=== PATIENT | female | born 1945 | race Caucasian/White ===

== ENCOUNTER → 2017-07-19 15:17 | Outpatient (CLI) | payer MEDICARE, SELFPAY ==
--- NOTE | 2017-07-19 | DI.RAD.S_ITS ---
PROCEDURE: XR HIP W PEL IF DONE RT 2V INDICATIONS: right hip pain TECHNIQUE: AP pelvis with lateral view(s) of the right hip. COMPARISON: None. FINDINGS: Bones: No fractures or dislocations. Pelvic ring appears intact. No suspicious bony lesions. There is asymmetric hip joint osteoarthritis, mild on the left and moderately severe on the right Soft tissues: The visualized bowel gas pattern is normal. No suspicious soft tissue calcifications. IMPRESSION: Asymmetric hip joint osteoarthritis, mild on the left and moderately severe on the right. Dictated by: Toan Quinones M.D. on 07/19/2017 at 15:45 Approved by: Toan Quinones M.D. on 07/19/2017 at 15:45
== END ==
PROVIDERS: Family Provider Family Medicine; PCP Family Medicine; Visit Provider Family Medicine
DX: M16.0 Bilateral primary osteoarthritis of hip (principal); M25.551 Pain in right hip
CPT/HCPCS: 73502

== ENCOUNTER → 2017-09-20 08:10 | Outpatient (CLI) | payer MEDICARE, SELFPAY ==
[2017-09-20 09:26] LABS: Add Manual Diff / Slide Review NO; Basophils Percent Auto 0.6 % (0-2); Hemoglobin 13.3 g/dL (12.0-16.0); Lymphocytes Percent Auto 25.8 % (25-40); Mean Corpuscular HGB Conc 34.1 % (30-36); Monocytes Percent Auto 8.8 % (3-14); Neutrophils Absolute Auto 3900 /uL (3000-5900); Neutrophils Percent Auto 62.8 % (50-75); Platelet Count 327 X10^3/uL (150-400); Red Blood Cell Count 4.43 X10^6/uL (4.0-5.2); Red Cell Distribution Width 14.1 % (11.6-14.8); White Blood Cell Count 6.2 X10^3/uL (4.5-11.0)
[2017-09-20 09:42] LABS: Carbon Dioxide 25 mmol/L (22-32); Chloride 104 mmol/L (98-107); HEMOLYSIS < 15 (0-50); Potassium 3.8 mmol/L (3.4-5.1); Sodium 141 mmol/L (137-145)
== END ==
PROVIDERS: Family Provider Family Medicine; PCP Family Medicine; Visit Provider Orthopaedic Surgery
DX: M16.11 Unilateral primary osteoarthritis, right hip (principal); Z01.818 Encounter for other preprocedural examination; Z01.812 Encounter for preprocedural laboratory examination
CPT/HCPCS: 36415; 80051; 85025; 93005

== ENCOUNTER 2017-10-02 11:17 | Inpatient (IN) | payer MEDICARE, SELFPAY ==
[2017-09-27 08:43] VITALS: BMI 24.6
[2017-10-02] VITALS (14 sets, daily range): BP systolic 123–176; BP diastolic 61–82; PULSE 62–87; RESP 14–20; TEMP 35.9–37.1; O2SAT 94–100; BMI 24.1
--- NOTE | 2017-10-02 11:38 | DI.RAD.S_ITS ---
PROCEDURE: XR PELVIS 1-2V INDICATIONS: prosthesis placement TECHNIQUE: 1 view of the lower pelvis acquired. COMPARISON: [facility] [place], [place], XR PELVIS WITH LATERAL HIP RIGHT, 09/20/2017, 14:58. FINDINGS: Bones: Patient is status post right hip arthroplasty, with hardware components in expected positions. The hip joint appears congruent. The visualized bony structures appear intact. Soft tissues: Overlying postoperative changes are noted. No suspicious soft tissue densities. IMPRESSION: Acute postoperative changes of total right hip arthroplasty. Dictated by: Mukesh Sosa M.D. on 10/02/2017 at 16:11 Approved by: Mukesh Sosa M.D. on 10/02/2017 at 16:12
--- NOTE | 2017-10-02 11:39 | SUR.OPER ---
Lateral on padded OR bed. Gel axillary roll. Arms secured on padded armboard with pillow supporting top arm. Padded hip positioner braces x4 - anterior and posterior chest and pelvis. Additional gel pad used anterior pelvis. Gel pad under bottom leg from knee to foot and secured with tape over sheet.
[2017-10-02] MEDS: ACETAMINOPHEN 325 MG TABLET 975 MG PO (11:55)
[2017-10-02] MEDS: PREGABALIN 75 MG CAPSULE PO (11:55)
[2017-10-02] MEDS: CELECOXIB 200 MG CAPSULE PO (11:55)
[2017-10-02] MEDS: LACTATED RINGERS 1,000 ML 42 ML IV ×2 (12:19→14:58)
--- NOTE | 2017-10-02 13:27 | PM.PREOP ---
Pre-operative Note Interval Note Pre-op Check: Yes History & Physical Reviewed by Physician Changes: No
[2017-10-02] MEDS: CEFAZOLIN 2 GM/100 ML FROZ.PIGGY IV ×2 (14:00→21:54)
[2017-10-02] MEDS: BUPIVACAINE 0.25% W/ EPI VIAL 50 ML INJ (14:42)
--- NOTE | 2017-10-02 15:49 | PM.OP.1 ---
Operative Date/Time/Diagnoses Date of procedure: 10/02/17 Time of procedure: 15:49 Pre-op diagnosis: Right hip degenerative joint disease Post-op diagnosis: same Procedure & Clinicians Procedure: Right total hip arthroplasty (CPT code 02459 with wardrobe assistant) Same procedure as scheduled: Yes Indications: Patient is an 71-year-old female with severe right hip DJD. The patient has pain with activities and at rest, limited ambulation and activity tolerance, difficulties with ADLs, and failure of conservative treatment. We have discussed the nature of condition, treatment options, risks and benefits, and patient elects to proceed with total hip arthroplasty and gives informed consent. Surgeon: Lalo Mccray Financial Aid Officer: Argenis Bro Anesthesia Type: General and Spinal Operative Notes Closure Type: primary Specimen(s): none sent Implants & Drains: Acetabulum: Koehler and Nephew R3 acetabular component size 48 mm Femoral component: Koehler and Nephew Synergy stem size 13 with high offset Femoral head: 32 mm + 0 cobalt chrome Estimated Blood Loss (mL): 100 Blood products transfused: none Procedure in detail: After satisfaction induction of anesthetic, and administration of IV antibiotics, the patient was positioned in the lateral decubitus position with all bony prominences well padded and pelvic position secured using a hip spanish professor positioning device. Right hip and lower extremity prepped and draped in the usual sterile fashion, 1st dose of intravenous tranexamic acid was administered, then a longitudinal incision was created centered over the greater trochanter and carried sharply through the skin and subcutaneous tissues down to the fascia desiree which was divided longitudinally and retracted with a Charnley retractor. External rotators visualize, cut, tagged, and retracted posteriorly, then the capsule was cut in a T-type fashion with the corners tagged and retracted. Hip was dislocated and femoral neck cut made according to preoperative templating. Acetabular retractors then placed, and the acetabular labrum and osteophytes were excised. The acetabulum was then sequentially reamed to 47 mm with an excellent circumferential ream and fit with the trial. The trial component was removed and a permanent size 48 mm Koehler and Nephew R3 acetabular component was selected, positioned, and impacted with satisfactory position and fixation achieved. Permanent liner was then inserted with the elevated lip directed posteriorly. Soft tissue then removed off the lateral femoral neck in the lateral neck was entered using a box osteotome. T-handled reamers placed down the canal followed by sequential broaching to 13 with the final broach left in place for trial reduction which demonstrated good leg length, range of motion, and stability characteristics with a 32 mm +0 trial ball, however stability was markedly improved with a high offset trial neck and 32 mm +0 ball combination. The trial and broach were removed, and a permanent size 13 high offset Koehler and Nephew Synergy stem was selected and inserted with excellent position and fixation achieved. Another trial reduction yielded the above characteristics so the trial ball was exchanged for a permanent 32 mm +0 cobalt chrome ball. The hip was irrigated and reduced and excellent leg length range of motion and stability characteristics were achieved and maintained. The hip was copiously irrigated, and the capsule repaired with #2 Ethibond, and the piriformis was repaired back to the greater trochanter with the same. Fascia desiree closed with interrupted #1 Ethibond sutures, and the subcutaneous tissues were closed in 2 layers of 0 Vicryl and 2 0 Vicryl. Skin was closed with nathaniel and sterile dressings applied. Second dose of tranexamic acid was administered intravenously, and the anesthetic was terminated. Complications: none Condition: stable Disposition: PACU Plan for aftercare: Patient will be admitted to the acute care [facility], and anticipate discharge on postop day 1-2 with follow-up in office in 10-14 days. Outpatient physical therapy will be arranged and patient will continue to observe posterior hip precautions. Patient will continue use of postoperative Lovenox for 10 days postop.
--- NOTE | 2017-10-02 15:53 | P.OP_ITS ---
Operative Date/Time/Diagnoses Date of procedure: 10/02/17 Time of procedure: 15:49 Pre-op diagnosis: Right hip degenerative joint disease Post-op diagnosis: same Procedure & Clinicians Procedure: Right total hip arthroplasty (CPT code 74297 with emergency medicine physician assistant) Same procedure as scheduled: Yes Indications: Patient is an 71-year-old female with severe right hip DJD. The patient has pain with activities and at rest, limited ambulation and activity tolerance, difficulties with ADLs, and failure of conservative treatment. We have discussed the nature of condition, treatment options, risks and benefits, and patient elects to proceed with total hip arthroplasty and gives informed consent. Surgeon: Lalo Mccray Prepress Specialist: Argenis Bro Anesthesia Type: General and Spinal Operative Notes Closure Type: primary Specimen(s): none sent Implants & Drains: Acetabulum: Koehler and Nephew R3 acetabular component size 48 mm Femoral component: Koehler and Nephew Synergy stem size 13 with high offset Femoral head: 32 mm + 0 cobalt chrome Estimated Blood Loss (mL): 100 Blood products transfused: none Procedure in detail: After satisfaction induction of anesthetic, and administration of IV antibiotics, the patient was positioned in the lateral decubitus position with all bony prominences well padded and pelvic position secured using a hip security system technician positioning device. Right hip and lower extremity prepped and draped in the usual sterile fashion, 1st dose of intravenous tranexamic acid was administered, then a longitudinal incision was created centered over the greater trochanter and carried sharply through the skin and subcutaneous tissues down to the fascia desiree which was divided longitudinally and retracted with a Charnley retractor. External rotators visualize, cut, tagged, and retracted posteriorly, then the capsule was cut in a T-type fashion with the corners tagged and retracted. Hip was dislocated and femoral neck cut made according to preoperative templating. Acetabular retractors then placed, and the acetabular labrum and osteophytes were excised. The acetabulum was then sequentially reamed to 47 mm with an excellent circumferential ream and fit with the trial. The trial component was removed and a permanent size 48 mm Koehler and Nephew R3 acetabular component was selected, positioned, and impacted with satisfactory position and fixation achieved. Permanent liner was then inserted with the elevated lip directed posteriorly. Soft tissue then removed off the lateral femoral neck in the lateral neck was entered using a box osteotome. T-handled reamers placed down the canal followed by sequential broaching to 13 with the final broach left in place for trial reduction which demonstrated good leg length, range of motion, and stability characteristics with a 32 mm +0 trial ball, however stability was markedly improved with a high offset trial neck and 32 mm +0 ball combination. The trial and broach were removed, and a permanent size 13 high offset Koehler and Nephew Synergy stem was selected and inserted with excellent position and fixation achieved. Another trial reduction yielded the above characteristics so the trial ball was exchanged for a permanent 32 mm +0 cobalt chrome ball. The hip was irrigated and reduced and excellent leg length range of motion and stability characteristics were achieved and maintained. The hip was copiously irrigated , and the capsule repaired with #2 Ethibond, and the piriformis was repaired back to the greater trochanter with the same. Fascia desiree closed with interrupted #1 Ethibond sutures, and the subcutaneous tissues were closed in 2 layers of 0 Vicryl and 2 0 Vicryl. Skin was closed with nathaniel and sterile dressings applied. Second dose of tranexamic acid was administered intravenously , and the anesthetic was terminated. Complications: none Condition: stable Disposition: PACU Plan for aftercare: Patient will be admitted to the acute care vera, and anticipate discharge on postop day 1-2 with follow-up in office in 10-14 days. Outpatient physical therapy will be arranged and patient will continue to observe posterior hip precautions. Patient will continue use of postoperative Lovenox for 10 days postop.
--- NOTE | 2017-10-02 16:51 | PC.NURSE ---
Addendum entered by Jessica Small R.N. 10/02/17 19:34: RA oxygen 88% while sleeping, pulse ox alarming. 2L O2 NC applied, saturation now 95-98% Emi reports residual numbness to RLE, unable to feel cold or warm sensation to leg, does feel pressure of nurse hand. R hip drsg is CDI. Able to void via bedpan, although missed and soaked towel and inc pad. Linens changed. After laying patient flat for repositioning, she sat back up and immediately had 100 ml emesis in blue bag. Denies feeling nauseated, saying I didn't expect that. Zofran SL administered. Pt instructed to call if she has more emesis or nausea, or any pain. Spouse visiting at bedside. Original Note: Post-op note: Emi brought up from PACU via hospital bed. She is awake & Ox3. Denies any pain or nausea, states hungry. Ice water, juice & jello given, post-op teaching given. Post-op VS stable. RA oxygen 96% Right hip drsg is CDI, ice pack in place. Reports numbness to legs, wiggling toes and can move both feet. SCD's placed bilaterally. Call button in reach, pt oriented to hospital room & call button, instructed her to call nurse for any questions or concerns. Visiting with family in room.
[2017-10-02] MEDS: LACTATED RINGERS 1,000 ML 125 ML IV (17:28)
[2017-10-02] MEDS: ONDANSETRON 4 MG ODT PO ×2 (18:54→22:13)
[2017-10-02] MEDS: METOCLOPRAMIDE 10 MG/2 ML INJ IV (20:30)
[2017-10-03] MEDS: LACTATED RINGERS 1,000 ML 125 ML IV (01:34)
[2017-10-03 04:57] VITALS: BP 116/71; PULSE 87; RESP 16; TEMP 36.4; O2SAT 98
[2017-10-03 05:41] LABS: Hematocrit 33.3 % (36-46); Hemoglobin 11.3 g/dL (12.0-16.0)
[2017-10-03 05:43] VITALS: BP 116/71; PULSE 87; RESP 17; TEMP 36.4; O2SAT 98
[2017-10-03] MEDS: CEFAZOLIN 2 GM/100 ML FROZ.PIGGY IV (06:01)
[2017-10-03] MEDS: PANTOPRAZOLE 40 MG TABLET PO (06:05)
[2017-10-03] MEDS: LEVOTHYROXINE 50 MCG TABLET PO (06:05)
--- NOTE | 2017-10-03 08:11 | PM.DS.1 ---
History of Present Illness Date Patient Seen: 10/03/17 Time Patient Seen: 08:23 Chief complaint: total hip arthroplasty [id number] Narrative: Patient seen bedside status post right PAKO postop day 1. Patient is doing well, her pain is well controlled and the nausea that she experienced overnight has resolved. She has not yet worked with physical therapy but would like to go home once cleared by them. She denies any chest pain shortness of breath nausea vomiting Discharge Providers Date of admission: 10/02/17 11:17 Primary care physician: Ford Bello MD Consults: 10/02/17 16:47 Consult to Discharge Planning Routine Comment: Consult to Physical Therapy Evaluate & Treat Comment: Physician Instructions: post op PAKO protocol Consult to Respiratory Therapy Evaluate & Treat Comment: Physician Instructions: Evaluate and treat 10/02/17 17:26 Consult to Dietitian, Adult Routine Comment: Reason For Exam: recent weight loss, Discharge provider: Nubia Diaz PA-C Summary Discharge Diagnosis: Right hip osteoarthritis Hospital Course: Patient is admitted status post right PAKO by Dr. Mccray on 10/02/2017. She has transitioned to the acute Care for after tolerating the procedure well no major complications. She had a bout of nausea overnight a bit difficult for her to work with physical therapy but that has since resolved. She is ready to be discharged home with outpatient PT once cleared by Physical therapy. She will have Lovenox for DVT prophylaxis and hydrocodone for pain. Status at Discharge Cognitive/behavioral status at discharge: Alert and oriented x4 Functional status at discharge: uses cane/walker Overall status at discharge: patient is progressing back to baseline Time Spent with Patient Less than 30 minutes Exam Vital Signs (past 8 hours): - 10/03/17 04:57 10/03/17 05:43 Temperature 97.5 F L 97.5 F L Pulse Rate 87 87 Respiratory Rate 16 17 Blood Pressure 116/71 116/71 Pulse Oximetry 98 98 Oxygen Delivery Method Nasal Cannula Narrative Exam Narrative: The patient is well-developed well-nourished in no acute distress. Patient alert and oriented x3. Exam with dressing that is clean dry and intact on the right hip. She has full range of motion at the knee and ankle in her calves are soft and compressible. She is neurovascularly intact in the right lower extremity. Objective Labs Result Diagrams: 10/03/17 05:10 Labs: Laboratory Results - last 24 hr 10/03/17 05:10 Hgb 11.3 L Hct 33.3 L Discharge Plan Discharge Plan Patient Disposition: Home, Self-Care Discharge Med Rec/Prescriptions Prescriptions: New enoxaparin [Lovenox] 40 mg/0.4 mL Syringe 40 mg Sub-Q DAILY Qty: 4 RF: 0 hydrocodone-acetaminophen 5-325 mg Tablet 1 tab PO Q4HR PRN (Reason: pain) Qty: 60 RF: 0 hydroxyzine pamoate 25 mg Capsule 25 mg PO Q6HR PRN (Reason: Spasms) Qty: 0 RF: 0 Continue omeprazole 40 mg Capsule,Delayed Release(Dr/Ec) 40 mg PO QAM RF: 0 trazodone 100 mg Tablet 100 - 150 mg PO BEDTIME PRN (Reason: Sleep) RF: 0 levothyroxine [Synthroid] 50 mcg Tablet 50 mcg PO DAILY RF: 0 albuterol sulfate [ProAir HFA] 90 mcg/actuation Hfa Aerosol Inhaler 2 puff INHALATION Q4-6H PRN (Reason: asthma) RF: 0 Follow up/Referrals: [facility] [Provider Group] - 10/13/17 4:00 pm (f/u with Argenis Bro PA-C at the [facility] office) Provider Discharge Instructions Diet: Diet as Tolerated Activity: WBAT, use walker to ambulate until cleared by PT. Follow posterior hip precautions Cold/Heat Therapy: Ice for 20 minutes at a time at least hourly Wound Care Report to your healthcare provider any signs of infection, such as:: chills, fever, night sweats, increased pain and unusual drainage Dressing: Keep dressing clean, dry, and intact until follow up visit. Visit Report/Discharge Packet Instructions: DI for Hip Replacement Visit Report Forms: Stroke Signs & Symptoms Discharge Data Primary Care Provider: Ford Bello Attending Provider: Lalo Mccray Admit Date/Time: 10/02/17 11:17 Quality VTE Deep Vein Thrombosis/Pulmonary Embolism Present on Admission: No
[2017-10-03 09:00] VITALS: BP 144/76; PULSE 85; RESP 18; TEMP 36.6; O2SAT 98
[2017-10-03] MEDS: ENOXAPARIN 40 MG/0.4 ML SYRINGE SUBCUT (09:45)
[2017-10-03 10:06] VITALS: O2SAT 98
--- NOTE | 2017-10-03 10:16 | CM.DANOTE ---
Discharge Planning/Care Management DCP: assessment: case received, EMR reviewed and met with pt and her at 0800. Introduced self and role. Pt is a 71 year old female who admitted yesterday for a planned PAKO. Surgeon: Dr. Mccray Payer: Medicare and [facility]. PCP: Dr. Bello PT is ordered. OT order is obtained. Pt is clear that her plan is for home when stable for same and her expectation was that she would probably be here for a couple days. She said Dr. Mccray had discussed snf rehab option with her but noted I told him I had no intention of going anywhere other than home. Her confirms she is able to give supportive care. P: check in again prn and follow for d/c needs that may arise. Pt and spouse are aware that Medicare will cover an array rehab options at d/c. CM Discharge Assessment Start: 10/03/17 09:59 Freq: Status: Active Protocol: Document 10/03/17 09:59 ITV (Rec: 10/03/17 10:16 ITV [id number]) Discharge Planning Assessment History Provided By Patient Family Member Medical Record Is this patient on Medicare? Yes Prior Living Arrangements House Household Members spouse Independent with ADL's Yes Is patient alert and oriented? Yes Comment pt with planned PAKO, OT and PT will see her today. She plans home with spouse supportive assist (he is at bedside and will be part of therapy training.) Discharge Plan Home Transportation Arrangement spouse will drive her Additional Comment ortho has put a d/c order in but is reportedly pending how pt does today medically and with therapy Review Status In Process Next Review Type Continued Stay Review
--- NOTE | 2017-10-03 11:55 | OT.IP.EVAL ---
Current Diagnoses Unilateral primary osteoarthritis, right hip (10/02/17) Surgery Performed Operation Date: 10/02/17 14:30 Actual Procedures p Total Hip Arthroplasty(Right) - Lalo Mccray MD Past Medical History (Last Reviewed 10/03/17 @ 08:22 by Isis Woods, PT) Asthma (Acute) Elevated cholesterol (Acute) GERD (gastroesophageal reflux disease) (Acute) Hearing loss (Acute) Hypothyroidism (Acute) Melanoma (Acute) Surgical History (Last Reviewed 10/03/17 @ 08:22 by Isis Woods, PT) Hx of Achilles tendon repair (Acute) Hx of tonsillectomy (Acute) Status post cataract extraction of both eyes with insertion of intraocular lens (Acute) Occupational Therapy Inpatient Evaluation/Re-Eval M1 PT/OT-IP Prior Functional Status Start: 10/03/17 11:48 Freq: NEEDED Status: Active Protocol: Document 10/03/17 11:55 PJOmid (Rec: 10/03/17 17:06 DNANIELLE [id number]) Medical Review Prior Functional Status Medical History Reviewed Yes Diet/Fluid Consistency Regular Communication WNL Mobility and Gait Independent without device, community distances Activities of Daily Living and IADL's Independent Social History Household Members spouse Living Arrangements House Number of Floors (Floors) One Floor Number of Stairs To Enter/Railing? 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 Pt declines sock aid as she prefers to assist PRN. M2 OT-IP Current Condition Start: 10/03/17 16:54 Freq: Status: Active Protocol: Document 10/03/17 11:55 PJM (Rec: 10/03/17 17:06 PJM [id number]) Occupational Therapy Current Condition Current Condition Evaluation Date 10/03/17 Treatment Diagnosis decreased self care, functional mobility after R PAKO Diagnosis Onset Date 10/02/17 Post Operative Precautions Posterior Hip Precautions No Hip Flexion > 90 degrees No Hip Internal Rotation No Hip Adduction Weight Bearing Status Weight Bearing Status Weight Bear as Tolerated M3 OT- IP Subjective and Pain Start: 10/03/17 16:54 Freq: Status: Active Protocol: Document 10/03/17 11:55 DANNIELLEOmid (Rec: 10/03/17 17:06 [facility] [id number]) OT- Subjective Occupational Therapy Visit Type Type Initial Evaluation Visit Start Time 11:20 Visit Stop Time 11:55 Total Visit Minutes 35 Notes Pt's here for education. Occupational Therapy Visit Comments Patient Comments I need you to remind me to do everything right. I don't want to break the rules. Patient/Caregiver Goals to go home OT Pain Assessment Pain When Pain Assessed After Treatment Pain Present Pain Present Denied Pain M4 OT- IP ADL's Start: 10/03/17 16:54 Freq: Status: Active Protocol: Document 10/03/17 11:55 CHARLEEN (Rec: 10/03/17 17:06 [facility] [id number]) OT [id number] General Evaluation Diet Level for Self-Feeding regular Self-Feeding Ability Independent OT ADL-Grooming General Evaluation Grooming Ability Standby Assistance Areas Needing Assistance Face Washing Comments OT Grooming Comments standing at sink OT ADL-Oral Care General Eval Oral Care Ability Standby Assistance Comments Oral Care Comments standing at sink OT ADL-Dressing Comments OT Dressing Comments Began education re: equipment options OT ADL-Toileting General Evaluation Toileting Ability Standby Assistance Areas Needing Assistance Manage Clothing Perform Perineal Hygiene Devices Toileting Assistive Devices Raised Toilet Seat OT ADL-Bathing Comments OT Bathing Comments to be assessed M5 OT- IP IADL's Start: 10/03/17 16:54 Freq: Status: Active Protocol: Document 10/03/17 11:55 CHARLEEN (Rec: 10/03/17 17:06 [facility] [id number]) OT-Instrumental Activities of Daily Living Deficits IADL Deficits Identified Deficits Home Safety Awareness Awareness of Need for Assistance at Home Good Awareness Ability to Problem Solve Emergency Able to Problem Solve Situations Medication Management Medication Management No Deficits Identified Money Management Money Management No Deficits Identified Meal Preparation Meal Preparation Caregiver Provides Assist Meal Preparation Comments to assist until pt able Financial Systems Director Financial Systems Director Caregiver Provides Assist Financial Systems Director Comments to assist until pt able Driving Driving Caregiver Provides Assist Driving Comments to assist until pt able M6 OT- IP Functional Cognition Start: 10/03/17 16:54 Freq: Status: Active Protocol: Document 10/03/17 11:55 CHARLEEN (Rec: 10/03/17 17:06 [facility] [id number]) Cognitive Factors Limiting Selfcare Function Cognitive Ability Level of Alertness Alert Patient Orientation Name Age Birthday Month Date Year Day of Week Place Situation Attention Span Ability Capable of Focused Attention Ability to Follow Commands Able to Follow One Step Commands Memory Description Short Term Impaired Safety Awareness Decreased Ability to Apply Precautions Problem Solving Ability Needs Assist to Identify Solutions Cognitive Comments Cognitive Assessment Comments Pt needs mod verbal cues to avoid forward bending and twisting on turns. able to cue pt appropriately. OT- Vision and Hearing OT- Hearing Assessment OT- Hearing Assessment WFL OT- Vision Assessment Visual Acuity WFL Glasses All The Time Vision Assessment Comments Pt denies any recent changes. M7 OT- IP Mobility and Balance Start: 10/03/17 16:54 Freq: Status: Active Protocol: Document 10/03/17 11:55 PJM (Rec: 10/03/17 17:06 [facility] [id number]) OT- Bed Mobility Assessment Scooting Scooting Up and Down in Bed Minimal Assistance OT-Transfer Assessment Sit to and From Stand Sit to and from Stand Contact Guard Assistance Transfers Transfer Ability Contact Guard Assistance Technique Transfer Destination Chair Toilet Transfer Technique Stand Step Pivot Devices Transfer Assistive Devices Gait Belt Front Wheeled Walker Comments Mobility Comments Mod cues for hand placement and R foot placement OT- Gait Assessment Gait Gait Assistance Required: Contact Guard Assist Assistive Devices Assistive Device Gait Belt Front Wheeled Walker OT- Balance Assessment Sitting Balance and Reactions Static Sitting Balance Ability Normal Dynamic Sitting Balance Ability Good Standing Balance and Reactions Static Standing Balance Ability Good Dynamic Standing Balance Ability Good M8 OT- IP Objective Assessments Start: 10/03/17 16:54 Freq: Status: Active Protocol: Document 10/03/17 11:55 PJM (Rec: 10/03/17 17:06 [facility] [id number]) OT Gross Range of Motion Upper Extremity Range of Motion Assessment Within Functional Limits OT Strength Upper Extremity Strength Assessment Within Functional Limits OT- Coordination Assessment Upper Extremity Finger to Nose Test Within Functional Limits Finger Tapping Test Within Functional Limits OT Sensation Assessment Comments Summary Comments BUE WNL M9 OT- IP Assessment and Plan Start: 10/03/17 16:54 Freq: Status: Active Protocol: Document 10/03/17 11:55 PJM (Rec: 10/03/17 17:06 [facility] [id number]) OT Summary Assessment and Plan Potential Rehabilitation Potential Excellent Analytic Complexity at Evaluation Low Summary OT Impairments Functional Cognition Functional Mobility Dressing Bathing Shower Transfers Assessment Summary Low complexity OT assessment completed with emphasis on adapted self care skills within posterior hip precautions. Pt has mild deficits in functional mobility and lower body dressing, bathing, toileting and need mod cues to follow hip precautions during functional tasks. Supportive can cue pt appropriately and will provide 24 hr assist at d/c. Plan 1 additional OT visit after lunch for shower and dressing training prior to d/c later today. Goals Dressing Goal Standby Assistance Bathing Goal Minimal Assistance Shower Transfer Goal Contact Guard Assistance Patient/Caregiver Education Goal Demonstrate Post-Op Precautions Caregiver Independent Assisting Patient Frequency of Treatment Frequency Of Treatment Twice a Day Treatment Plan OT Treatment Plan ADL Training Patient/Family Education Discharge Planning Discharge Recommendations OT Discharge Recommendations Home with 19/09 Assist
--- NOTE | 2017-10-03 11:58 | PT.IIE ---
Current Diagnoses Unilateral primary osteoarthritis, right hip (10/02/17) Surgery Performed Operation Date: 10/02/17 14:30 Actual Procedures p Total Hip Arthroplasty(Right) - Lalo Mccray MD Surgical History (Last Reviewed 10/03/17 @ 08:22 by Isis Woods, PT) Hx of Achilles tendon repair (Acute) Hx of tonsillectomy (Acute) Status post cataract extraction of both eyes with insertion of intraocular lens (Acute) Medical History (Last Reviewed 10/03/17 @ 08:22 by Isis Woods, PT) Asthma (Acute) Elevated cholesterol (Acute) GERD (gastroesophageal reflux disease) (Acute) Hearing loss (Acute) Hypothyroidism (Acute) Melanoma (Acute) Physical Therapy Inpatient Evaluation/Re-Eval M1 PT/OT-IP Prior Functional Status Start: 10/03/17 11:48 Freq: NEEDED Status: Active Protocol: Document 10/03/17 11:48 DLM (Rec: 10/03/17 11:58 DLM [id number]) Medical Review Prior Functional Status Medical History Reviewed Yes Diet/Fluid Consistency Regular Communication WNL Mobility and Gait Independent without device, community distances Activities of Daily Living and IADL's Independent Social History Household Members spouse Living Arrangements House Number of Floors (Floors) One Floor Number of Stairs To Enter/Railing? 0 Home Environment Standard Height Toilet Home Equipment Front Wheel Walker Raised Toilet Seat w/Armrests Employment Status Retired M2 PT-IP Current Condition Start: 10/03/17 11:48 Freq: NEEDED Status: Active Protocol: Document 10/03/17 11:48 DLM (Rec: 10/03/17 11:58 DLM [id number]) Physical Therapy Current Condition Current Condition Evaluation Date 10/03/17 Treatment Diagnosis right PAKO, posterior, impaired gait Precautions Posterior Hip Precautions No Hip Flexion > 90 degrees No Hip Internal Rotation No Hip Adduction Weight Bearing Status Weight Bearing Status Weight Bear as Tolerated M3 PT-IP Subjective Start: 10/03/17 11:48 Freq: NEEDED Status: Active Protocol: Document 10/03/17 11:48 DLM (Rec: 10/03/17 11:58 DLM [id number]) Subjective Physical Therapy Visit Type Type Initial Evaluation Visit Start Time 09:40 Visit Stop Time 10:26 Total Visit Minutes 46 Physical Therapy Visit Comments Patient Comments She hopes to go home today, soreness is starting in her hip Therapy Pain Assessment Pain When Pain Assessed During Mobility Pain Present Pain Present Pain Reported Location Right Hip Intensity 3 Scale Used Numeric (1 - 10) Description Aching Pain Management Techniques Apply Cold Re-positioning M4 PT-IP Mobility and Gait Start: 10/03/17 11:48 Freq: NEEDED Status: Active Protocol: Document 10/03/17 11:48 DL (Rec: 10/03/17 11:58 DL [id number]) PT-Bed Mobility Assessment Supine to Sit Supine to Sit Minimal Assistance Scooting Scooting to Edge of Bed Standby Assistance PT-Transfer Assessment Sit to and From Stand Sit to and from Stand Contact Guard Assistance Use of Upper Extremities Equipment Transfer Assistive Device Gait Belt Front Wheeled Walker Transfers Transfer Destination Chair Transfer Technique Stand Step Pivot Transfer Ability Level of Assist Contact Guard Assistance Gait Assessment Gait Gait Assistance Required: Contact Guard Assist Distance (Feet) (feet) 20 Able to Maintain Weight Bearing Status Yes During Gait Assistive Devices Assistive Device Gait Belt Front Wheeled Walker Orthotic/Prosthetic Devices or Brace: No Gait Deviations General Gait Pattern Antalgic Step-to Gait Factors Limiting Gait Function Factors Limiting Gait Function Decreased Activity Tolerance Decreased Strength Pain Comments Gait Comments pt left up in recliner with Spouse visiting and call light close, ice on right thigh area PT-Balance Assessment Sitting Balance and Reactions Static Sitting Balance Ability Normal Dynamic Sitting Balance Ability Normal Standing Balance and Reactions Static Standing Balance Ability Good Dynamic Standing Balance Ability Good Device Used FWW M5 PT-IP Objective Assessments Start: 10/03/17 11:48 Freq: NEEDED Status: Active Protocol: Document 10/03/17 11:48 DL (Rec: 10/03/17 11:58 [facility] [id number]) Orientation Orientation/Cognition Level of Alertness Alert Orientation Name Age Birthday Month Date Year Day of Week Place Situation Language Function Ability No Deficits Noted Safety Awareness Understands Safety Issues Memory Description No Deficits Noted Comments she needs repetition of hip precaution information and verbal cuing during mobility Gross Range of Motion Upper Extremity ROM Assessment Within Functional Limits Lower Extremity ROM Assessment Right Impaired Impairments post-op restrictions right hip with pain Strength Upper Extremity Strength Assessment Within Functional Limits Lower Extremity Strength Assessment Right Impaired Hip flexion 2+/5, needs assist to move Left LE in bed Knee 4/5 Ankle DF 5/5 Coordination Assessment Gross Coordination Gross Coordination WNL Sensation Assessment Sensation Gross Sensation WNL Muscle Tone Muscle Tone WNL Yes M6 PT-IP Treatment Start: 10/03/17 11:48 Freq: NEEDED Status: Active Protocol: Document 10/03/17 11:48 DLM (Rec: 10/03/17 11:58 DLM [id number]) Physical Therapy Treatment Exercises Exercises Ankle Pumps Gluteal Sets Quad Sets Education Education Provided Precautions Weight Bearing Status Post-Op Packet Safety Equipment Issued Equipment Type and Company pt has her FWW from home in her room M7 PT-IP Assessment and Plan Start: 10/03/17 11:48 Freq: NEEDED Status: Active Protocol: Document 10/03/17 11:48 DLM (Rec: 10/03/17 11:58 DLM [id number]) PT Summary Assessment and Plan Potential Rehabilitation Potential Excellent Status of Condition at Evaluation Evolving Summary Impairments Pain ROM Strength Balance Bed Mobility Transfers Gait Activity Tolerance Assessment Summary She tolerated activity well this visit with mild increase in hip pain with activity. She has a supportive Spouse to help at discharge who is present this visit and participated in training. She needs reminders for her hip precautions. Pt has a tall bed at home and has to be able to get up on a step before getting into bed. Will plan to do one more treatment session with plan for possible discharge home this afternoon. Goals Bed Mobility Goal Independent Transfer Goal Independent Front Wheeled Walker Gait Goal Independent Front Wheel Walker Gait Distance 100 Other Goals up and down from a step with fWW to get onto tall bed, SBA Days to Meet Goals 2 Frequency of Treatment Frequency Of Treatment Twice a Day Treatment Plan Physical Therapy Treatment Plan Bed Mobility Training Transfer Training Gait Training Therapeutic Exercise Balance Retraining Post Op Education Discharge Planning Hot or Cold Pack Other Recommendations and Next Treatment up and down step for getting Focus into bed at home, HEP, hip precaution education Recommendations To Nursing Amount of Assist Needed 1 Person Assist Discharge Recommendations PT Discharge Recommendations Home with Assistance Outpatient PT
--- NOTE | 2017-10-03 14:20 | OT.IP.TRT ---
Current Diagnoses Unilateral primary osteoarthritis, right hip (10/02/17) Surgery Performed Operation Date: 10/02/17 14:30 Actual Procedures p Total Hip Arthroplasty(Right) - Lalo Mccray MD Occupational Therapy Treatment Note M2 OT-IP Current Condition Start: 10/03/17 16:54 Freq: Status: Active Protocol: Document 10/03/17 11:55 PJM (Rec: 10/03/17 17:06 PJM [id number]) Occupational Therapy Current Condition Current Condition Evaluation Date 10/03/17 Treatment Diagnosis decreased self care, functional mobility after R PAKO Diagnosis Onset Date 10/02/17 Post Operative Precautions Posterior Hip Precautions No Hip Flexion > 90 degrees No Hip Internal Rotation No Hip Adduction Weight Bearing Status Weight Bearing Status Weight Bear as Tolerated M3 OT- IP Subjective and Pain Start: 10/03/17 16:54 Freq: Status: Active Protocol: Document 10/03/17 14:20 PJM (Rec: 10/03/17 17:15 PJM [id number]) OT- Subjective Occupational Therapy Visit Type Type Treatment Note Visit Start Time 13:40 Visit Stop Time 14:20 Total Visit Minutes 40 Notes here for education. Occupational Therapy Visit Comments Patient Comments I want to take a shower before I go home. OT Pain Assessment Pain When Pain Assessed After Treatment Pain Present Pain Present Pain Reported Location Right Hip Intensity 6 Scale Used Numeric (1 - 10) Description Aching M4 OT- IP ADL's Start: 10/03/17 16:54 Freq: Status: Active Protocol: Document 10/03/17 14:20 PJM (Rec: 10/03/17 17:15 PJM [id number]) OT ADL-Dressing General Eval Upper Body Dressing Ability Independent Lower Body Dressing Ability Moderate Assistance Areas Needing Assistance Pants/Shorts Socks Shoes Assistive Devices Dressing Assistive Devices Long Handled Shoe Horn Housecleaner Floor Comments OT Dressing Comments Pt educated re: use of medical staffing coordinator and long shoe horn, but she prefers to assist today due to fatigue. Housecleaner Floor and longshoe horn provided. Pt declines sock aid, to assist PRN. Pt indep doffing B socks with medical staffing coordinator. OT ADL-Toileting General Evaluation Toileting Ability Independent OT ADL-Bathing Bathing Type Bathing Type Shower General Evaluation Bathing Ability Minimal Assistance Areas Needing Assistance Wash/Dry Lower Extremities Devices Bathing Equipment Long Handled Sponge or Stock Feeder Held Shower Sprayer Shower Chair with Arms Grab Bars Comments OT Bathing Comments Pt plans to stand at home in shower stall with SBA from . Provided education/ demo re: shower stall transfer technique for crossing threshold and pt/hsuabnd verbalize understanding. can assist PRN with shower. Pt needs min verbal cues to avoid forward bending. M6 OT- IP Functional Cognition Start: 10/03/17 16:54 Freq: Status: Active Protocol: Document 10/03/17 14:20 PJM (Rec: 10/03/17 17:15 PJ [id number]) Cognitive Factors Limiting Selfcare Function Cognitive Ability Level of Alertness Alert Cognitive Comments Cognitive Assessment Comments Pt needed min cues this session to follow hip precautions. cueing her appropriately. M7 OT- IP Mobility and Balance Start: 10/03/17 16:54 Freq: Status: Active Protocol: Document 10/03/17 14:20 PJM (Rec: 10/03/17 17:15 PJ [id number]) OT-Transfer Assessment Sit to and From Stand Sit to and from Stand Standby Assistance Transfers Transfer Ability Contact Guard Assistance Technique Transfer Destination Car Shower Stall Comments Mobility Comments Provided education re: shower stall and car transfers and pt / verbalize understanding. OT- Gait Assessment Gait Gait Assistance Required: Standby Assistance Assistive Devices Assistive Device Gait Belt Front Wheeled Walker OT- Balance Assessment Sitting Balance and Reactions Static Sitting Balance Ability Good Dynamic Sitting Balance Ability Good Standing Balance and Reactions Static Standing Balance Ability Good Dynamic Standing Balance Ability Good M9 OT- IP Assessment and Plan Start: 10/03/17 16:54 Freq: Status: Active Protocol: Document 10/03/17 14:20 PJM (Rec: 10/03/17 17:15 [facility] [id number]) OT Summary Assessment and Plan Potential Rehabilitation Potential Good Summary Assessment Summary All OT education completed with pt and and all OT goals achieved for this admission. Pt plans to return home today with 24 hr assist from supportive . No further OT services needed. Frequency of Treatment Frequency Of Treatment Discharge Discharge Recommendations OT Discharge Recommendations Home with / Assist
[2017-10-03] MEDS: HYDROCODONE/ACET 5/325 TABLET 1 TAB PO (14:25)
--- NOTE | 2017-10-03 14:55 | PT.IPTN ---
Current Diagnoses Unilateral primary osteoarthritis, right hip (10/02/17) Surgery Performed Operation Date: 10/02/17 14:30 Actual Procedures p Total Hip Arthroplasty(Right) - Lalo Mccray MD Physical Therapy Treatment Note M2 PT-IP Current Condition Start: 10/03/17 11:48 Freq: NEEDED Status: Active Protocol: Document 10/03/17 11:48 DLM (Rec: 10/03/17 11:58 DLM [id number]) Physical Therapy Current Condition Current Condition Evaluation Date 10/03/17 Treatment Diagnosis right PAKO, posterior, impaired gait Precautions Posterior Hip Precautions No Hip Flexion > 90 degrees No Hip Internal Rotation No Hip Adduction Weight Bearing Status Weight Bearing Status Weight Bear as Tolerated M3 PT-IP Subjective Start: 10/03/17 11:48 Freq: NEEDED Status: Active Protocol: Document 10/03/17 14:55 DLM (Rec: 10/03/17 16:09 DLM [id number]) Subjective Physical Therapy Visit Type Type Treatment Note Visit Start Time 14:12 Visit Stop Time 14:55 Total Visit Minutes 43 Physical Therapy Visit Comments Patient Comments She is tired but still wants to go home today, she is confident her can help her. Therapy Pain Assessment Pain When Pain Assessed During Mobility Pain Present Pain Present Pain Reported Location Right Hip Intensity 4 Scale Used Numeric (1 - 10) Description Aching Pain Management Techniques Apply Cold M4 PT-IP Mobility and Gait Start: 10/03/17 11:48 Freq: NEEDED Status: Active Protocol: Document 10/03/17 14:55 DLM (Rec: 10/03/17 16:09 DLM [id number]) PT-Bed Mobility Assessment Supine to Sit Supine to Sit Minimal Assistance Sit to Supine Sit to Supine Minimal Assistance Scooting Scooting to Edge of Bed Standby Assistance PT-Transfer Assessment Sit to and From Stand Sit to and from Stand Standby Assistance Use of Upper Extremities Equipment Transfer Assistive Device Gait Belt Front Wheeled Walker Transfers Transfer Destination Chair Transfer Technique Stand Step Pivot Transfer Ability Level of Assist Standby Assistance Gait Assessment Gait Gait Assistance Required: Standby Assistance Distance (Feet) (feet) 10 Able to Maintain Weight Bearing Status Yes During Gait Assistive Devices Assistive Device Gait Belt Front Wheeled Walker Gait Deviations General Gait Pattern Antalgic Step-to Gait Factors Limiting Gait Function Factors Limiting Gait Function Decreased Strength Pain Comments Gait Comments her distance was limited by fatigue this visit and focus on the step Stair Climbing Assessment Evaluation Level of Assist On Stairs Standby Assistance Devices Stair Climbing Assistive Devices Front Wheel Walker Technique/Endurance Stair Climbing Direction Ascend Stair Climbing Technique Step to Step Number of Steps Climbed 1 Query Text: Comments Stair Climbing Comments stepping backwards up on platform step before getting up onto tall bed, simulated home set-up as possible PT-Balance Assessment Sitting Balance and Reactions Static Sitting Balance Ability Normal Dynamic Sitting Balance Ability Normal Standing Balance and Reactions Static Standing Balance Ability Good Dynamic Standing Balance Ability Good Device Used FWW M5 PT-IP Objective Assessments Start: 10/03/17 11:48 Freq: NEEDED Status: Active Protocol: Document 10/03/17 11:48 DLM (Rec: 10/03/17 11:58 DLM [id number]) Orientation Orientation/Cognition Level of Alertness Alert Orientation Name Age Birthday Month Date Year Day of Week Place Situation Language Function Ability No Deficits Noted Safety Awareness Understands Safety Issues Memory Description No Deficits Noted Comments she needs repetition of hip precaution information and verbal cuing during mobility Gross Range of Motion Upper Extremity ROM Assessment Within Functional Limits Lower Extremity ROM Assessment Right Impaired Impairments post-op restrictions right hip with pain Strength Upper Extremity Strength Assessment Within Functional Limits Lower Extremity Strength Assessment Right Impaired Hip flexion 2+/5, needs assist to move Left LE in bed Knee 4/5 Ankle DF 5/5 Coordination Assessment Gross Coordination Gross Coordination WNL Sensation Assessment Sensation Gross Sensation WNL Muscle Tone Muscle Tone WNL Yes M6 PT-IP Treatment Start: 10/03/17 11:48 Freq: NEEDED Status: Active Protocol: Document 10/03/17 14:55 DLM (Rec: 10/03/17 16:09 DL [id number]) Physical Therapy Treatment Exercises Exercises Ankle Pumps Gluteal Sets Quad Sets Heel Slides Supine Hip Abduction Education Education Provided Precautions Weight Bearing Status Post-Op Packet Safety Other Treatments Other Treatment Performed she need intermittent reminders for hip precautions during mobility, Her Spouse verbalizes a good understanding of her precautions M7 PT-IP Assessment and Plan Start: 10/03/17 11:48 Freq: NEEDED Status: Active Protocol: Document 10/03/17 14:55 DLM (Rec: 10/03/17 16:09 DL [id number]) PT Summary Assessment and Plan Summary Progress Towards Goals Safe For Discharge Assessment Summary She tolerated treatment well. She is fatigued from activities today but feels she can go home after a short rest break. She was able to get up a step which she uses to get up into her tall bed at home. Her Spouse is able to assist her as needed at home. She appears safe to discharge home with her Spouse to assist . Frequency of Treatment Frequency Of Treatment Discharge Recommendations To Nursing Amount of Assist Needed 1 Person Assist Discharge Recommendations PT Discharge Recommendations Home with Assistance Outpatient PT
--- NOTE | 2017-10-03 15:09 | PC.NURSE ---
Pt has worked with PT and OT and has been cleared for discharge home with Spouse. Pt received 1 Vicodin at 1430 for 6/10 pain to her right hip after working with P.T. and now is resting prior to leaving. Pt states her pain has decreased and is getting better by the moment. Reviewed d/c info with Pt and Spouse-discussed d/c meds, time of last dose, follow up, wound care, showering and following hip precautions. Both deny further questions and state that after resting for 20 minutes will be ready to be taken out via w/c to pov.
[2017-10-03 15:57] VITALS: BMI 24.0
== END 2017-10-03 16:20 | disposition home or self-care (01) | DRG 470 ==
PROVIDERS: Admitting Provider Orthopaedic Surgery; Family Provider Family Medicine; PCP Family Medicine; Visit Provider Orthopaedic Surgery
PROC: 0SR90JZ Replacement of Right Hip Joint with Synthetic Substitute, Open Approach (ICD-10-PCS; CPT 27130; principal; 2017-10-02 14:30)
DX: M16.11 Unilateral primary osteoarthritis, right hip (principal); J45.909 Unspecified asthma, uncomplicated; M70.61 Trochanteric bursitis, right hip; K21.9 Gastro-esophageal reflux disease without esophagitis; E03.9 Hypothyroidism, unspecified; R11.0 Nausea
CPT/HCPCS: 36415; 72170; 85014; 85018; 94760; 94762; 97110; 97116; 97162; 97165; 97530; 97535; C1776; J0690; J1100; J1650; J2250; J2274; J2405; J2704; J2765; J3010

== ENCOUNTER → 2018-03-12 09:41 | Outpatient (CLI) | payer MEDICARE, SELFPAY ==
[2017-10-02 17:19] VITALS: BMI 24.1
== END ==
PROVIDERS: PCP Family Medicine; Visit Provider Family Medicine
DX: M81.0 Age-related osteoporosis without current pathological fracture (principal); Z78.0 Asymptomatic menopausal state; E07.9 Disorder of thyroid, unspecified
CPT/HCPCS: 77080

== ENCOUNTER → 2018-04-25 08:55 | Outpatient (CLI) | payer MEDICARE, SELFPAY ==
[2017-10-02 17:19] VITALS: BMI 24.1
--- NOTE | 2018-04-25 | DI.RAD.S_ITS ---
PROCEDURE: XR SACROILIAC JOINT MIN 3V INDICATIONS: SI JOINT PAIN TECHNIQUE: 3 views of the sacroiliac joints were acquired. COMPARISON: None. FINDINGS: Bones: No bony erosions or ankylosis. No suspicious bony lesions. No fractures. Right hip arthroplasty. Lower lumbar spondylosis. Mild left hip joint degeneration. Soft tissues: Overlying bowel gas pattern is normal. No suspicious soft tissue densities. IMPRESSION: No radiographic evidence for ankylosis or erosions. Cross-sectional imaging evaluation with MRI could be performed as clinically warranted. Dictated by: Jv Merida M.D. on 04/25/2018 at 11:15 Approved by: Jv Merida M.D. on 04/25/2018 at 11:16
== END ==
PROVIDERS: PCP Family Medicine; Visit Provider Family Medicine
DX: M53.3 Sacrococcygeal disorders, not elsewhere classified (principal); M16.12 Unilateral primary osteoarthritis, left hip; Z96.641 Presence of right artificial hip joint
CPT/HCPCS: 72202

== ENCOUNTER → 2018-06-02 09:51 | Outpatient (CLI) | payer MEDICARE, SELFPAY ==
[2017-10-02 17:19] VITALS: BMI 24.1
--- NOTE | 2018-06-02 | DI.MG.S_ITS ---
BILATERAL DIGITAL SCREENING MAMMOGRAM 3D/2D WITH CAD: 06/02/2018 CLINICAL: Routine screening. Family history of breast cancer. Comparison is made to exams dated: 05/25/2016 mammogram, 03/09/2015 mammogram, and 02/17/2014 mammogram - [facility]. There are scattered fibroglandular elements in both breasts. Current study was also evaluated with a Computer Aided Detection (CAD) system. There are benign calcifications in both breasts. No significant masses, calcifications, or other findings are seen in either breast. There has been no significant interval change. IMPRESSION: There is no mammographic evidence of malignancy. A 1 year screening mammogram is recommended. This exam was interpreted at Station ID: [id number]. NOTE: For mammograms, a report in lay terms will be sent to the patient. Approximately 15% of breast malignancies will not be visualized mammographically. In the management of a palpable breast mass, a negative mammogram must not discourage biopsy of a clinically suspicious lesion. Electronically Signed By: Dandre cloud/rommel:06/04/2018 07:15:45 letter sent: Normal Exam ACR BI-RADS Category 2: Benign Finding(s) [id number]
== END ==
PROVIDERS: PCP Family Medicine; Visit Provider Family Medicine
DX: Z12.31 Encounter for screening mammogram for malignant neoplasm of breast (principal); Z80.3 Family history of malignant neoplasm of breast
CPT/HCPCS: 77063; 77067

== ENCOUNTER → 2018-08-29 13:55 | Outpatient (CLI) | payer MEDICARE, SELFPAY ==
[2017-10-02 17:19] VITALS: BMI 24.1
--- NOTE | 2018-08-29 | DI.MRI.S_ITS ---
PROCEDURE: MR HIP LT WO CON INDICATIONS: Unilateral primary osteoarthritis, left hip TECHNIQUE: Noncontrast coronal T1 spin echo and STIR through the bony pelvis. Coronal and axial T2 fast spin echo with fat saturation, sagittal T1 spin echo, and oblique axial T2 fast spin echo with fat saturation through the hip. COMPARISON: [facility] [place], CR, XR PELVIS WITH BILATERAL HIPS 5 VIEWS, 06/12/2018, 13:48. FINDINGS: Image quality: Diagnostic. Bones and joints: No acute fracture, dislocation, or suspicious osseous lesion is evident involving the left hip. No evidence of avascular necrosis is identified. There are moderate to severe degenerative changes of the left hip with prominent joint space narrowing, developing marginal osteophytes, and extensive irregularity of the hyaline articular cartilage. There is a moderate-sized hip effusion. Areas of reactive marrow change are noted along the anterior margin of the acetabulum. The alpha angle of the right femoral head measures approximately 60?. The remainder of the image osseous structures of the pelvis demonstrate no acute fractures or suspicious osseous lesions. However, the right hip and right aspect of the pelvis are not well evaluated related to previous right hip arthroplasty. There are degenerative changes of the lower lumbar spine and pubis symphysis and sacroiliac joints, which are not well characterized. Labrum: Evaluation of the acetabular labrum is difficult without intra-articular contrast. However, there is extensive irregularity and increased signal identified throughout the entire superior margin of the labrum extending from at least the 10 o'clock position to the 2 o'clock position. Additional posterior labral tearing is likely present. There are small to moderate sized posterosuperior para labral cysts. Tendons and ligaments: The distal left gluteus medius and gluteus minimus tendons are within normal limits. The proximal hamstrings tendons are also within normal limits. The distal iliopsoas tendons are intact and unremarkable. The ligamentum teres appears intact where visualized. Soft tissues: Visualized muscles demonstrate normal bulk and internal signal. Quadratus femoris muscle demonstrates no internal edema to suggest ischiofemoral impingement. The proximal sciatic neurovascular bundle appears normal adjacent to the hamstring tendons. No free pelvic fluid. Bladder wall thickness is normal. Genitourinary structures and bowel loops appear normal where visualized. IMPRESSION: 1. Moderate to severe degenerative changes of the left hip. No fractures. 2. Moderate-sized left hip effusion. 3. Irregular tearing of the superior left acetabular labrum is likely degenerative or chronic. 4. At least moderate degenerative changes of the lumbosacral spine and pubis symphysis. Dictated by: Niko Woo M.D. on 08/29/2018 at 16:29 Approved by: Niko Woo M.D. on 08/29/2018 at 16:34
== END ==
PROVIDERS: PCP Family Medicine; Visit Provider Orthopaedic Surgery
DX: M16.12 Unilateral primary osteoarthritis, left hip (principal); M25.452 Effusion, left hip; S73.192A Other sprain of left hip, initial encounter; M47.817 Spondylosis without myelopathy or radiculopathy, lumbosacral region
CPT/HCPCS: 73721

== ENCOUNTER → 2018-11-21 11:17 | Outpatient (CLI) | payer MEDICARE, SELFPAY ==
[2017-10-02 17:19] VITALS: BMI 24.1
--- NOTE | 2018-11-21 | DI.RAD.S_ITS ---
PROCEDURE: XR CHEST 2V INDICATIONS: COUGH TECHNIQUE: 2 views of the chest were acquired. COMPARISON: [facility], CHEST 2 VIEW, 06/30/2006, 14:50. [facility], CHEST 2 VIEW, 06/06/2016, 11:49. FINDINGS: Surgical changes and devices: None. Lungs and pleura: Faint opacity along the lower left lung zone remains unchanged since 06/30/2006 study. Lungs are otherwise clear without focal consolidation. No pleural effusions or pneumothorax. Mediastinum: Mediastinal contours are normal. Heart size is normal. Bones and chest wall: No suspicious bony abnormalities. Soft tissues appear unremarkable. IMPRESSION: Stable examination of the chest without acute cardiopulmonary abnormalities. Dictated by: Dandre Ledezma M.D. on 11/21/2018 at 13:23 Approved by: Dandre Ledezma M.D. on 11/21/2018 at 13:25
== END ==
PROVIDERS: PCP Family Medicine; Visit Provider Family Medicine
DX: R05 Cough (principal)
CPT/HCPCS: 71046

== ENCOUNTER → 2019-02-05 11:04 | Outpatient (CLI) | payer MEDICARE, SELFPAY ==
[2017-10-02 17:19] VITALS: BMI 24.1
[2019-02-05 12:09] LABS: Add Manual Diff / Slide Review NO; Basophils Absolute Auto 0 /uL (0-100); Basophils Percent Auto 0.7 % (0-2); Eosinophils Absolute Auto 100 /uL (0-450); Eosinophils Percent Auto 1.7 % (2-4); Hematocrit 41.6 % (36-46); Hemoglobin 14.1 g/dL (12.0-16.0); Lymphocytes Absolute Auto 1700 /uL (1100-4500); Lymphocytes Percent Auto 28.1 % (25-40); Mean Corpuscular Hemoglobin 30.1 PG (26-34); Mean Corpuscular Volume 88.6 fL (80-100); Monocytes Absolute Auto 600 /uL (0-900); Monocytes Percent Auto 10.2 % (3-14); Neutrophils Absolute Auto 3600 /uL (1500-7000); Neutrophils Percent Auto 59.3 % (50-75); Platelet Count 381 X10^3/uL (150-400); Red Cell Distribution Width 13.7 % (11.6-14.8)
[2019-02-05 12:32] LABS: Carbon Dioxide 27 mmol/L (22-32); Chloride 104 mmol/L (98-107); HEMOLYSIS < 15 (0-50); Sodium 142 mmol/L (137-145)
[2019-02-05 12:33] LABS: Potassium 5.5 mmol/L (3.4-5.1)
== END ==
PROVIDERS: PCP Family Medicine; Visit Provider Orthopaedic Surgery
DX: Z01.818 Encounter for other preprocedural examination (principal); Z01.812 Encounter for preprocedural laboratory examination
CPT/HCPCS: 36415; 80051; 85025; 93005; 93010

== ENCOUNTER 2019-02-11 06:00 | Inpatient (IN) | payer MEDICARE, SELFPAY ==
[2017-10-02 17:19] VITALS: BMI 24.1
[2019-02-05 09:45] VITALS: BMI 24.1
[2019-02-11] VITALS (14 sets, daily range): BP systolic 111–156; BP diastolic 57–94; PULSE 67–112; RESP 12–28; TEMP 36.3–37.2; O2SAT 93–100; BMI 23.5
--- NOTE | 2019-02-11 06:00 | DI.RAD.S_ITS ---
PROCEDURE: XR PELVIS 1-2V INDICATIONS: post op TECHNIQUE: Intra-operative view of the pelvis and hip acquired. COMPARISON: [facility] [place], CR, XR PELVIS WITH LATERAL HIP LEFT, 02/07/2019, 16:10. [facility] [place], CR, XR PELVIS WITH BILATERAL HIPS 5 VIEWS, 06/12/2018, 13:48. [facility], CR, XR PELVIS 1-2V, 10/02/2017, 15:45. FINDINGS: Bones: Intraoperative devices prior to placement of left arthroplasty prostheses are in expected positions. No fractures or suspicious bony lesions. Prior right hip arthroplasty. Soft tissues: Overlying surgical retractors are present, along with other intraoperative changes. IMPRESSION: Left hip prosthesis in anatomic alignment. Dictated by: Joseluis Carlson M.D. on 02/11/2019 at 9:57 Approved by: Joseluis Carlson M.D. on 02/11/2019 at 9:58
[2019-02-11] MEDS: ACETAMINOPHEN 325 MG TABLET 975 MG PO (07:04)
[2019-02-11] MEDS: PREGABALIN 75 MG CAPSULE PO (07:05)
[2019-02-11] MEDS: LACTATED RINGERS 1,000 ML 42 ML IV (07:18)
--- NOTE | 2019-02-11 07:46 | PM.PREOP ---
Pre-operative Note Interval Note History & Physical reviewed/Exam performed by Physician: Yes Changes to H&P: No
[2019-02-11] MEDS: CEFAZOLIN 2 GM/100 ML FROZ.PIGGY IV ×2 (07:50→16:56)
[2019-02-11] MEDS: TRANEXAMIC ACID 1,000 MG VIAL 1000 MG INJ ×2 (08:22→09:05)
--- NOTE | 2019-02-11 08:29 | SUR.OPER ---
Lateral on padded OR bed. Pillow to head. Gel axillary roll. Arms secured on padded armboard with pillow supporting top arm. Padded hip positioner braces x4 - anterior and posterior chest and pelvis. Additional gel pad used anterior pelvis. Gel pad under bottom leg from knee to foot and secured with tape over sheet.
[2019-02-11] MEDS: ROPIVACAINE 0.5% PF 5 MG/ML 20ML VIAL 60 ML INJ (08:42)
[2019-02-11] MEDS: MORPHINE 4 MG/ML INJ INJ (08:44)
[2019-02-11] MEDS: KETOROLAC 30 MG/ML VIAL IV (08:45)
--- NOTE | 2019-02-11 09:45 | P.OP_ITS ---
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 The patient has pain with activities and at rest, limited ambulation and activity tolerance, difficulties with ADLs, and failure of conservative treatment. We have discussed the nature of condition, treatment options, risks and benefits, and patient elects to proceed with total hip arthroplasty and gives informed consent. Surgeon: Lalo Mccray Crm Coordinator: José Miguel Fernandez Anesthesia Type: General and Spinal Operative Notes Closure Type: primary Specimen(s): none sent Prosthetic devices, grafts, tissues, transplants, or devices: Acetabulum: Koehler [employer] Nephew R3 acetabular component size 48 mm Femoral component: Koehler [employer] Nephew Anthology stem size 6 with high offset Femoral head: 32 mm + 4 cobalt chrome Estimated Blood Loss (mL): 150 Procedure in detail: After satisfactory induction of anesthetic, and administration of IV antibiotics, the patient was positioned in the lateral decubitus position with all bony prominences well padded and pelvic position secured using a hip advertising internship positioning device. Left hip and lower extremity prepped and draped in the usual sterile fashion, 1st dose of intravenous tr anexamic acid was administered, then a longitudinal incision was created centered over the greater trochanter and carried sharply through the skin and subcutaneous tissues down to the fascia desiree which was divided longitudinally and retracted with a Charnley retractor. External rotators visualize, cut, tagged, and retracted posteriorly, then the capsule was cut in a T-type fashion with the corners tagged and retracted. Hip was dislocated and femoral neck cut made according to preoperative templating. Acetabular retractors then placed, and the acetabular labrum and osteophytes were excised. The acetabulum was then sequentially reamed to 47 mm with an excellent circumferential ream and fit with the trial. The trial component was removed and a permanent size 48 mm Koehler and Nephew R3 acetabular component was selected, positioned, and impacted with satisfactory position and fixation achieved. Permanent liner was then inserted with the elevated lip directed posteriorly. Soft tissue then removed off the lateral femoral neck in the lateral neck was entered using a box osteotome. T- handled reamers placed down the canal followed by sequential broaching to 6 with the final broach left in place for trial reduction which demonstrated excellent leg length, range of motion, and stability characteristics with a 32 mm +4 trial ball, but another trial reduction with a high offset neck yielded marked improved stability in flexion and internal rotation. The trial and broach were removed, and a permanent size 6 high offset Koehler [employer] Nephew Anthology stem was selected and inserted with excellent position and fixation achieved. Another trial reduction yielded the above characteristics so the trial ball was exchanged for a permanent 32 mm +4 cobalt chrome ball. The hip was irrigated and reduced and excellent leg length range of motion and stability characteristics were achieved and maintained. Periarticular tissues were infiltrated with ropivacaine, morphine, and Toradol. The hip was copiously irrigated, and the capsule repaired with #2 Ethibond, and the piriformis was repaired back to the greater trochanter with the same. Fascia desiree closed with interrupted #1 Ethibond sutures, and the subcutaneous tissues were closed in 2 layers of 0 Vicryl and 2 0 Vicryl. Skin was closed with nathaniel and sterile dressings applied. Second dose of tranexamic acid was administered intravenously, and the anesthetic was terminated. Complications: none Post-operative Condition: stable Disposition: PACU Plan for aftercare: Patient will be admitted to the acute care [facility], and anticipate discharge on postop day 1 with follow-up in office in 10-14 days. Outpatient physical therapy will be arranged and patient will continue to observe posterior hip precautions. Patient will continue use of postoperative Lovenox for 10 days postop.
--- NOTE | 2019-02-11 09:55 | SUR.PHASEI ---
HAND OFF OF CARE TO LEATHA FLANNERY,
[2019-02-11] MEDS: LACTATED RINGERS 1,000 ML 125 ML IV (12:19)
--- NOTE | 2019-02-11 13:06 | PC.NURSE ---
Addendum entered by Marta Thompson R.N. 02/11/19 14:32: PAIN - visiting w/friends and family at bedside, denies discomfort at this time I'm still numb. Original Note: POST OP ARRIVAL 955 - pt is awake, able answer questions, barrier dsg l hip cdi, denies discomfort now, can move her r leg on command, unable to move lle or wiggle toes, no sensation l foot, alicia scd on, pillow between thighs, ra 98%.
[2019-02-11] MEDS: HYDROCODONE/ACET 5/325 TABLET 1 TAB PO (15:05)
[2019-02-11] MEDS: hydrOXYzine pamoate 25 MG CAPSULE PO (16:56)
[2019-02-11] MEDS: ACETAMINOPHEN 325 MG TABLET 650 MG PO (16:56)
--- NOTE | 2019-02-11 17:50 | PT.IIE ---
Current Diagnoses Unilateral primary osteoarthritis, left hip (02/11/19) Surgery Performed Operation Date: 02/11/19 07:45 Actual Procedures p Total Hip Arthroplasty(Left) - Lalo Mccray MD Surgical History (Last Updated 02/05/19 @ 09:46 by Coco Norris RN) History of total right hip arthroplasty (Acute 10/02/17) Hx of Achilles tendon repair (Acute) Hx of tonsillectomy (Acute) Status post cataract extraction of both eyes with insertion of intraocular lens (Acute) Medical History (Last Updated 02/05/19 @ 10:01 by Coco Norris RN) Asthma (Acute) Elevated cholesterol (Acute) GERD (gastroesophageal reflux disease) (Acute) Glaucoma (Acute) Hearing loss (Acute) Hypothyroidism (Acute) Melanoma (Acute) Physical Therapy Inpatient Evaluation/Re-Eval M1 PT/OT-IP Prior Functional Status Start: 02/11/19 13:18 Freq: NEEDED Status: Active Protocol: Document 02/11/19 17:31 AW (Rec: 02/11/19 17:50 AW [id number]) Medical Review Prior Functional Status Medical History Reviewed Yes Diet/Fluid Consistency Regular Communication WNL Mobility and Gait Pt was independent for all functional mobility, no need for assistive device, but with a limit of about 1/2 block due to pain Activities of Daily Living and IADL's Pt required assist with lower body dressing and showering. Her spouse helped her. She was independent with toileting Social History Household Members spouse Living Arrangements House Number of Floors (Floors) One Floor Number of Stairs To Enter/Railing? Level entry through garage. Home Environment Standard Height Toilet,Walk in Shower Home Equipment Front Wheel Walker,Straight Cane,Raised Toilet Seat w/ Armrests,Shower Seat without Backrest,Hand Held Shower Additional Social History Comment Pt lives with her spouse who is able and available to assist 19/09. Their bed is tall with a platform step. M2 PT-IP Current Condition Start: 02/11/19 13:18 Freq: NEEDED Status: Active Protocol: Document 02/11/19 17:31 AW (Rec: 02/11/19 17:50 AW [id number]) Physical Therapy Current Condition Current Condition Evaluation Date 02/11/19 Treatment Diagnosis s/p L PAKO, difficulty in walking Onset Date 02/11/19 Precautions Posterior Hip Precautions No Hip Flexion > 90 degrees,No Hip Internal Rotation,No Hip Adduction Weight Bearing Status Weight Bearing Status Weight Bear as Tolerated M3 PT-IP Subjective Start: 02/11/19 13:18 Freq: NEEDED Status: Active Protocol: Document 02/11/19 17:31 AW (Rec: 02/11/19 17:50 AW [id number]) Subjective Physical Therapy Visit Type Type Initial Evaluation Visit Start Time 16:49 Visit Stop Time 17:30 Total Visit Minutes 41 Notes Pt's spouse, Osmin, and granddaughter, Cammy, present during evaluation. Number of MAGNETIZER Visits 0 Physical Therapy Visit Comments Patient Comments Pt is willing to work with PT Patient Goals To go home with spouse assist Therapy Pain Assessment Pain When Pain Assessed During Mobility Pain Present Pain Present Pain Reported Location Left Hip Intensity 4 Scale Used 3/10 at rest; 4/10 with mobility Pain Behaviors Facial Grimacing,Moaning, Wincing Pain Management Techniques Apply Cold,Re-positioning, Timing of Activity with Medications M4 PT-IP Mobility and Gait Start: 02/11/19 13:18 Freq: NEEDED Status: Active Protocol: Document 02/11/19 17:31 AW (Rec: 02/11/19 17:50 AW [id number]) PT-Bed Mobility Assessment Supine to Sit Supine to Sit Minimal Assistance,2 Person Assistance,Bedrails Sit to Supine Sit to Supine Minimal Assistance,1 Person Assistance Scooting Scooting to Edge of Bed Standby Assistance Scooting Up and Down in Bed Standby Assistance PT-Transfer Assessment Sit to and From Stand Sit to and from Stand Minimal Assistance,1 Person Assistance,Use of Upper Extremities Equipment Transfer Assistive Device Gait Belt,Front Wheeled Walker Orthotic/Prosthetic Devices or Brace: No Transfers Transfer Destination Bed Transfer Technique pt ambulated with FWW Transfer Ability Level of Assist Minimal Assistance,1 Person Assistance,Use of Upper Extremities Comments Mobility Comments Pt was able to actively abduct the left leg to exit the bed to the left. On first attempt to sit upright, pt experienced sharp pain in her left hip and needed a minute to recover . PT called nursing and CANE PUSHER assisted from behind as PT offered min assist via hand hold for pt to right herself. Once seated, pt was able to support herself with UE's and scoot toward EOB SBA. She stood with FWW min A x 1, denying nausea or lightheadedness. Pt ambulated ~15 feet in room FWW CGA to the other side of the bed where she required only minimal verbal cues for sequencing to sit EOB while maintaining posterior hip precautions. She transferred sit to supine with min assist to support her operative leg. Once in bed, she was able to bridge her hips and reposition herself in the center of the bed as well as to scoot herself higher in the bed SBA. Gait Assessment Gait Gait Assistance Required: Contact Guard Assist Distance (Feet) 15 Able to Maintain Weight Bearing Status Yes During Gait Assistive Devices Assistive Device Gait Belt,Front Wheeled Walker Orthotic/Prosthetic Devices or Brace: No Gait Deviations General Gait Pattern Antalgic,Decreased Stride Length,Decreased Feet Clearance,Flexed Trunk Factors Limiting Gait Function Factors Limiting Gait Function Decreased Activity Tolerance, Decreased Strength,Pain Comments Gait Comments Pt ambulated from one side of the bed to the other with FWW CGA. Her step lengths were only mildly asymmeytrical but foot clearance was definitely decreased. Stair Climbing Assessment Comments Stair Climbing Comments Not assessed. PT-Balance Assessment Sitting Balance and Reactions Static Sitting Balance Ability Good Dynamic Sitting Balance Ability Good Standing Balance and Reactions Static Standing Balance Ability Good Dynamic Standing Balance Ability Fair Device Used FWW M5 PT-IP Objective Assessments Start: 02/11/19 13:18 Freq: NEEDED Status: Active Protocol: Document 02/11/19 17:31 AW (Rec: 02/11/19 17:50 AW [id number]) Orientation Orientation/Cognition Level of Alertness Alert Orientation Name,Month,Place,Situation Language Function Ability No Deficits Noted Safety Awareness Understands Safety Issues Memory Description No Deficits Noted Comments Pt conversed easily. She expressed concern that she wasn't doing enough and noted she has a tendency to push past her limits. Pt was repositioned in the bed, SCD's on, call light and table within reach, bed alarm on for safety, and spouse, granddaughter in room visiting . Gross Range of Motion Upper Extremity ROM Assessment Within Functional Limits Lower Extremity ROM Assessment Left Impaired Strength Upper Extremity Strength Assessment Within Functional Limits Lower Extremity Strength Assessment Left Impaired Comments Strength Comments BUE grossly 5/5, RLE grossly 4 +/5 Sensation Assessment Sensation Gross Sensation WNL Comments Sensation Comments Pt reports good feeling throughout both LE's M6 PT-IP Treatment Start: 02/11/19 13:18 Freq: NEEDED Status: Active Protocol: Document 02/11/19 17:31 AW (Rec: 02/11/19 17:50 AW [id number]) Physical Therapy Treatment Exercises Exercises Ankle Pumps,Gluteal Sets,Quad Sets,Heel Slides Education Education Provided Precautions,Weight Bearing Status,Post-Op Packet,Safety Other Treatments Other Treatment Performed Reviewed PT plan of care, posterior hip precautions, weightbearing status, and safe use of FWW. Spouse was present and attentive to all education. M7 PT-IP Assessment and Plan Start: 02/11/19 13:18 Freq: NEEDED Status: Active Protocol: Document 02/11/19 17:31 AW (Rec: 02/11/19 17:50 AW [id number]) PT Summary Assessment and Plan Potential Rehabilitation Potential Excellent Status of Condition at Evaluation Evolving Summary Impairments Pain,ROM,Strength,Balance,Bed Mobility,Transfers,Gait, Activity Tolerance Assessment Summary Emi is a 73 yo woman with history of R PAKO last year. Prior to admission, pt was independent in all regards, though does admit ambulation limitation of about 1/2 block due to pain. She required assist with lower body dressing and showering which her provided. On evaluation, pt required mod A x 2 for supine to sit due to sharp left hip pain when attempting to sit unassisted. For all other mobilities, she required no more than min assist x 2. PT anticipates she will meet the functional goals of this plan of care and be safe to discharge home with spouse support and outpatient PT when medically cleared. Goals Bed Mobility Goal Standby Assistance Transfer Goal Standby Assistance,Front Wheeled Walker Gait Goal Standby Assistance,Front Wheel Walker Gait Distance 150 Other Goals up/down platform step using TOOL LIAISON for entry to tall bed at home Days to Meet Goals 2 Frequency of Treatment Frequency Of Treatment Twice a Day Treatment Plan Physical Therapy Treatment Plan Bed Mobility Training,Transfer Training,Gait Training, Therapeutic Exercise,Balance Retraining,Post Op Education, Discharge Planning,Hot or Cold Pack,Neuromuscular Re-ed, Coordination Retraining,Manual Therapy Other Recommendations and Next Treatment review ther ex and precautions Focus , gait training, trial platform step if able Recommendations To Nursing Amount of Assist Needed 1 Person Assist Discharge Recommendations PT Discharge Recommendations Home with Assistance, Outpatient PT
[2019-02-11] MEDS: HYDROCODONE/ACET 10/325 TABLET 1 TAB PO (21:05)
[2019-02-12] MEDS: CEFAZOLIN 2 GM/100 ML FROZ.PIGGY IV (00:55)
[2019-02-12] MEDS: LATANOPROST 0.005% OPHTH 2.5 ML 1 DROPS EYE-BOTH (00:56)
[2019-02-12] MEDS: LEVOTHYROXINE 50 MCG TABLET PO (05:33)
[2019-02-12] MEDS: PANTOPRAZOLE 40 MG TABLET PO (05:33)
[2019-02-12 06:07] VITALS: BP 141/77; PULSE 82; RESP 16; TEMP 36.7; O2SAT 98
[2019-02-12] MEDS: HYDROCODONE/ACET 10/325 TABLET 1 TAB PO ×2 (06:22→11:47)
[2019-02-12 06:47] LABS: Hematocrit 28.4 % (36-46); Hemoglobin 9.7 g/dL (12.0-16.0)
[2019-02-12 07:20] VITALS: BP 137/84; PULSE 83; RESP 16; TEMP 37.1; O2SAT 98
--- NOTE | 2019-02-12 08:39 | PT.IPTN ---
Current Diagnoses Unilateral primary osteoarthritis, left hip (02/11/19) Surgery Performed Operation Date: 02/11/19 07:45 Actual Procedures p Total Hip Arthroplasty(Left) - Lalo Mccray MD Physical Therapy Treatment Note M2 PT-IP Current Condition Start: 02/11/19 13:18 Freq: NEEDED Status: Active Protocol: Document 02/11/19 17:31 AW (Rec: 02/11/19 17:50 AW [id number]) Physical Therapy Current Condition Current Condition Evaluation Date 02/11/19 Treatment Diagnosis s/p L PAKO, difficulty in walking Onset Date 02/11/19 Precautions Posterior Hip Precautions No Hip Flexion > 90 degrees,No Hip Internal Rotation,No Hip Adduction Weight Bearing Status Weight Bearing Status Weight Bear as Tolerated M3 PT-IP Subjective Start: 02/11/19 13:18 Freq: NEEDED Status: Active Protocol: Document 02/12/19 08:39 CLB (Rec: 02/12/19 13:12 CLB [id number]) Subjective Physical Therapy Visit Type Type Treatment Note Visit Start Time 08:39 Visit Stop Time 09:29 Total Visit Minutes 50 Number of BUILDING MECHANIC Visits 1 Physical Therapy Visit Comments Patient Comments Pt is willing to work with PT Patient Goals To go home with spouse assist Therapy Pain Assessment Pain When Pain Assessed During Mobility Pain Present Pain Present Pain Reported Location Left Hip Intensity 4 Scale Used Numeric (1 - 10) Pain Behaviors Facial Grimacing,Moaning, Wincing Pain Management Techniques Apply Cold,Re-positioning, Timing of Activity with Medications M4 PT-IP Mobility and Gait Start: 02/11/19 13:18 Freq: NEEDED Status: Active Protocol: Document 02/12/19 08:39 CLB (Rec: 02/12/19 13:12 CLB [id number]) PT-Bed Mobility Assessment Supine to Sit Supine to Sit Standby Assistance Sit to Supine Sit to Supine Contact Guard Assistance Scooting Scooting to Edge of Bed Standby Assistance Scooting Up and Down in Bed Standby Assistance PT-Transfer Assessment Sit to and From Stand Sit to and from Stand Standby Assistance,Use of Upper Extremities Equipment Transfer Assistive Device Gait Belt,Front Wheeled Walker Orthotic/Prosthetic Devices or Brace: No Transfers Transfer Destination Bed,Chair,Toilet Transfer Ability Level of Assist Contact Guard Assistance,Use of Upper Extremities Comments Mobility Comments Pt required CGA of LLE while getting into bed and is able to abduct LLE OOB. Pt used stool with raised bed to get up onto bed due to pts bed at home is tall and she uses stool to get in to bed. Pt is SBA for sit-stand with cues for putting leg out in front before standing and sitting. Pt's is able to properly cue pt to follow posterior hip precautions. Pt able to stand at sink to wash hands SBA. Gait Assessment Gait Gait Assistance Required: Contact Guard Assist Distance (Feet) 800 Able to Maintain Weight Bearing Status Yes During Gait Assistive Devices Assistive Device Gait Belt,Front Wheeled Walker Gait Deviations General Gait Pattern Antalgic Factors Limiting Gait Function Factors Limiting Gait Function Decreased Strength,Pain Comments Gait Comments Pt able to walk ~400ft x2 in raygo[place]. Pt with good step length and foot clearance is SBA for gait with FWW. Pt has good safety awareness but did need cues to prevent hip IR during turns. M5 PT-IP Objective Assessments Start: 02/11/19 13:18 Freq: NEEDED Status: Active Protocol: Document 02/11/19 17:31 AW (Rec: 02/11/19 17:50 AW [id number]) Orientation Orientation/Cognition Level of Alertness Alert Orientation Name,Month,Place,Situation Language Function Ability No Deficits Noted Safety Awareness Understands Safety Issues Memory Description No Deficits Noted Comments Pt conversed easily. She expressed concern that she wasn't doing enough and noted she has a tendency to push past her limits. Pt was repositioned in the bed, SCD's on, call light and table within reach, bed alarm on for safety, and spouse, granddaughter in room visiting . Gross Range of Motion Upper Extremity ROM Assessment Within Functional Limits Lower Extremity ROM Assessment Left Impaired Strength Upper Extremity Strength Assessment Within Functional Limits Lower Extremity Strength Assessment Left Impaired Comments Strength Comments BUE grossly 5/5, RLE grossly 4 +/5 Sensation Assessment Sensation Gross Sensation WNL Comments Sensation Comments Pt reports good feeling throughout both LE's M6 PT-IP Treatment Start: 02/11/19 13:18 Freq: NEEDED Status: Active Protocol: Document 02/12/19 08:39 CLB (Rec: 02/12/19 13:12 CLB [id number]) Physical Therapy Treatment Exercises Exercises Gluteal Sets,Quad Sets,Heel Slides,Supine Hip Abduction Education Education Provided Precautions,Weight Bearing Status,Post-Op Packet,Safety Other Treatments Other Treatment Performed pt recalled 3/3 posterior hip precautions M7 PT-IP Assessment and Plan Start: 02/11/19 13:18 Freq: NEEDED Status: Active Protocol: Document 02/12/19 08:39 CLB (Rec: 02/12/19 13:12 CLB [id number]) PT Summary Assessment and Plan Summary Impairments Pain,ROM,Strength,Balance,Bed Mobility,Transfers,Gait, Activity Tolerance Progress Towards Goals Progressing Toward Goals Assessment Summary Pt is doing well with all mobility and is able to ambulate in ray[place]za ~400ft x2 SBA . Pt recalls 3/3 hip precautions and is able to cue pt during transfers for safety. Pt's is able to assist pt with CGA of LLE into bed and provide SBA for all mobility. Goals Bed Mobility Goal Standby Assistance Transfer Goal Standby Assistance,Front Wheeled Walker Gait Goal Standby Assistance,Front Wheel Walker Gait Distance 150 Other Goals up/down platform step using POSITION CLASSIFICATION SPECIALIST for entry to tall bed at home Days to Meet Goals 2 Frequency of Treatment Frequency Of Treatment Twice a Day Treatment Plan Physical Therapy Treatment Plan Bed Mobility Training,Transfer Training,Gait Training, Therapeutic Exercise,Balance Retraining,Post Op Education, Discharge Planning,Hot or Cold Pack,Neuromuscular Re-ed, Coordination Retraining,Manual Therapy Recommendations To Nursing Amount of Assist Needed 1 Person Assist Discharge Recommendations PT Discharge Recommendations Home with Assistance, Outpatient PT
[2019-02-12] MEDS: ENOXAPARIN 40 MG/0.4 ML SYRINGE SUBCUT (09:38)
--- NOTE | 2019-02-12 11:56 | CM.DANOTE ---
DCP/Assessment: Reviewed chart. Patient is a 73yr female admitted to [facility] with left PAKO performed on 02-11-19. PCP is Dr. Bello. Primary payor is 1)Medicare 2)[facility]. Met with patient and spouse at bedside explained CM/SW role. Patient up in recliner at time of visit. Patient plans to d/c home today. Patient has been seen by therpy and cleared to d/c home. Patient has all needed DME and supportive spouse. Patient has outpatient appointment with Orthopedics for outpatient therapy on 02-19-19. P: Home today. NANDO Wallace Discharge Planning/Care Management CM Discharge Assessment Start: 02/12/19 11:54 Freq: Status: Active Protocol: Document 02/12/19 11:54 KJS (Rec: 02/12/19 11:56 KJS [id number]) Discharge Planning Assessment Assigned Courtroom Deputy NANDO Wallace Contact Information Osmin Kennedy (spouse) [phone] Advance Directives? Yes: Dpoa for Health Care Advance Directives on File Yes History Provided By Patient,Family Member,Medical Record Prior Living Arrangements House Household Members spouse Type of transporation used prior to Drives own vehicle admit Independent with ADL's Yes Is patient alert and oriented? Yes Caregiver for Another No DME Already Rented / Owned FWW / Walker Comment pt with planned PAKO, OT and PT will see her today. She plans home with spouse supportive assist (he is at bedside and will be part of therapy training.) Patient/Family Preference OP PT Therapy Barriers to Discharge No Discharge Plan Home Transportation Arrangement spouse will drive her Additional Comment ortho has put a d/c order in but is reportedly pending how pt does today medically and with therapy Whiteboard Updated in Patient Room with Yes name and ext. # of Courtroom Deputy Review Status In Process Next Review Type Continued Stay Review Pre-Anesthesia Assessment Start: 02/05/19 09:44 Freq: Status: Complete Protocol: Document 02/05/19 09:45 CAB (Rec: 02/05/19 10:30 CAB [id number]) Pre-Anesthesia Assessment Patient Information Reviewed Via Phone Assessment Assessment Completed With Patient Comment Pt states she has not been given any pre-op orders Primary Care Provider Ford Bello Seen Specialist in Last 12 Months Yes Specialist Seen Orthopedist Primary Language Croatian Preferred Language Croatian Analytics Manager Required No Height 158.75 cm Weight 60.781 kg Body Mass Index (BMI) 24.1 Hearing Ability Hard of Hearing Visual Assist Magnifying Glass Dentition Type Teeth, Natural Present Barriers to Learning None Other Aids No Comment Right ear hearing loss Hx Anesthesia Reactions Yes: PONV Hx Family Anesthesia Reaction Yes: Sister has extreme PONV Hx Malignant Hyperthermia No Hx Blood Transfusions No Hx Blood Transfusion Reaction No Anesthesia Review Requested No Glass Calibrator No alcohol intake current alcohol intake frequency a few times a week Smoking Status Former smoker Tobacco type cigarettes how long ago did patient quit smoking Quit 1973 Substance Use Type does not use Pain Present Pain Reported Musculoskeletal Symptoms Abnormal Gait,Difficulty Walking,Joint Pain,Muscle Weakness History of Falling (Recent or History of No ) Patient is completely paralyzed or No completely immobile Mental Status Oriented to own ability Is patient on oxygen? No Does patient have MARTELL/SOB Yes: I'd get a little short of breath r/t Asthma Hx Sleep Apnea No CPAP/BIPAP use not prescribed Currently Taking a Beta Rogelio No Can You Climb a Flight of Stairs Without No: I'd get a little short of SOB breath r/t Asthma Hx Chest Pain No Hx SOB Yes: I'd get a little short of breath r/t Asthma Hx Syncope or Dizziness No Anti-Coagulant Therapy No Has a Field Crop Harvest Worker No Cardiac Testing No Hx Pacemaker/ICD No Pacemaker Rep Required? No Cardiac Clearance Received Not Applicable Diet Type At Home Regular dysphagia No Urinary Catheter Present No Hx Urinary Self Catheterization No Diabetes No Patient No Lactating No Hx Drug Resistant Organism No Presence of External or Internal Medical Yes: Right hip prosthesis Devices Have you traveled outside the [facility] in the last 30 days? Marital Status Lives With spouse Prior Living Arrangements House Number of Floors (Floors) One Floor Number of Stairs To Enter/Railing? No stairs Support System Caty/God,Friend(s),Sibling(s) ,Spouse Patient Discharge Plan Description Return Home Comment Pt not advised on length of stay surgeon Feels Safe in Current Environment Yes Been Physically Hurt or Threatened By a No Person in Current Environment Do you have thoughts of harming yourself None or others? Are you currently considering suicide? No Do you have a plan to hurt yourself or No Plan others? Do You Have Any Spiritual Beliefs That No May Affect Your HC Choices? Do You Have Any Cultural Practices That No May Affect Your HC Choices? Spiritual Referral None Comment Mormon Who Can We Speak to About Patient's Care Family, friends Identifying Code for Release of Patient Declines to issue Information Health Care Proxy/Next of Kin Osmin () Health Care Proxy Phone Number Home: cell: Emergency Contact Name Osmin () Hannah ( sister) Emergency Contact Phone Number Osmin: Home: cell: [phone] Hannah: Advance Directives? Yes: Dpoa for Health Care Advance Directives on File Yes Power of Property Utilization Officer Yes Power of Property Utilization Officer Name Osmin () Power of Property Utilization Officer Phone Number Home: cell: PAC Instructions Do not shave/clip surgical site,Durable medical equipment ,Medications to take/avoid, Nasal antibiotic,No ETOH/ petroleum product on skin DOS, NPO,Pre-surgical wash,Sturdy shoes/comfortable clothes,Do not bring valuables and remove jewelry
--- NOTE | 2019-02-12 11:57 | PC.NURSE ---
Addendum entered by Marta Thompson R.N. 02/12/19 14:54: MS/INTEG/DC - at lunch, given norco 10/325mg tab for l hip discomfort 7 on scale 0/10, after meal, pt assisted into shower by detector car operator, removed bulky barrier dsg, nathaniel intact w/o redness or drainage, replaced with coversite dsgs, discussed care w/spouse, pt, assisted with clothing, reviewed the dc instructions w/pt, spouse, belongings gathered, including own fww, martin, clothing, shoes, no cell phone here, tsf to and escorted to spouse's car by detector car operator. Original Note: AM NOTE - pt is alert, states no longer has any numbness l foot, wiggles toes on command, wearing scd, barrier dsg cdi, pain 4 on scale 0/10 after earlier norco 10mg tab, denies nausea and myles gen diet, later am phys therapy and ambul w/fww in hallway, pain managed, states feels better after she was up and mobilizing, ret to chair, spouse at bedside and demonstrated correct admin lovenox injection, given scripts to take to [facility] to fill. Plan to shower after lunch and then dc home.
--- NOTE | 2019-02-12 12:42 | P.PN_ITS ---
Subjective Subjective Date Patient Seen: 02/12/19 Time Patient Seen: 07:19 Interval history: Postop day 1 status post total hip arthroplasty with Dr. Mccray. Her pain was well-controlled last night with [place]. She has had a total hip arthroplasty previously and is aware of her precautions, and Lovenox for VTE prophylaxis. She has not been up with physical therapy at this morning. Exam Vital Signs (past 8 hours): - 02/12/19 06:07 02/12/19 07:20 Temperature 98.0 F 98.7 F Pulse Rate 82 83 Respiratory Rate 16 16 Blood Pressure 141/77 H 137/84 Pulse Oximetry 98 98 Oxygen Delivery Method Room Air Oxygen Flow Rate 0 Narrative Exam Narrative: Patient lying in bed in no acute distress. She is alert orient x3. Calves are soft, compressible, nontender bilaterally. SCDs on and functioning. Lovenox this morning for VTE prophylaxis. She is able to actively dorsiflex and plantar flex. Pulses are symmetrical. Objective Labs Result Diagrams: 02/12/19 06:18 Labs: Laboratory Results - last 24 hr 02/12/19 06:18 Hgb 9.7 L Hct 28.4 L Assessment & Plan Post-op Postoperative Procedures: Procedures Operation Date: 02/11/19 07:45 Actual Procedures Side Surgeon p Total Hip Arthroplasty Left Lalo Mccray MD Patient progressing well. They will mobilize with physical therapy today. Patient aware of hip precautions. Patient will have Lovenox for VTE prophylaxis for 10 days. Continue current pain control. If patient mobilizing safely, and pain adequately controlled they can go home today.
[2019-02-12 13:00] VITALS: BP 143/86; PULSE 82; RESP 17; TEMP 36.5; O2SAT 98
== END 2019-02-12 14:20 | disposition home or self-care (01) | DRG 470 ==
PROVIDERS: Admitting Provider Orthopaedic Surgery; PCP Family Medicine; Visit Provider Orthopaedic Surgery
PROC: 0SRB0JZ Replacement of Left Hip Joint with Synthetic Substitute, Open Approach (ICD-10-PCS; CPT 27130; principal; 2019-02-11 07:45)
DX: M16.12 Unilateral primary osteoarthritis, left hip (principal); Z96.641 Presence of right artificial hip joint; J45.909 Unspecified asthma, uncomplicated; E03.9 Hypothyroidism, unspecified; Z87.891 Personal history of nicotine dependence
CPT/HCPCS: 36415; 72170; 85014; 85018; 97110; 97116; 97161; 97530; C1776; J0690; J1100; J1650; J1885; J2250; J2270; J2405; J2704; J3010

== ENCOUNTER → 2019-11-21 12:23 | Outpatient (CLI) | payer MEDICARE, SELFPAY ==
[2019-02-11 10:03] VITALS: BMI 23.5
--- NOTE | 2019-11-21 | DI.MG.S_ITS ---
BILATERAL DIGITAL SCREENING MAMMOGRAM 3D/2D WITH CAD: 11/21/2019 CLINICAL: Routine screening. Family history of breast cancer. Comparison is made to exams dated: 06/02/2018 mammogram, 05/25/2016 mammogram, and 03/09/2015 mammogram - [facility]. There are scattered fibroglandular elements in both breasts. Current study was also evaluated with a Computer Aided Detection (CAD) system. There are benign calcifications in both breasts. No significant masses, calcifications, or other findings are seen in either breast. There has been no significant interval change. IMPRESSION: BENIGN There is no mammographic evidence of malignancy. A 1 year screening mammogram is recommended. This exam was interpreted at Station ID: [id number]. NOTE: For mammograms, a report in lay terms will be sent to the patient. Approximately 15% of breast malignancies will not be visualized mammographically. In the management of a palpable breast mass, a negative mammogram must not discourage biopsy of a clinically suspicious lesion. Electronically Signed By: Sreekanth dobbs/rommel:11/21/2019 13:50:07 letter sent: Normal Exam ACR BI-RADS Category 2: Benign Finding(s) 3342F
== END ==
PROVIDERS: PCP Family Medicine; Referring Provider Family Medicine; Visit Provider Family Medicine
DX: Z12.31 Encounter for screening mammogram for malignant neoplasm of breast (principal); Z80.3 Family history of malignant neoplasm of breast
CPT/HCPCS: 77063; 77067

== ENCOUNTER → 2020-04-16 10:07 | Outpatient (CLI) | payer MEDICARE, SELFPAY ==
[2019-02-11 10:03] VITALS: BMI 23.5
== END ==
PROVIDERS: PCP Family Medicine; Referring Provider Family Medicine; Visit Provider Family Medicine
DX: M85.832 Other specified disorders of bone density and structure, left forearm (principal); Z78.0 Asymptomatic menopausal state; E07.9 Disorder of thyroid, unspecified; Z82.62 Family history of osteoporosis
CPT/HCPCS: 77081

== ENCOUNTER → 2020-06-16 10:16 | Outpatient (CLI) | payer MEDICARE, SELFPAY ==
[2019-02-11 10:03] VITALS: BMI 23.5
--- NOTE | 2020-06-16 | DI.RAD.S_ITS ---
PROCEDURE: XR CHEST 2V INDICATIONS: COUGH TECHNIQUE: 2 views of the chest were acquired. COMPARISON: [facility], , XR CHEST 2V, 11/21/2018, 11:31. [facility], , CHEST 2 VIEW, 06/06/2016, 11:49. FINDINGS: Surgical changes and devices: None. Lungs and pleura: Lungs are clear. No pleural effusions or pneumothorax. Mediastinum: Mediastinal contours are normal. Heart size is normal. Bones and chest wall: No suspicious bony abnormalities. Soft tissues appear unremarkable. IMPRESSION: Normal for age, source of current cough symptoms is not seen. Dictated by: Toan Quinones M.D. on 06/16/2020 at 10:45 Approved by: Toan Quinones M.D. on 06/16/2020 at 10:45
== END ==
PROVIDERS: PCP Family Medicine; Referring Provider Family Medicine; Visit Provider Family Medicine
DX: R05 Cough (principal)
CPT/HCPCS: 71046

== ENCOUNTER → 2020-09-17 08:45 | Outpatient (CLI) | payer MEDICARE, SELFPAY ==
[2019-02-11 10:03] VITALS: BMI 23.5
[2020-09-17 10:32] LABS: COVID19 -Nasal RAPID Negative (Negative)
== END ==
PROVIDERS: PCP Family Medicine; Referring Provider Specialist; Visit Provider Specialist
DX: Z20.822 Contact with and (suspected) exposure to COVID-19 (principal)
CPT/HCPCS: 87635; C9803

== ENCOUNTER 2020-09-18 08:59 | Day surgery (SDC) | payer MEDICARE, SELFPAY ==
[2019-02-11 10:03] VITALS: BMI 23.5
--- NOTE | 2020-09-18 | PATH_ITS ---
[facility] Accession Number: [id number] . 01 Material submitted: . gastrointestinal site - GASTRIC POLYPS . 02 Diagnosis: Gastric Polyps, Biopsies: Fundic gland polyps. No evidence of Helicobacter organisms on H/E stain. Negative for intestinal metaplasia. Negative for dysplasia and malignancy. [facility] 09/23/2020 1520 Local . 02 Electronically signed: . Freddie Ornelas MD, PhD, Pathologist NPI- [id number] . 01 Gross description: . GASTRIC POLYPS: Received in formalin are multiple fragment(s) of schmitt, soft tissue measuring 1.8 x 0.3 x 0.2 cm in aggregate submitted entirely in 1 cassette(s) /RADHA 09/19/2020 0452 Local . 02 Pathologist provided ICD-10: K31.7 . 02 CPT . 451667 Performed at: 01 [facility] [address], [place], [place] [id number] MD Sreekanth Man MD Phone: [phone] Performed at: [address] [facility] [address] [place], [place] [id number] MD Lulu Stewart MD Phone: [phone]
[2020-09-18] MEDS: LACTATED RINGERS 1,000 ML 100 ML IV (10:04)
[2020-09-18 10:05] VITALS: BP 156/76; PULSE 72; RESP 16; TEMP 36.6; O2SAT 98; BMI 25.3
--- NOTE | 2020-09-18 11:06 | PM.PREOP ---
Pre-operative Note COVID-19 COVID-19 status: Negative Result date/Date tested (Pos, Neg/Pending): 09/18/20 Interval Note History & Physical reviewed/Exam performed by Physician: Yes Changes to H&P: No ASA Class (for procedural sedation): II
[2020-09-18] MEDS: LIDOCAINE 4% SOLN 50 ML 20 ML TOP (11:12)
[2020-09-18] MEDS: MIDAZOLAM 5 MG/5 ML VIAL IV (11:16)
[2020-09-18] MEDS: fentaNYL 250 MCG/5 ML INJ IV (11:16)
[2020-09-18 11:33] VITALS: BP 153/75; PULSE 79; RESP 20; TEMP 37.3; O2SAT 95
--- NOTE | 2020-09-18 11:33 | PM.OP.ENDO ---
Operative Date/Time/Diagnoses Date of procedure: 09/18/20 Time of procedure: 11:33 Pre-op diagnosis: Chronic cough Post-op diagnosis: same (Gastric polyps) Procedure & Clinicians Study performed: EGD with cold biopsy Same procedure as scheduled: Yes Indications: Evaluate for upper GI causes of chronic cough Surgeon: Zack Montemayor Procedure Notes SCOAP/Timeout: Performed Procedure in detail: The patient had topical anesthetic applied to oropharynx. She was placed in the left lateral decubitus position and underwent IV sedation directed by the surgeon consisting of fentanyl and Versed. A bite block was inserted and the scope was advanced through it into the esophagus. I had great difficulty seeing any of the structures around the larynx on the way in. The esophagus was unremarkable. GE junction was noted at 39 cm from the incisors.. The stomach insufflated well. There were no lesions seen in the body, antrum or at the incisura. The pyloric channel was narrowed but patent. The duodenum was unremarkable to the 4th part. Scope was brought back into the stomach and retroflexed. The proximal stomach was normal except for a few polyps. There was no evidence of a hiatal hernia. Biopsy was were taken of random polyps in the fundus and cardia. These all looked like gastric fundic polyps.. The scope was straightened and brought out through the esophagus again. No lesions were seen. I was able to carefully examine around the epiglottis and vocal cord region. Patient had some mild irritation just above the entrance into the esophagus. Otherwise the structures looked normal. The scope was removed and the patient tolerated the procedure well. Scope withdrawal time: Not applicable Sedation minutes: 13 Findings: polyp Specimen(s): other (Gastric polyp biopsies) Complications: none Post-procedure Recommendations: Other recommendation (Consider using a topical or oral steroid to treat the mildly inflamed area just above the entrance into the esophagus. A pulmonary steroid sprayed into the mouth and swallowed rather than a old could be tried.) Follow up: as needed Disposition: PACU
[2020-09-18 11:39] VITALS: BP 134/77; PULSE 66; RESP 14; TEMP 37.2; O2SAT 95
[2020-09-18 11:43] VITALS: BP 136/69; PULSE 64; RESP 14; O2SAT 95
[2020-09-18 12:10] VITALS: BP 127/76; PULSE 70; RESP 14; TEMP 36.4; O2SAT 97
== END 2020-09-18 12:15 | disposition home or self-care (01) ==
PROVIDERS: PCP Family Medicine; Referring Provider Specialist; Visit Provider Specialist
PROC: 0DJ08ZZ Inspection of Upper Intestinal Tract, Via Natural or Artificial Opening Endoscopic (ICD-10-PCS; CPT 43235; principal; 2020-09-18 10:15)
DX: R05 Cough (principal); K21.9 Gastro-esophageal reflux disease without esophagitis; J45.909 Unspecified asthma, uncomplicated; E78.00 Pure hypercholesterolemia, unspecified; E03.9 Hypothyroidism, unspecified; K31.7 Polyp of stomach and duodenum
CPT/HCPCS: 43239; 99152; J2250; J3010

== ENCOUNTER → 2020-11-28 09:35 | Outpatient (CLI) | payer MEDICARE, SELFPAY ==
[2019-02-11 10:03] VITALS: BMI 23.5
--- NOTE | 2020-11-28 | DI.MG.S_ITS ---
BILATERAL DIGITAL SCREENING MAMMOGRAM 3D/2D WITH CAD: 11/28/2020 CLINICAL: Routine screening. Family history of breast cancer. Comparison is made to exams dated: 11/21/2019 mammogram, 06/02/2018 mammogram, and 05/25/2016 mammogram - [facility]. There are scattered fibroglandular elements in both breasts. Current study was also evaluated with a Computer Aided Detection (CAD) system. There are benign calcifications in both breasts. No significant masses, calcifications, or other findings are seen in either breast. There has been no significant interval change. IMPRESSION: BENIGN There is no mammographic evidence of malignancy. A 1 year screening mammogram is recommended. This exam was interpreted at Station ID: [id number]. NOTE: For mammograms, a report in lay terms will be sent to the patient. Approximately 15% of breast malignancies will not be visualized mammographically. In the management of a palpable breast mass, a negative mammogram must not discourage biopsy of a clinically suspicious lesion. Electronically Signed By: Dandre cloud/rommel:11/30/2020 07:42:49 letter sent: Normal Exam ACR BI-RADS Category 2: Benign Finding(s) 3342F
== END ==
PROVIDERS: PCP Family Medicine; Referring Provider Family Medicine; Visit Provider Family Medicine
DX: Z12.31 Encounter for screening mammogram for malignant neoplasm of breast (principal)
CPT/HCPCS: 77063; 77067

== ENCOUNTER 2021-09-29 18:32 | Observation (INO) | payer MEDICARE, SELFPAY ==
[2019-02-11 10:03] VITALS: BMI 23.5
[2021-09-29 18:41] VITALS: BP 127/91; PULSE 91; RESP 24; TEMP 38.1; O2SAT 98; BMI 24.7
--- NOTE | 2021-09-29 19:41 | ED.SEPSIS ---
HPI - Sepsis General Chief Complaint: Abdominal Pain Mode of arrival: Ambulatory Source: patient Limitations: no limitations Evaluation Sepsis Screen: No Definite Risk Sepsis Infection Criteria Present: None Narrative: 75-year-old female former smoker with a history of eosinophilic esophagitis presents with her in the chief complaint of gradually worsening generalized abdominal pain over the course of the day. She states that she felt fine and well when she went to sleep last night and upon waking today noticed that she felt a bit off but did not develop specific pain until a bit later. She denies any obvious provocation, palliation or radiation. She is nauseated but denies any vomiting. She has a strong appetite. She denies any urinary complaints such as dysuria, frequency or urgency. She denies any diarrhea and in fact states she is had a slight decrease in output. She denies runny nose, sore throat or cough. She is had no chest pain or shortness of breath. Review of Systems Review of Systems Narrative: GENERAL: See HPI HEENT: Denies sinus pain, ear pain, sore throat, difficulty swallowing, dizziness. RESPIRATORY: Denies dyspnea, cough, wheezing, hemoptysis, sputum. CARDIOVASCULAR: Denies chest pain, palpitations, orthopnea, edema, GASTROINTESTINAL: See HPI : Denies dysuria, frequency, incontinence, hematuria, urinary retention. MUSCULOSKELETAL: denies weakness, joint pain, or bony pain SKIN: Denies rash, skin lesions, or other NEUROLOGIC: Denies weakness, headache, numbness, change in speech, confusion, seizures, incoordination. PSYCHIATRIC: No concerning psychosocial issues. 12 point review of systems is negative except for those stated above Patient History Medical History Asthma Elevated cholesterol GERD (gastroesophageal reflux disease) Glaucoma Hearing loss Hypothyroidism Melanoma Surgical History History of total right hip arthroplasty (10/02/17) Hx of Achilles tendon repair Hx of tonsillectomy Status post cataract extraction of both eyes with insertion of intraocular lens Social History household members: spouse Smoking Status: Former smoker alcohol intake: current Smoking Status: Former smoker alcohol intake frequency: a few times a week Substance Use Type: does not use Exam Narrative Exam Narrative: GENERAL: [75] year old patient appears stated age. Well-developed patient, in mild distress. Holding an emesis bag, which is empty HEAD: Atraumatic. Normocephalic. EYES: Pupils equal round and reactive. Extraocular motions intact. No scleral icterus. No injection or drainage. ENT: Nose without bleeding, purulent drainage. Throat without erythema, tonsillar hypertrophy or exudate. Airway patent. NECK: Trachea midline. Non tender CARDIOVASCULAR: Regular rate and rhythm without murmurs, gallops, or rubs. RESPIRATORY: Clear to auscultation. Breath sounds equal bilaterally. No wheezes, rales, or rhonchi. GASTROINTESTINAL: Abdomen soft, mild ?bloating?, bowel sounds present but decreased throughout. No significant pain on palpation EXTREMITIES: No edema or joint tenderness. BACK: Nontender without deformity or crepitance. No flank tenderness. NEURO: AOx3. SKIN: No rash or erythema of visible areas Initial Vital Signs Initial Vital Signs: Vital Signs Temperature 100.6 F H 09/29/21 18:41 Pulse Rate 91 H 09/29/21 18:41 Respiratory Rate 24 09/29/21 18:41 Blood Pressure 127/91 H 09/29/21 18:41 Pulse Oximetry 98 09/29/21 18:41 Oxygen Delivery Method 09/29/21 18:41 Course Orders Ordered: ED Orders 09/29/21 19:40 Complete Blood Count AUTO DIFF Stat Comprehensive Metabolic Panel Stat Lactate (Lactic Acid) Stat Lipase Stat 09/29/21 19:41 EKG-12 Lead Stat 09/29/21 20:18 Urine Microscopic Stat 09/29/21 20:40 CT abdomen pelvis w con Stat 09/29/21 20:45 Blood Culture Stat 09/29/21 22:04 COVID19 -Nasal RAPID/Pre-Proc Stat Hydromorphone HCl (Hydromorphone 0.5 Mg Inj) 0.5 mg IV Q2H PRN PRN Reason: Pain, Severe (7-10) Sodium Chloride (Normal Saline 0.9%) 1,000 mls @ 125 mls/hr IV CONT MEI Piperacillin Sod/Tazobactam (Sod 3.375 gm/ Sodium Chloride) 100 mls @ 25 mls/hr IV Q8H MEI Ondansetron HCl (Ondansetron 4 Mg/2 Ml Inj) 4 mg IV Q4HR PRN PRN Reason: Nausea And Vomiting Discontinued Medications Hydromorphone HCl (Hydromorphone 0.5 Mg Inj) 0.5 mg IV NOW ONE Stop: 09/29/21 18:54 Last Admin: 09/29/21 20:05 Dose: 0.5 mg Documented By: DEMETRIA Sodium Chloride (Normal Saline 0.9%) 1,000 mls @ 1,000 mls/hr IV BOLUS ONE Stop: 09/29/21 19:52 Last Infusion: 09/29/21 22:56 Dose: 0 mls/hr Documented By: Admin: 09/29/21 20:05 Dose: 1,000 mls/hr Documented By: DEMETRIA Piperacillin Sod/Tazobactam (Sod 4.5 gm/ Sodium Chloride) 100 mls @ 200 mls/hr IV NOW ONE Stop: 09/29/21 22:03 Last Admin: 09/29/21 22:49 Dose: 200 mls/hr Documented By: URIAH Ondansetron HCl (Ondansetron 4 Mg/2 Ml Inj) 4 mg IV NOW ONE Stop: 09/29/21 18:54 Last Admin: 09/29/21 20:05 Dose: 4 mg Documented By: DEMETRIA Consultations Consultation #1: Dr. Birch contacted, we have discussed the case and he is happy to accept the patient on his service. Vital Signs Vital signs: Vital Signs - 8 hr 09/29/21 18:41 09/29/21 22:02 09/29/21 22:02 Temperature 100.6 F H Pulse Rate 91 H 96 H Respiratory Rate 24 Blood Pressure 127/91 H 163/82 H Pulse Oximetry 98 97 Oxygen Delivery Method Room Air 09/29/21 22:14 09/29/21 22:14 Temperature 98.9 F Pulse Rate 97 H Respiratory Rate Blood Pressure 164/76 H Pulse Oximetry Oxygen Delivery Method Sepsis Guideline Criteria Level 1 - Infection Sepsis Infection Criteria Present: None Treatment Initiated Antibiotics:: IV antimicrobials will be initiated as soon as possible after recognition of sepsis state and within one hour for both sepsis and septic shock. MDM - Sepsis Lab Data Result diagrams: 09/29/21 19:40 09/29/21 19:40 Labs: Lab Results 09/29/21 09/29/21 09/29/21 Range/Units 19:40 19:40 19:40 WBC 16.0 H (4.5-11.0) X10^3/uL RBC 4.27 (4.0-5.2) X10^6/uL Hgb 12.8 (12.0-16.0) g/dL Hct 37.8 (36-46) % MCV 88.6 (80-100) fL MCH 30.0 (26-34) PG MCHC 33.9 (30-36) % RDW 13.6 (11.6-14.8) % Plt Count 298 (150-400) X10^3/uL Neut % (Auto) 89.5 H (50-75) % Lymph % (Auto) 3.9 L (25-40) % [place] % (Auto) 6.4 (3-14) % Eos % (Auto) 0.0 L (2-4) % Baso % (Auto) 0.2 (0-2) % Neut # (Auto) 78128 H (6293-2280) /uL Lymph # (Auto) 600 L (8947-0246) /uL [place] # (Auto) 1000 H (0-900) /uL Eos # (Auto) 0 (0-450) /uL Baso # (Auto) 0 (0-100) /uL Sodium 136 L (137-145) mmol/L Potassium 3.5 (3.4-5.1) mmol/L Chloride 104 (98-107) mmol/L Carbon Dioxide 23 (22-32) mmol/L BUN 14 (7-17) mg/dL Creatinine 0.72 (0.52-1.04) mg/dL Estimated GFR > 60 (>60) mL/min BUN/Creatinine Ratio 19.4 (6-22) Glucose 127 H (80-110) mg/dL Lactate 1.2 (0.7-2.1) mmol/L Calcium 8.5 (8.4-10.2) mg/dL Total Bilirubin 0.5 (0.2-1.3) mg/dL AST 21 (14-36) IU/L ALT 14 (<35) IU/L Alkaline Phosphatase 46 (38-126) U/L Total Protein 6.8 (6.3-8.2) g/dL Albumin 4.2 (3.5-5.0) g/dL Globulin 2.6 (1.7-4.1) g/dL Albumin/Globulin Ratio 1.6 (1.0-2.8) Lipase 28 (23-300) U/L Urine RBC (0-5/HPF) Urine WBC (0-5/HPF) Ur Squamous Epith Cells (0-5/HPF) Ur Transition Epith Cell (0-5/HPF) Urine Bacteria (None) Ur Culture Indicated? 09/29/21 Range/Units 20:18 WBC (4.5-11.0) X10^3/uL RBC (4.0-5.2) X10^6/uL Hgb (12.0-16.0) g/dL Hct (36-46) % MCV (80-100) fL MCH (26-34) PG MCHC (30-36) % RDW (11.6-14.8) % Plt Count (150-400) X10^3/uL Neut % (Auto) (50-75) % Lymph % (Auto) (25-40) % [place] % (Auto) (3-14) % Eos % (Auto) (2-4) % Baso % (Auto) (0-2) % Neut # (Auto) (6188-3416) /uL Lymph # (Auto) (2234-5242) /uL [place] # (Auto) (0-900) /uL Eos # (Auto) (0-450) /uL Baso # (Auto) (0-100) /uL Sodium (137-145) mmol/L Potassium (3.4-5.1) mmol/L Chloride (98-107) mmol/L Carbon Dioxide (22-32) mmol/L BUN (7-17) mg/dL Creatinine (0.52-1.04) mg/dL Estimated GFR (>60) mL/min BUN/Creatinine Ratio (6-22) Glucose (80-110) mg/dL Lactate (0.7-2.1) mmol/L Calcium (8.4-10.2) mg/dL Total Bilirubin (0.2-1.3) mg/dL AST (14-36) IU/L ALT (<35) IU/L Alkaline Phosphatase (38-126) U/L Total Protein (6.3-8.2) g/dL Albumin (3.5-5.0) g/dL Globulin (1.7-4.1) g/dL Albumin/Globulin Ratio (1.0-2.8) Lipase (23-300) U/L Urine RBC 10-30/hpf H (0-5/HPF) Urine WBC 1-5/hpf (0-5/HPF) Ur Squamous Epith Cells 1-5 /hpf (0-5/HPF) Ur Transition Epith Cell 1-5/hpf (0-5/HPF) Urine Bacteria Occasional (0-1) (None) Ur Culture Indicated? Cult not indicated Urine Dip Bedside Urine Glucose Negative Bedside Urine Bilirubin - Negative Bedside Urine Ketone - Negative Urine Specific [place] 1.015 Bedside Urine Occult Blood +++ Bedside Urine Protein - Negative Bedside Urine Urobilinogen - Negative Bedside Urine Nitrite - Negative Bedside Urine Leukocytes - Negative Esterase Imaging Data CT scan - abdomen/pelvis: Radiologist's Impression: [address] [address] [address] Scan Report Signed Patient: Emi Kennedy MR#: [id number] : 1945 Acct:[id number] Age/Sex: 75 / F Date of Service: 09/29/21 Loc: ED Accession Number: [id number] ?? Procedure: CT abdomen pelvis w con Ordering Provider: Bryan Cullen D.O. PROCEDURE:? CT ABDOMEN PELVIS W CON ? INDICATIONS:? abdominal pain, fever, nausea ? TECHNIQUE:? After the administration of IV contrast, axial sections were acquired from the lung bases to the pubic symphysis.? Coronal and sagittal reformats were performed.? For radiation dose reduction, the following was used:? automated exposure control, adjustment of mA and/or kV according to patient size. ? COMPARISON:? None. ? FINDINGS:? Image quality:? There is metallic streak artifact from patient's bilateral hip prostheses.? ? Lung bases:? Unremarkable.? ? Heart:? Heart is normal in size. ? ? ABDOMEN: Liver:? No mass lesion. Gallbladder:? Within normal limits without calcified gallstones.? ? Biliary ducts:? No biliary ductal dilatation.? ? Pancreas:? Unremarkable.? ? Spleen:? Normal in size.? There is a small cystic focus anteriorly within the spleen measuring up to 0.5 cm which is too small to characterize.? Adrenal Glands:? No adrenal nodules.? ? Kidneys and Ureters:? No hydronephrosis.? There is a small hypodensity in the right kidney which is too small to characterize but likely represents a cyst. ? ? Stomach and Bowel:? Stomach, small bowel loops, and colon are normal in caliber and wall thickness.? The appendix is distended and thick-walled, measuring up to 1.1 cm in diameter with associated periappendiceal fat stranding.? Multiple calcified appendicoliths are present within the appendix.? No adjacent free fluid or fluid collections to suggest an abscess or perforation.? Peritoneum:? No abnormal intraperitoneal fluid.? No free air.? ? Ventral Wall: ? No hernia.? Abdominal Nodes:? No retroperitoneal or mesenteric adenopathy by size criteria.? Vessels:? Aorta and inferior vena cava are normal in size.? ? PELVIS: Pelvic Organs:? Unremarkable.? ? Bladder:? Unremarkable.? ? Pelvic Nodes: No enlarged lymph nodes.? Miscellaneous: No inguinal hernias are seen. ? ? ? Bones:? Visualized osseous structures demonstrate no suspicious focal lesions.? ? IMPRESSION:? ? 1. Acute appendicitis with multiple appendicoliths demonstrated.? No definite evidence of perforation.? ? Findings discussed with Dr. Cullen on 09/29/2021 at 9:55 p.m..? ? Dictated by: Sreekanth Casanova M.D. on 09/29/2021 at 21:53 ? ? Approved by: Sreekanth Casanova M.D. on 09/29/2021 at 21:58 ? Discharge Plan Departure Patient Disposition: Admitted As Inpatient Clinical Impression: Acute appendicitis
[2021-09-29] MEDS: ONDANSETRON 4 MG/2 ML INJ IV (20:05)
[2021-09-29] MEDS: HYDROMORPHONE 0.5 MG INJ IV ×2 (20:05→23:20)
[2021-09-29] MEDS: SODIUM CHLORIDE 0.9% 1,000 ML 1000 ML IV (20:05)
[2021-09-29 20:15] LABS: Add Manual Diff / Slide Review NO; Basophils Absolute Auto 0 /uL (0-100); Basophils Percent Auto 0.2 % (0-2); Eosinophils Absolute Auto 0 /uL (0-450); Hematocrit 37.8 % (36-46); Hemoglobin 12.8 g/dL (12.0-16.0); Lymphocytes Absolute Auto 600 /uL (1100-4500); Lymphocytes Percent Auto 3.9 % (25-40); Mean Corpuscular HGB Conc 33.9 % (30-36); Mean Corpuscular Volume 88.6 fL (80-100); Monocytes Absolute Auto 1000 /uL (0-900); Monocytes Percent Auto 6.4 % (3-14); Neutrophils Absolute Auto 14300 /uL (1500-7000); Neutrophils Percent Auto 89.5 % (50-75); Platelet Count 298 X10^3/uL (150-400); Red Blood Cell Count 4.27 X10^6/uL (4.0-5.2); Red Cell Distribution Width 13.6 % (11.6-14.8)
[2021-09-29 20:34] LABS: Lactate (Lactic Acid) 1.2 mmol/L (0.7-2.1)
[2021-09-29 20:36] LABS: Alanine Aminotransferase 14 IU/L (<35); Albumin 4.2 g/dL (3.5-5.0); Albumin Globulin Ratio 1.6 (1.0-2.8); Alkaline Phosphatase 46 U/L (38-126); Aspartate Aminotransferase 21 IU/L (14-36); BUN Creatinine Ratio 19.4 (6-22); Bilirubin Total 0.5 mg/dL (0.2-1.3); Blood Urea Nitrogen 14 mg/dL (7-17); Calcium 8.5 mg/dL (8.4-10.2); Carbon Dioxide 23 mmol/L (22-32); Chloride 104 mmol/L (98-107); Estimated Glomerular Filt Rate > 60 mL/min (>60); Globulin 2.6 g/dL (1.7-4.1); Glucose 127 mg/dL (80-110); HEMOLYSIS < 15 (0-50); Lipase 28 U/L (23-300); Potassium 3.5 mmol/L (3.4-5.1); Sodium 136 mmol/L (137-145); Total Protein 6.8 g/dL (6.3-8.2)
--- NOTE | 2021-09-29 20:40 | DI.CT.S_ITS ---
PROCEDURE: CT ABDOMEN PELVIS W CON INDICATIONS: abdominal pain, fever, nausea TECHNIQUE: After the administration of IV contrast, axial sections were acquired from the lung bases to the pubic symphysis. Coronal and sagittal reformats were performed. For radiation dose reduction, the following was used: automated exposure control, adjustment of mA and/or kV according to patient size. COMPARISON: None. FINDINGS: Image quality: There is metallic streak artifact from patient's bilateral hip prostheses. Lung bases: Unremarkable. Heart: Heart is normal in size. ABDOMEN: Liver: No mass lesion. Gallbladder: Within normal limits without calcified gallstones. Biliary ducts: No biliary ductal dilatation. Pancreas: Unremarkable. Spleen: Normal in size. There is a small cystic focus anteriorly within the spleen measuring up to 0.5 cm which is too small to characterize. Adrenal Glands: No adrenal nodules. Kidneys and Ureters: No hydronephrosis. There is a small hypodensity in the right kidney which is too small to characterize but likely represents a cyst. Stomach and Bowel: Stomach, small bowel loops, and colon are normal in caliber and wall thickness. The appendix is distended and thick-walled, measuring up to 1.1 cm in diameter with associated periappendiceal fat stranding. Multiple calcified appendicoliths are present within the appendix. No adjacent free fluid or fluid collections to suggest an abscess or perforation. Peritoneum: No abnormal intraperitoneal fluid. No free air. Ventral Wall: No hernia. Abdominal Nodes: No retroperitoneal or mesenteric adenopathy by size criteria. Vessels: Aorta and inferior vena cava are normal in size. PELVIS: Pelvic Organs: Unremarkable. Bladder: Unremarkable. Pelvic Nodes: No enlarged lymph nodes. Miscellaneous: No inguinal hernias are seen. Bones: Visualized osseous structures demonstrate no suspicious focal lesions. IMPRESSION: 1. Acute appendicitis with multiple appendicoliths demonstrated. No definite evidence of perforation. Findings discussed with Dr. Cullen on 09/29/2021 at 9:55 p.m.. Dictated by: Sreekanth Casanova M.D. on 09/29/2021 at 21:53 Approved by: Sreekanth Casanova M.D. on 09/29/2021 at 21:58
[2021-09-29 20:50] LABS: Bacteria Urine Occasional (0-1); Culture Indicated Urine Cult Not Indicated; RBC Urine 10-30/HPF (0-5/HPF); Squamous Epithelial Cell Urine 1-5 /HPF (0-5/HPF); Transitional Epi Cells Urine 1-5/HPF (0-5/HPF); WBC Urine 1-5/HPF (0-5/HPF)
[2021-09-29 22:02] VITALS: BP 163/82; PULSE 96; O2SAT 97
[2021-09-29 22:14] VITALS: BP 164/76; PULSE 97; TEMP 37.2
[2021-09-29 22:30] VITALS: BP 161/77; PULSE 94; O2SAT 98
[2021-09-29] MEDS: PIPERACILLIN/TAZO 4.5 GM in SODIUM CHLORIDE 0.9% 100 ML IV (22:49)
[2021-09-29 23:00] VITALS: BP 162/74; PULSE 99; O2SAT 97
[2021-09-29 23:30] VITALS: BP 145/70; PULSE 96; RESP 14; O2SAT 97
[2021-09-29 23:45] LABS: COVID19 -Nasal RAPID Negative (Negative)
[2021-09-30] VITALS (30 sets, daily range): BP systolic 119–171; BP diastolic 60–89; PULSE 74–104; RESP 13–23; TEMP 36.6–37.6; O2SAT 90–98; BMI 24.7
--- NOTE | 2021-09-30 | PATH_ITS ---
[facility] Accession Number: [id number] . 01 Material submitted: . appendix - APPENDIX . 01 Diagnosis: Appendix, Appendectomy: Appendicitis with perforation and serositis. MRV 10/04/2021 1542 Local . 01 Electronically signed: . Kendal Gates MD, Pathologist NPI- [id number] . 01 Gross description: . Received in formalin, labeled with the patient's name and appendix, and consists of a distorted appendix measuring 6.1 x 1.1 cm with a small amount of detached mesoappendix measuring 4.2 cm in length. The serosa is powell and roughened with hemorrhagic and possible suppurative exudates. A full-thickness defect is identified measuring 0.5 cm in greatest dimension. The margin is possibly received patent, however, it is distorted and is inked blue. The lumen is filled with brown, semisolid material and average 0.5 cm in diameter. The ling are dusky powell and average 0.2 cm thick. No lesions or fecaliths are identified. Electronic Induction Hardener sections to include the possible surgical margin, area of perforation, one-half of the distal tip, and community service representative cross-sections are submitted in cassette A1. ([id number]) /FRR 10/02/2021 0941 Local . 01 Pathologist provided ICD-10: K35.80 . 01 CPT . 225047 Specimen Comment: A courtesy copy of this report has been sent to [phone] Performed at: 01 [facility] [address] [place] [address] [address] [facility], [place], [place] [id number] MD Sreekanth Man MD Phone: [phone]
[2021-09-30] MEDS: SODIUM CHLORIDE 0.9% 1,000 ML 125 ML IV (00:15)
[2021-09-30] MEDS: HYDROMORPHONE 0.5 MG INJ IV (03:21)
[2021-09-30] MEDS: PIPERACILLIN/TAZO 3.375 GM in SODIUM CHLORIDE 0.9% 100 ML IV ×2 (05:33→19:46)
[2021-09-30] MEDS: LACTATED RINGERS 1,000 ML 84 ML IV (11:26)
--- NOTE | 2021-09-30 11:36 | SUR.OPER ---
Supine on padded OR bed, head on pillow, right arm padded on armboard, left arm tucked at side, legs uncrossed, safety belt at thigh, tape over blanket over lower legs .
--- NOTE | 2021-09-30 12:08 | P.HP_ITS ---
History of Present Illness History of Present Illness Date Patient Seen: 09/30/21 Time Patient Seen: 12:08 Chief complaint: Nausea, ABD pain, Sent from [facility] Narrative: 75-year-old woman with several days of abdominal pain now in the right lower quadrant. She presented to the emergency room last night and its underwent workup including laboratory studies imaging. Labs significant for white blood cell count [address] abdomen pelvis demonstrates acute appendicitis with multiple fecaliths stranding, no abscess or free air. She received Zosyn feels better than yesterday. Patient History Medical History Asthma Elevated cholesterol GERD (gastroesophageal reflux disease) Glaucoma Hearing loss Hypothyroidism Melanoma Surgical History History of total right hip arthroplasty (10/02/17) Hx of Achilles tendon repair Hx of tonsillectomy Status post cataract extraction of both eyes with insertion of intraocular lens Family & Social History Social History: household members spouse Prior Living Arrangements House Safety & Behavioral: Feels Safe in Current Yes Environment Been Physically Hurt or No Threatened By a Person Tobacco & Substance use: Tobacco type cigarettes Smoking Status Former smoker alcohol intake current alcohol intake frequency a few times a week Substance Use Type does not use Meds Home Medications and Allergies Home Medications Medication Instructions Recorded Confirmed Type levothyroxine 50 mcg tablet 50 mcg PO DAILY 09/27/17 09/30/21 History (Synthroid) omeprazole 40 mg capsule,delayed 40 mg PO QAM 09/27/17 09/30/21 History release trazodone 100 mg tablet 100 - 150 mg PO BEDTIME PRN Sleep 09/27/17 09/30/21 History latanoprost 0.005 % eye drops 1 drp EYE-BOTH BEDTIME 02/05/19 09/30/21 History aspirin 81 mg tablet,delayed 81 mg PO DAILY 09/10/20 09/30/21 History release (Adult Low Dose Aspirin) calcium carbonate 600 mg-vitamin 1 tab PO BID 09/10/20 09/30/21 History D3 20 mcg (800 unit) chewable tablet (Caltrate 600 plus D) cholecalciferol (vitamin D3) 50 50 mcg PO DAILY 09/10/20 09/30/21 History mcg (2,000 unit) capsule (Vitamin D3) cyanocobalamin (vitamin B-12) 2,500 mcg PO DAILY 09/10/20 09/30/21 History 2,500 mcg tablet lisinopril 40 mg tablet 40 mg PO DAILY 09/10/20 09/30/21 History fluticasone propionate 50 See Rx Instructions intranasal 11/12/20 09/30/21 Rx mcg/actuation nasal DAILY eosiniphilic esophagitis #16 spray,suspension grams Allergies Allergy/AdvReac Type Severity Reaction Status Date / Time adhesive tape Allergy Mild Redness, Verified 09/30/21 11:26 itching w/some tapes Sulfa (Sulfonamide Allergy Mild Over 50 Verified 09/30/21 11:26 Antibiotics) years ago, unknown reaction per pt meloxicam AdvReac Mild Nausea Verified 09/30/21 11:26 Exam Vital Signs (past 8 hours): - 09/30/21 07:22 09/30/21 07:22 09/30/21 07:30 Temperature Pulse Rate 99 H Respiratory Rate Blood Pressure 143/65 H 142/65 H Pulse Oximetry 97 Oxygen Delivery Method 09/30/21 07:30 09/30/21 08:00 09/30/21 08:00 Temperature Pulse Rate 95 H 104 H Respiratory Rate Blood Pressure 128/70 Pulse Oximetry 91 96 Oxygen Delivery Method 09/30/21 08:30 09/30/21 08:30 09/30/21 09:00 Temperature Pulse Rate 91 H Respiratory Rate Blood Pressure 147/65 H 153/70 H Pulse Oximetry 92 Oxygen Delivery Method 09/30/21 09:00 09/30/21 09:30 09/30/21 09:30 Temperature Pulse Rate 94 H 94 H Respiratory Rate Blood Pressure 161/74 H Pulse Oximetry 92 94 Oxygen Delivery Method 09/30/21 10:00 09/30/21 10:00 09/30/21 10:37 Temperature Pulse Rate 94 H 90 Respiratory Rate Blood Pressure 149/68 H Pulse Oximetry 93 96 Oxygen Delivery Method 09/30/21 11:17 Temperature 99.7 F H Pulse Rate 94 H Respiratory Rate 18 Blood Pressure 125/75 Pulse Oximetry 98 Oxygen Delivery Method Room Air Oxygen Delivery Method Room Air Narrative Exam Narrative: General elderly woman alert oriented no acute distress Chest nonlabored respiration Abdomen tender right lower quadrant. No peritonitis. Objective Labs Result Diagrams: 09/29/21 19:40 08/03/22 19:40 Labs: Laboratory Results - last 24 hr 09/29/21 09/29/21 09/29/21 19:40 19:40 19:40 WBC 16.0 H RBC 4.27 Hgb 12.8 Hct 37.8 MCV 88.6 MCH 30.0 MCHC 33.9 RDW 13.6 Plt Count 298 Neut % (Auto) 89.5 H Lymph % (Auto) 3.9 L [place] % (Auto) 6.4 Eos % (Auto) 0.0 L Baso % (Auto) 0.2 Neut # (Auto) 39605 H Lymph # (Auto) 600 L [place] # (Auto) 1000 H Eos # (Auto) 0 Baso # (Auto) 0 Sodium 136 L Potassium 3.5 Chloride 104 Carbon Dioxide 23 BUN 14 Creatinine 0.72 Estimated GFR > 60 BUN/Creatinine Ratio 19.4 Glucose 127 H Lactate 1.2 Calcium 8.5 Total Bilirubin 0.5 AST 21 ALT 14 Alkaline Phosphatase 46 Total Protein 6.8 Albumin 4.2 Globulin 2.6 Albumin/Globulin Ratio 1.6 Lipase 28 Urine RBC Urine WBC Ur Squamous Epith Cells Ur Transition Epith Cell Urine Bacteria Ur Culture Indicated? SARS-CoV-2 (PCR) 09/29/21 09/29/21 20:18 23:06 WBC RBC Hgb Hct MCV MCH MCHC RDW Plt Count Neut % (Auto) Lymph % (Auto) [place] % (Auto) Eos % (Auto) Baso % (Auto) Neut # (Auto) Lymph # (Auto) [place] # (Auto) Eos # (Auto) Baso # (Auto) Sodium Potassium Chloride Carbon Dioxide BUN Creatinine Estimated GFR BUN/Creatinine Ratio Glucose Lactate Calcium Total Bilirubin AST ALT Alkaline Phosphatase Total Protein Albumin Globulin Albumin/Globulin Ratio Lipase Urine RBC 10-30/hpf H Urine WBC 1-5/hpf Ur Squamous Epith Cells 1-5 /hpf Ur Transition Epith Cell 1-5/hpf Urine Bacteria Occasional (0-1) Ur Culture Indicated? Cult not indicated SARS-CoV-2 (PCR) Negative Assessment & Plan Assessment and plan (1) Acute appendicitis: Status: Acute Assessment & Plan narrative: 75-year-old woman with symptoms and radiographic findings consistent with acute appendicitis without abscess. CT abdomen pelvis personally reviewed and discussed with patient. Recommended that we proceed to the operating room for a laparoscopic appendectomy. Technical remove the operation was discussed with the patient. Operative risks including bleeding, infection, staple line leak, damage to surrounding structures were discussed. Her questions have been answered she is in agreement with this plan. Time Spent With Patient Critical Care time: I spent a total of [] minutes of critical care time on this patient's care toda y; this time is exclusive of procedural time.
--- NOTE | 2021-09-30 12:34 | CM.DANOTE ---
pateint Discharge Planning/Care Management CM Discharge Assessment Start: 09/30/21 12:31 Freq: Status: Active Protocol: Document 09/30/21 12:31 BF (Rec: 09/30/21 12:33 BF [id number]) Discharge Planning Assessment Assigned Movement Assembly Final Inspector NANDO Mead DPOA/Assigned Designee Name Dtvish Horacio Contact Information [phone] Advance Directives? Yes Advance Directives on File Yes History Provided By Patient,Family Member,Medical Record Has Patient been admitted in last 30 No days? Prior Living Arrangements House Household Members spouse Type of transporation used prior to Drives own vehicle admit Independent with ADL's Yes Is patient alert and oriented? Yes Caregiver for Another No Patient/Family Preference OP PT Therapy Barriers to Discharge No Discharge Plan Home Transportation Arrangement Dtr bedside for CG training and to provide transport today Referrals Initiated None needed Whiteboard Updated in Patient Room with Yes name and ext. # of Movement Assembly Final Inspector Review Status In Process Please Provide Date Initial DC 09/30/21 Assessment Was Performed Next Review Type Continued Stay Review
[2021-09-30] MEDS: LIDOCAINE 1% 20 ML INJ (12:43)
[2021-09-30] MEDS: OXYCODONE IR 5 MG TABLET PO (16:22)
--- NOTE | 2021-09-30 16:38 | PC.NURSE ---
Pt arrived 1405 from PACU A/O SpO2 94% RA HL RFA intact/patent. Bandaid dsg x 2 to abdomen CDI Srini drain left side intact/patent. Med @1600 for discomfort w/good relief. Call light w/in reach, pt calls appropriately for needs. Continue w/plan of care.
--- NOTE | 2021-09-30 18:44 | P.OP_ITS ---
Operative Date/Time/Diagnoses Date of procedure: 09/30/21 Time of procedure: 13:00 Pre-op diagnosis: Acute appendicitis Post-op diagnosis: same Procedure & Clinicians Procedure: laparoscopic appendectomy Same procedure as scheduled: Yes Indications: symptoms and radiographic findings consistent with acute appendicitis. Surgeon: Keron Birch Click Yes if Unassisted: Yes Anesthesia Type: General Operative Notes Findings: perforated appendix. Purulence peritonitis. Specimen(s): other ( appendix) Estimated Blood Loss (mL): 50 Procedure in detail: Patient was brought to the operating room placed supine on the table. Bilateral lower extremity compression devices were applied. Anesthesia was induced and they intubated with an endotracheal tube. They received 3.375 g of Zosyn prior to skin incision. The left arm was tucked and appropriately padded. They were prepped and draped in sterile fashion. Time-out was performed. An infraumbilical incision was made the umbilical stalk was grasped and elevated and incision was made and the abdomen was entered atraumatically. A 12 mm ball oon trocar was then placed through the incision and pneumoperitoneum of 14 mm Hg was established. The scope was then inserted and the abdomen inspected, there was no evidence of injury upon entry. Two 5 mm ports were placed under direct visualization, one in the left lower quadrant and second in the lower midline. A thorough laparoscopic evaluation was performed inspecting all four quadrants. there was purulent peritonitis primarily in the right lower quadrant.The patient was then tilted right side up. The small bowel was then swept to the upper aspect of the abdomen. The tenie were followed to the base of the cecum where the appendix was identified. It was necrotic and perforated however the base was viable.. The appendix was was mobilized from its lateral attachments. . The mesoappendix was Divided using the cautery. The appendix was then amputated flush at the cecum using the endo-stapler blue load. The specimen was retrieved using a endoscopic retrieval bad through the 10 mm infra-umbilical port. The right paracolic gutter and the pouch of Vern were irrigated A 19 Armenian Srini drain was placed through the left lower quadrant port site placed into the right pericolic gutter. The 5 mm ports were then removed under direct visualization. The umbilical fascial incision was closed with 0 Vicryl in a figure-eight fashion. The skin wounds were irrigated and closed with 4-0 Monocryl followed by the application of Dermabond. Sponge instrument count at the end of the operation was correct. The patient tolerated procedure well was extubated and transferred to the postoperative care unit in stable condition. Complications: none Post-operative Condition: stable Disposition: Acute Care
[2021-09-30] MEDS: KETOROLAC 30 MG/ML VIAL 15 MG IV (19:46)
[2021-10-01] VITALS (11 sets, daily range): BP systolic 135–154; BP diastolic 61–77; PULSE 79–94; RESP 17–19; TEMP 36.6–37.1; O2SAT 94–98
[2021-10-01] MEDS: PIPERACILLIN/TAZO 3.375 GM in SODIUM CHLORIDE 0.9% 100 ML IV ×3 (05:34→20:05)
[2021-10-01 05:56] LABS: Add Manual Diff / Slide Review NO; Basophils Absolute Auto 0 /uL (0-100); Basophils Percent Auto 0.1 % (0-2); Eosinophils Absolute Auto 0 /uL (0-450); Hematocrit 33.8 % (36-46); Hemoglobin 11.1 g/dL (12.0-16.0); Lymphocytes Absolute Auto 800 /uL (1100-4500); Lymphocytes Percent Auto 5.1 % (25-40); Mean Corpuscular HGB Conc 32.9 % (30-36); Mean Corpuscular Hemoglobin 29.7 PG (26-34); Mean Corpuscular Volume 90.4 fL (80-100); Monocytes Absolute Auto 600 /uL (0-900); Monocytes Percent Auto 4.1 % (3-14); Neutrophils Absolute Auto 13300 /uL (1500-7000); Neutrophils Percent Auto 90.7 % (50-75); Platelet Count 241 X10^3/uL (150-400); Red Blood Cell Count 3.74 X10^6/uL (4.0-5.2); Red Cell Distribution Width 14.2 % (11.6-14.8); White Blood Cell Count 14.7 X10^3/uL (4.5-11.0)
[2021-10-01] MEDS: OXYCODONE IR 5 MG TABLET PO ×4 (06:46→18:51)
[2021-10-01] MEDS: ENOXAPARIN 40 MG/0.4 ML SYRINGE SUBCUT (08:52)
--- NOTE | 2021-10-01 11:49 | P.PN_ITS ---
Subjective Subjective Date Patient Seen: 10/01/21 Time Patient Seen: 11:49 Interval history: No major overnight events. No nausea vomiting. Tolerating diet. No fever. Exam Vital Signs (past 8 hours): - 10/01/21 05:00 10/01/21 05:00 10/01/21 08:25 Temperature 98.0 F 97.8 F Pulse Rate 88 80 Respiratory Rate 18 19 Blood Pressure 139/71 154/77 H Pulse Oximetry 98 95 95 Oxygen Delivery Method Room Air Oxygen Flow Rate 0 0 10/01/21 08:57 Temperature Pulse Rate Respiratory Rate Blood Pressure Pulse Oximetry 97 Oxygen Delivery Method Room Air Oxygen Flow Rate Oxygen Delivery Method Room Air Oxygen Flow Rate 0 Narrative Exam Narrative: General adult woman alert oriented no acute distress Abdomen soft appropriately tender to palpation. Incisions clean dry intact. Drain serosanguineous Objective Labs Result Diagrams: 10/01/21 05:39 09/29/21 19:40 Labs: Laboratory Results - last 24 hr 10/01/21 05:39 WBC 14.7 H RBC 3.74 L Hgb 11.1 L Hct 33.8 L MCV 90.4 MCH 29.7 MCHC 32.9 RDW 14.2 Plt Count 241 Neut % (Auto) 90.7 H Lymph % (Auto) 5.1 L [place] % (Auto) 4.1 Eos % (Auto) 0.0 L Baso % (Auto) 0.1 Neut # (Auto) 64975 H Lymph # (Auto) 800 L [place] # (Auto) 600 Eos # (Auto) 0 Baso # (Auto) 0 PFSH Medical History Asthma Elevated cholesterol GERD (gastroesophageal reflux disease) Glaucoma Hearing loss Hypothyroidism Melanoma Surgical History History of total right hip arthroplasty (10/02/17) Hx of Achilles tendon repair Hx of tonsillectomy Status post cataract extraction of both eyes with insertion of intraocular lens Social History household members: spouse Smoking Status: Former smoker alcohol intake: current Assessment & Plan Post-op Postoperative Procedures: Procedures Operation Date: 09/30/21 12:00 Actual Procedure Side Surgeon p Laparoscopic Appendectomy Keron Birch MD Postoperative plan narrative: 75-year-old woman postoperative day 1 status post laparoscopic appendectomy for perforated appendicitis. Remains hospitalized for IV antibiotics. -Diet as tolerated -Zosyn -likely drain removal tomorrow -possible discharge tomorrow if leukocytosis down trending
[2021-10-01] MEDS: KETOROLAC 30 MG/ML VIAL 15 MG IV ×2 (12:16→20:05)
--- NOTE | 2021-10-01 13:22 | CM.DANOTE ---
Patient is a 75 yo female who was admitted on 09/30/21 for Abd Pain. Pt has [facility] and [employer] for insurance and her PCP is Dr. Ford Bello. EMR was reviewed. Per Surgeon, pt with acute appendicitis and was taken to the OR last night for lap appe and pt now on IV-Abx for a few doses due to perforated appendix. Per Surgeon, pt tolerated procedure well and likely will have drain dc'd tomorrow 10/02/21 and to continue to ambulate with potential for d/c in 1-2 days if stable. SW spoke to pt and spouse while pt was ambulating in the hallways with spouse present. They confirm they live in [place] and pt is independent with ADLs and active and drives and denies any hx of HH or SNF and spouse is currently her DPOA. Pt currently ambulating independently in hallways with steady gait and no needs and spouse very attentive and available for assist if needed at d/c and plans to provide transport at discharge to home. Pt and spouse do not anticipate any needs and preference is home this weekend if stable. Plan: SW to follow closely for plan of d/c home likely this weekend if medically stable and continues to have pain well managed and continues to tolerate diet and any further identified discharge planning needs. NANDO Latif Discharge Planning/Care Management Document 10/01/21 13:20 BF (Rec: 10/01/21 13:21 BF [id number]) Discharge Planning Assessment Assigned Telemetry Monitor NANDO Mead DPOA/Assigned Designee Name spouse Osmin Contact Information [phone] Advance Directives? Yes Advance Directives on File Yes History Provided By Patient,Family Member,Medical Record Has Patient been admitted in last 30 No days? Prior Living Arrangements House Household Members spouse Type of transporation used prior to Drives own vehicle admit Independent with ADL's Yes Is patient alert and oriented? Yes Caregiver for Another No Barriers to Discharge No Discharge Plan Home Transportation Arrangement Spouse bedside and plans to provide transport at d/c Referrals Initiated None needed Whiteboard Updated in Patient Room with Yes name and ext. # of Telemetry Monitor Review Status In Process Please Provide Date Initial DC 10/01/21 Assessment Was Performed Next Review Type Continued Stay Review
[2021-10-01] MEDS: ACETAMINOPHEN 325 MG TABLET 975 MG PO (13:44)
[2021-10-01] MEDS: SODIUM CHLORIDE 0.9% FLUSH 10 ML IV (21:43)
[2021-10-01] MEDS: ONDANSETRON 4 MG/2 ML INJ IV (23:18)
[2021-10-02] VITALS (10 sets, daily range): BP systolic 145–159; BP diastolic 56–78; PULSE 64–98; RESP 18–20; TEMP 36–36.6; O2SAT 94–97
[2021-10-02] MEDS: PIPERACILLIN/TAZO 3.375 GM in SODIUM CHLORIDE 0.9% 100 ML IV ×3 (04:19→21:20)
[2021-10-02 06:57] LABS: Add Manual Diff / Slide Review NO; Basophils Absolute Auto 0 /uL (0-100); Basophils Percent Auto 0.1 % (0-2); Eosinophils Absolute Auto 0 /uL (0-450); Eosinophils Percent Auto 0.1 % (2-4); Hemoglobin 10.6 g/dL (12.0-16.0); Lymphocytes Absolute Auto 600 /uL (1100-4500); Lymphocytes Percent Auto 5.9 % (25-40); Mean Corpuscular HGB Conc 34.2 % (30-36); Mean Corpuscular Hemoglobin 30.3 PG (26-34); Mean Corpuscular Volume 88.7 fL (80-100); Monocytes Absolute Auto 500 /uL (0-900); Monocytes Percent Auto 4.2 % (3-14); Neutrophils Absolute Auto 9800 /uL (1500-7000); Neutrophils Percent Auto 89.7 % (50-75); Platelet Count 243 X10^3/uL (150-400); Red Cell Distribution Width 14.1 % (11.6-14.8)
[2021-10-02] MEDS: KETOROLAC 30 MG/ML VIAL 15 MG IV ×3 (07:52→21:19)
[2021-10-02] MEDS: SODIUM CHLORIDE 0.9% FLUSH 10 ML IV ×2 (07:54→21:21)
[2021-10-02] MEDS: ENOXAPARIN 40 MG/0.4 ML SYRINGE SUBCUT (07:54)
--- NOTE | 2021-10-02 12:42 | PM.PN.1 ---
Subjective Subjective Date Patient Seen: 10/02/21 Interval history: Continues to have thick purulent drainage. Minimal appetite. Exam Vital Signs (past 8 hours): - 10/02/21 05:00 10/02/21 08:01 10/02/21 07:40 Temperature 97.8 F Pulse Rate 82 Respiratory Rate 18 Blood Pressure 156/70 H Pulse Oximetry 97 97 97 Oxygen Delivery Method Room Air Room Air Oxygen Flow Rate 0 10/02/21 12:04 Temperature Pulse Rate Respiratory Rate Blood Pressure Pulse Oximetry 97 Oxygen Delivery Method Room Air Oxygen Flow Rate Oxygen Delivery Method Room Air Oxygen Flow Rate 0 Const General: comfortable GI Palpation: soft Objective Labs Result Diagrams: 10/02/21 06:48 09/29/21 19:40 Labs: Laboratory Results - last 24 hr 10/02/21 06:48 WBC 11.0 RBC 3.50 L Hgb 10.6 L Hct 31.0 L MCV 88.7 MCH 30.3 MCHC 34.2 RDW 14.1 Plt Count 243 Neut % (Auto) 89.7 H Lymph % (Auto) 5.9 L [place] % (Auto) 4.2 Eos % (Auto) 0.1 L Baso % (Auto) 0.1 Neut # (Auto) 9800 H Lymph # (Auto) 600 L [place] # (Auto) 500 Eos # (Auto) 0 Baso # (Auto) 0 PFSH Medical History Asthma Elevated cholesterol GERD (gastroesophageal reflux disease) Glaucoma Hearing loss Hypothyroidism Melanoma Surgical History History of total right hip arthroplasty (10/02/17) Hx of Achilles tendon repair Hx of tonsillectomy Status post cataract extraction of both eyes with insertion of intraocular lens Social History household members: spouse Smoking Status: Former smoker alcohol intake: current Assessment & Plan Assessment and plan (1) Acute appendicitis: Status: Acute Plan Continue drain until output is thin and clear and minimal volume Continue antibiotics Time Spent With Patient Critical Care time: I spent a total of [] minutes of critical care time on this patient's care today; this time is exclusive of procedural time.
[2021-10-02] MEDS: OXYCODONE IR 5 MG TABLET PO (16:36)
[2021-10-02] MEDS: ACETAMINOPHEN 325 MG TABLET 975 MG PO ×2 (16:36→21:21)
--- NOTE | 2021-10-02 16:42 | PC.NURSE ---
Day shift: Pt ambulating in halls this afternoon with her Spouse and tolerating well. She had a 2 hour nap and woke up to void and c/o pain in her groin area. She said that it does not hurt to void though. Given pain meds per MAR at this time. Lap dressings remain CDI. LISA drain to suction with approx 140mls serosang output in the last 10 hours.
[2021-10-03] VITALS (9 sets, daily range): BP systolic 137–179; BP diastolic 69–81; PULSE 64–81; RESP 12–18; TEMP 36.3–36.7; O2SAT 94–97
[2021-10-03] MEDS: PIPERACILLIN/TAZO 3.375 GM in SODIUM CHLORIDE 0.9% 100 ML IV ×3 (05:40→20:23)
[2021-10-03 05:57] LABS: Add Manual Diff / Slide Review NO; Basophils Absolute Auto 0 /uL (0-100); Basophils Percent Auto 0.2 % (0-2); Eosinophils Absolute Auto 100 /uL (0-450); Eosinophils Percent Auto 1.8 % (2-4); Hematocrit 33.4 % (36-46); Hemoglobin 11.4 g/dL (12.0-16.0); Lymphocytes Absolute Auto 500 /uL (1100-4500); Mean Corpuscular HGB Conc 34.1 % (30-36); Mean Corpuscular Hemoglobin 30.2 PG (26-34); Mean Corpuscular Volume 88.4 fL (80-100); Monocytes Absolute Auto 500 /uL (0-900); Monocytes Percent Auto 8.9 % (3-14); Neutrophils Absolute Auto 4700 /uL (1500-7000); Neutrophils Percent Auto 81.1 % (50-75); Platelet Count 288 X10^3/uL (150-400); Red Blood Cell Count 3.77 X10^6/uL (4.0-5.2); Red Cell Distribution Width 13.9 % (11.6-14.8); White Blood Cell Count 5.8 X10^3/uL (4.5-11.0)
[2021-10-03] MEDS: ENOXAPARIN 40 MG/0.4 ML SYRINGE SUBCUT (07:25)
[2021-10-03] MEDS: KETOROLAC 30 MG/ML VIAL 15 MG IV (07:25)
[2021-10-03] MEDS: SODIUM CHLORIDE 0.9% FLUSH 10 ML IV ×2 (07:27→20:23)
[2021-10-03] MEDS: OXYCODONE IR 5 MG TABLET PO ×4 (09:37→21:47)
[2021-10-03] MEDS: ACETAMINOPHEN 325 MG TABLET 975 MG PO ×3 (09:37→21:47)
--- NOTE | 2021-10-03 12:03 | PM.PN.1 ---
Subjective Subjective Date Patient Seen: 10/03/21 Time Patient Seen: 12:03 Interval history: Emi developed sudden onset new lower abdominal point pain this morning. She describes the pain as sharp, severe and radiating through both groin areas into her thighs. Feels the urge to void and wonders if she has a UTI. She has tolerated her diet and is passing flatus. Exam Vital Signs (past 8 hours): - 10/03/21 05:17 10/03/21 07:33 10/03/21 08:02 Temperature 97.3 F L 97.9 F Pulse Rate 81 77 Respiratory Rate 18 16 Blood Pressure 157/73 H 179/76 H Pulse Oximetry 94 96 96 Oxygen Delivery Method Room Air Oxygen Flow Rate 0 10/03/21 11:55 Temperature Pulse Rate Respiratory Rate Blood Pressure Pulse Oximetry 96 Oxygen Delivery Method Room Air Oxygen Flow Rate Oxygen Delivery Method Room Air Oxygen Flow Rate 0 Narrative Exam Narrative: Abdomen is soft with tenderness in the lower quadrants Drain output is slightly more clear and thinner than yesterday but still rather murky Objective Labs Result Diagrams: 10/03/21 05:41 09/29/21 19:40 Labs: Laboratory Results - last 24 hr 10/03/21 05:41 WBC 5.8 RBC 3.77 L Hgb 11.4 L Hct 33.4 L MCV 88.4 MCH 30.2 MCHC 34.1 RDW 13.9 Plt Count 288 Neut % (Auto) 81.1 H Lymph % (Auto) 8.0 L [place] % (Auto) 8.9 Eos % (Auto) 1.8 L Baso % (Auto) 0.2 Neut # (Auto) 4700 Lymph # (Auto) 500 L [place] # (Auto) 500 Eos # (Auto) 100 Baso # (Auto) 0 PFSH Medical History (Updated 10/02/21 @ 12:43 by Yariel Morales MD) Asthma Elevated cholesterol GERD (gastroesophageal reflux disease) Glaucoma Hearing loss Hypothyroidism Melanoma Surgical History History of total right hip arthroplasty (10/02/17) Hx of Achilles tendon repair Hx of tonsillectomy Status post cataract extraction of both eyes with insertion of intraocular lens Social History household members: spouse Smoking Status: Former smoker alcohol intake: current Assessment & Plan Assessment and plan (1) Acute appendicitis: Status: Acute Plan Check UA to rule out urinary tract infection Continue drain as the output is still rather murky and high-volume Time Spent With Patient Critical Care time: I spent a total of [] minutes of critical care time on this patient's care today; this time is exclusive of procedural time.
--- NOTE | 2021-10-03 12:08 | CM.DPC ---
ERICP Cont: DCP spoke with RN and per Dr. Morales, pt will stay another night as pt states she is having some lower abdominal pain and not feeling good. Pt concerned she might have UTI and Dr. Morales placed order for UA. ADJ
[2021-10-03 12:22] LABS: Appearance Urine UA CLEAR; Bilirubin Urine UA NEGATIVE (NEGATIVE); Color Urine UA YELLOW; Glucose Urine UA NEGATIVE (Negative); Ketones Urine UA NEGATIVE (NEGATIVE); Leukocyte Esterase Urine UA NEGATIVE (NEGATIVE); Nitrite Urine UA NEGATIVE (Negative); Occult Blood Urine UA 3+ (Negative); Protein Urine UA TRACE (Negative); Specific Gravity Urine UA <=1.005 (1.000-1.035); Urobilinogen Urine UA 0.2 E.U./dL (0.2)
[2021-10-03 12:26] LABS: Amorphous Sediment Urine 1+; Bacteria Urine None Seen; Culture Indicated Urine Cult Not Indicated; RBC Urine 1-5/HPF (0-5/HPF); Squamous Epithelial Cell Urine 0-1 /HPF (0-5/HPF); WBC Urine 0-1/HPF (0-5/HPF)
--- NOTE | 2021-10-03 12:48 | PC.NURSE ---
Day shift: This senior mortgage underwriter in no longer RN for this Pt. information assoc [employer] is taking over care at this time.
[2021-10-04] VITALS: O2SAT 97
[2021-10-04] MEDS: ONDANSETRON 4 MG/2 ML INJ IV (01:12)
[2021-10-04 04:00] VITALS: O2SAT 97
[2021-10-04] MEDS: PIPERACILLIN/TAZO 3.375 GM in SODIUM CHLORIDE 0.9% 100 ML IV (04:44)
[2021-10-04] MEDS: ACETAMINOPHEN 325 MG TABLET 975 MG PO (05:49)
[2021-10-04 06:19] LABS: Add Manual Diff / Slide Review NO; Basophils Absolute Auto 0 /uL (0-100); Basophils Percent Auto 0.5 % (0-2); Eosinophils Absolute Auto 300 /uL (0-450); Eosinophils Percent Auto 4.4 % (2-4); Hematocrit 31.4 % (36-46); Hemoglobin 10.6 g/dL (12.0-16.0); Lymphocytes Absolute Auto 900 /uL (1100-4500); Lymphocytes Percent Auto 12.8 % (25-40); Mean Corpuscular HGB Conc 33.7 % (30-36); Mean Corpuscular Hemoglobin 29.8 PG (26-34); Mean Corpuscular Volume 88.3 fL (80-100); Monocytes Absolute Auto 700 /uL (0-900); Monocytes Percent Auto 10.4 % (3-14); Neutrophils Absolute Auto 5200 /uL (1500-7000); Neutrophils Percent Auto 71.9 % (50-75); Platelet Count 296 X10^3/uL (150-400); Red Blood Cell Count 3.56 X10^6/uL (4.0-5.2); Red Cell Distribution Width 14.1 % (11.6-14.8); White Blood Cell Count 7.2 X10^3/uL (4.5-11.0)
[2021-10-04 06:30] VITALS: BP 163/80; PULSE 76; RESP 14; TEMP 36.9; O2SAT 96
[2021-10-04 07:39] VITALS: BP 145/72; PULSE 63; RESP 14; TEMP 36.4; O2SAT 95
[2021-10-04] MEDS: OXYCODONE IR 5 MG TABLET PO (09:35)
[2021-10-04] MEDS: SODIUM CHLORIDE 0.9% FLUSH 10 ML IV (09:41)
[2021-10-04] MEDS: ENOXAPARIN 40 MG/0.4 ML SYRINGE SUBCUT (09:41)
--- NOTE | 2021-10-04 10:58 | CM.DPC ---
Per MD, pt is medically stable for discharge. Pt to discharge home via spouse POV. Chitra Pathak RN/DCP
--- NOTE | 2021-10-04 12:22 | PC.NURSE ---
Discharge Note Patient A&O, VSS, RA, no complaints of pain/discomfort. Discharge packet reviewed with patient, all questions/concerns addressed. PIV/midline discontinued. Drain training completed with patient and spouse. Patient able to dress self and pack all belongings. 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 Patient taken down via wheelchair to POV>
--- NOTE | 2021-10-14 12:12 | P.DS_ITS ---
History of Present Illness History of Present Illness Chief complaint: Nausea, ABD pain, Sent from [facility] Discharge Providers Provider Date of admission: 09/30/21 06:48 Discharge Date: 10/04/21 Primary care physician: Ford Bello MD Discharge provider: Yariel Morales MD Summary Hospital Course Discharge Diagnosis: Perforated appendicitis Hospital Course: The patient was admitted for acute appendicitis and underwent a laparoscopic appendectomy with findings of a perforated appendicitis. Drain was left in place. Following surgery she gradually regained bowel function and her jean carlos etite. Her drain output remained high and murky and she was discharged home with a drain on October 04 with instructions to follow-up with Dr. Birch. Exam Vital Signs (past 8 hours): Oxygen Delivery Method Room Air Oxygen Flow Rate 0 Objective Labs Result Diagrams: 10/04/21 06:12 09/29/21 19:40 PFS Medical History (Updated 10/08/21 @ 15:49 by Keron Birch MD) Asthma Elevated cholesterol GERD (gastroesophageal reflux disease) Glaucoma Hearing loss Hypothyroidism Melanoma Surgical History History of total right hip arthroplasty (10/02/17) Hx of Achilles tendon repair Hx of tonsillectomy Status post cataract extraction of both eyes with insertion of intraocular lens Social History household members: spouse Smoking Status: Former smoker alcohol intake: current Discharge Plan Discharge Plan Patient Disposition: Home Discharge orders & Medications Prescriptions: New amoxicillin-pot clavulanate [Augmentin] 500-125 mg tablet 1 tab PO BID Qty: 10 0RF hydrocodone-acetaminophen 5-325 mg tablet 1 tab PO Q8H PRN (Reason: pain) Qty: 7 0RF Continued fluticasone propionate 50 mcg/actuation spray,suspension See Rx Instructions intranasal DAILY Qty: 16 2RF Rx Instructions: spray into mouth and swallow daily. lisinopril 40 mg tablet 40 mg PO DAILY aspirin [Adult Low Dose Aspirin] 81 mg tablet,delayed release (DR/EC) 81 mg PO DAILY Caltrate 600 plus D 600 mg (1,500 mg)-800 unit tablet,chewable 1 tab PO BID cyanocobalamin (vitamin B-12) 2,500 mcg tablet 2,500 mcg PO DAILY cholecalciferol (vitamin D3) [Vitamin D3] 50 mcg (2,000 unit) capsule 50 mcg PO DAILY latanoprost 0.005 % Drops 1 drp EYE-BOTH BEDTIME omeprazole 40 mg Capsule,Delayed Release(Dr/Ec) 40 mg PO QAM trazodone 100 mg Tablet 100 - 150 mg PO BEDTIME PRN (Reason: Sleep) levothyroxine [Synthroid] 50 mcg Tablet 50 mcg PO DAILY No Action ondansetron HCl 4 mg tablet 4 mg PO Q8H Qty: 30 0RF Adult 50 Plus Probiotic 4 billion cell capsule 4,000 mmu cells PO DAILY Qty: 30 0RF Rx Instructions: administer with a meal Follow up/Referrals: Ford Bello MD [Primary Care Provider] - Visit Report/Discharge Packet Instructions: Appendicitis, DI for an Appendectomy, DI for Kevin-Vargas Drains Discharge Data Primary Care Provider: Ford Bello Attending Provider: Keron Birch
== END 2021-10-04 12:15 | disposition home or self-care (01) ==
LOC: ED 22:30 → AC 09-30 07:34
PROVIDERS: Surgery; Admitting Provider Surgery; Emergency Provider Emergency Medicine; PCP Family Medicine; Referring Provider Emergency Medicine; Visit Provider Surgery
PROC: 0DTJ4ZZ Resection of Appendix, Percutaneous Endoscopic Approach (ICD-10-PCS; CPT 44970; principal; 2021-09-30 12:00)
DX: K35.32 Acute appendicitis with perforation, localized peritonitis, and gangrene, without abscess (principal); K21.9 Gastro-esophageal reflux disease without esophagitis; J45.909 Unspecified asthma, uncomplicated; E03.9 Hypothyroidism, unspecified; Z20.822 Contact with and (suspected) exposure to COVID-19
CPT/HCPCS: 44970; 36415; 74177; 80053; 81001; 81003; 81015; 83605; 83690; 85025; 87040; 87635; 93005; 96361; 96365; 96366; 96372; 96375; 96376; 99219; 99284; C9803; G0378; J1100; J1170; J1642; J1650; J1885; J2405; J2543; J2704; J3010; Q9967

== ENCOUNTER → 2021-10-08 14:32 | Outpatient (CLI) | payer MEDICARE, SELFPAY ==
[2021-10-08 14:31] VITALS: BMI 24.7
[2021-10-08 15:32] LABS: Add Manual Diff / Slide Review NO; Basophils Absolute Auto 0 /uL (0-100); Basophils Percent Auto 0.3 % (0-2); Eosinophils Absolute Auto 100 /uL (0-450); Eosinophils Percent Auto 1.2 % (2-4); Hematocrit 36.2 % (36-46); Hemoglobin 12.6 g/dL (12.0-16.0); Lymphocytes Absolute Auto 2100 /uL (1100-4500); Lymphocytes Percent Auto 20.4 % (25-40); Mean Corpuscular HGB Conc 34.8 % (30-36); Mean Corpuscular Hemoglobin 30.2 PG (26-34); Mean Corpuscular Volume 86.9 fL (80-100); Monocytes Absolute Auto 900 /uL (0-900); Monocytes Percent Auto 9.3 % (3-14); Neutrophils Absolute Auto 7000 /uL (1500-7000); Neutrophils Percent Auto 68.8 % (50-75); Platelet Count 504 X10^3/uL (150-400); Red Blood Cell Count 4.16 X10^6/uL (4.0-5.2); Red Cell Distribution Width 14.3 % (11.6-14.8); White Blood Cell Count 10.1 X10^3/uL (4.5-11.0)
== END ==
PROVIDERS: PCP Family Medicine; Referring Provider Surgery; Visit Provider Surgery
DX: K35.80 Unspecified acute appendicitis (principal)
CPT/HCPCS: 36415; 85025

== ENCOUNTER → 2021-12-09 08:16 | Outpatient (CLI) | payer MEDICARE, SELFPAY ==
[2021-10-08 14:31] VITALS: BMI 24.7
--- NOTE | 2021-12-09 | DI.MG.S_ITS ---
BILATERAL DIGITAL SCREENING MAMMOGRAM 3D/2D WITH CAD: 12/09/2021 CLINICAL: Routine screening. Family history of breast cancer. Comparison is made to exams dated: 11/28/2020 mammogram, 11/21/2019 mammogram, and 06/02/2018 mammogram - [facility]. There are scattered areas of fibroglandular density in both breasts (category b / 25%-50% glandular tissue). Current study was also evaluated with a Computer Aided Detection (CAD) system. There are benign calcifications in both breasts. No significant masses, calcifications, or other findings are seen in either breast. There has been no significant interval change. IMPRESSION: BENIGN There is no mammographic evidence of malignancy. A 1 year screening mammogram is recommended. Based on the Tyrer Cuzick model (a risk assessment model) the patient's lifetime risk is 2.0% and her 10 year risk is 0.0%. According to the ACR, ACS, and NCCN guidelines, an annual breast MRI exam along with mammogram is recommended if the patient's lifetime risk is 20% or greater. This exam was interpreted at Station ID: [id number]. NOTE: For mammograms, a report in lay terms will be sent to the patient. Approximately 15% of breast malignancies will not be visualized mammographically. In the management of a palpable breast mass, a negative mammogram must not discourage biopsy of a clinically suspicious lesion. Electronically Signed By: Marco Antonio Contreras M.D., jr/rommel:12/09/2021 12:42:30 letter sent: Normal Exam ACR BI-RADS Category 2: Benign Finding(s) 3342F
== END ==
PROVIDERS: PCP Family Medicine; Referring Provider Family Medicine; Visit Provider Family Medicine
DX: Z12.31 Encounter for screening mammogram for malignant neoplasm of breast (principal); Z80.3 Family history of malignant neoplasm of breast
CPT/HCPCS: 77063; 77067

== ENCOUNTER → 2022-01-24 07:38 | Outpatient (CLI) | payer MEDICARE, OTHER, SELFPAY ==
[2021-10-08 14:31] VITALS: BMI 24.7
[2022-01-24 09:47] LABS: Alanine Aminotransferase 15 IU/L (<35); Albumin 4.1 g/dL (3.5-5.0); Albumin Globulin Ratio 1.5 (1.0-2.8); Alkaline Phosphatase 50 U/L (38-126); Aspartate Aminotransferase 19 IU/L (14-36); BUN Creatinine Ratio 15.2 (6-22); Bilirubin Total 0.4 mg/dL (0.2-1.3); Blood Urea Nitrogen 12 mg/dL (7-17); Calcium 9.4 mg/dL (8.4-10.2); Carbon Dioxide 28 mmol/L (22-32); Chloride 103 mmol/L (98-107); Cholesterol 228 mg/dL (140-199); Estimated Glomerular Filt Rate > 60 mL/min (>60); Globulin 2.8 g/dL (1.7-4.1); Glucose 88 mg/dL (80-110); HDL Cholesterol 60 mg/dL (40-60); HEMOLYSIS < 15 (0-50); LDL Cholesterol Calculated 146 mg/dL (<100); Potassium 4.4 mmol/L (3.4-5.1); Sodium 139 mmol/L (137-145); Total Protein 6.9 g/dL (6.3-8.2); Triglycerides 109 mg/dL (35-150)
[2022-01-24 10:12] LABS: Thyroid Stimulating Hormone 1.92 uIU/mL (0.47-4.68)
== END ==
PROVIDERS: PCP Family Medicine; Referring Provider Family Medicine; Visit Provider Family Medicine
DX: I10 Essential (primary) hypertension (principal); E03.9 Hypothyroidism, unspecified
CPT/HCPCS: 36415; 80053; 80061; 84443

== ENCOUNTER → 2022-08-17 | Outpatient (CLI) | payer MEDICARE, OTHER, SELFPAY ==
[2021-10-08 14:31] VITALS: BMI 24.7
--- NOTE | 2022-08-17 | DI.RAD.S_ITS ---
Bone Density Report Name: TATYANA MATIAS Age: 76 Sex: Female Ethnicity: White Date of : 1945 Indication: postmenopausal; screening for osteoporosis; Referring Provider: REYNALDO VELASQUEZ Study: Bone densitometry was performed. Exam Date: August 17, 2022 Accession number: [id number] Bone Density: Region BMD T-score Z-score Classification AP Spine(L1, L2, L4) 1.247 1.9 4.5 Normal Total Forearm (Left) 0.429 -2.8 0.0 Osteoporosis 1/3 Forearm (Left) 0.582 -1.9 1.0 Osteopenia UD Forearm (Left) 0.273 -2.9 -0.9 Osteoporosis World Health Organization criteria for BMD impression classify patients as: Normal (T-score at or above -1.0), Osteopenia (T-score between -1.0 and -2.5), or Osteoporosis (T-score at or below -2.5). Previous Exams: -- Region Exam Age BMD T-score BMD Change BMD Change Date g/cm2 vs Baseline vs Previous -- AP Spine (L1-L2,L4) 08/17/2022 76 1.247 1.9 0.039 (3.2%)# 0.039 (3.2%)# 04/16/2020 74 1.208 1.6 -- *Denotes significance at 95% confidence level, LSC for AP Spine = 0.022 g/cm2 # Denotes dissimilar scan types or analysis methods Impression: The patient has normal bone mass. No significant bone loss was observed. Discussion: LOW RISK OF FRACTURE; BONE DENSITY IS WELL ABOVE THE MINIMUM DESIRABLE LEVEL AND ABOVE AVERAGE FOR AGE AND SEX AT ALL SKELETAL SITES TESTED. This person's bone density is above expected limits for age and sex. This is rarely clinically significant, but should be pursued if there are significant musculoskeletal complaints. The patient should follow a healthful lifestyle (good nutrition with adequate calcium and vitamin D, and appropriate weight-bearing exercise). Follow-Up: Consider repeating this study in 5 years or sooner if there is some new clinical indication. Reported by: SOREN LARA M.D. on 08/17/2022 9:57:00 AM.
== END ==
LOC: RAD 09:33
PROVIDERS: PCP Family Medicine; Referring Provider Family Medicine; Visit Provider Family Medicine
DX: Z13.820 Encounter for screening for osteoporosis; Z78.0 Asymptomatic menopausal state
CPT/HCPCS: 77080; 77081

== ENCOUNTER → 2022-12-10 10:42 | Outpatient (CLI) | payer MEDICARE, OTHER, SELFPAY ==
[2021-10-08 14:31] VITALS: BMI 24.7
--- NOTE | 2022-12-10 10:44 | DI.MG.S_ITS ---
BILATERAL DIGITAL SCREENING MAMMOGRAM 3D/2D WITH CAD: 12/10/2022 CLINICAL: Routine screening. Family history of breast cancer. Comparison is made to exams dated: 12/09/2021 mammogram, 11/28/2020 mammogram, and 11/21/2019 mammogram - [facility]. There are scattered areas of fibroglandular density in both breasts (category b / 25%-50% glandular tissue). Current study was also evaluated with a Computer Aided Detection (CAD) system. There are benign calcifications in both breasts. No significant masses, calcifications, or other findings are seen in either breast. There has been no significant interval change. IMPRESSION: BENIGN There is no mammographic evidence of malignancy. A 1 year screening mammogram is recommended. Based on the Tyrer Cuzick model (a risk assessment model) the patient's lifetime risk is 1.8% and her 10 year risk is 0.0%. According to the ACR, ACS, and NCCN guidelines, an annual breast MRI exam along with mammogram is recommended if the patient's lifetime risk is 20% or greater. This exam was interpreted at Station ID: [id number]. NOTE: For mammograms, a report in lay terms will be sent to the patient. Approximately 15% of breast malignancies will not be visualized mammographically. In the management of a palpable breast mass, a negative mammogram must not discourage biopsy of a clinically suspicious lesion. Electronically Signed By: Dandre cloud/rommel:12/10/2022 11:15:28 letter sent: Normal Exam ACR BI-RADS Category 2: Benign Finding(s) 3342F
== END ==
PROVIDERS: PCP Family Medicine; Referring Provider Family Medicine; Visit Provider Family Medicine
DX: Z12.31 Encounter for screening mammogram for malignant neoplasm of breast (principal); Z80.3 Family history of malignant neoplasm of breast
CPT/HCPCS: 77063; 77067

== ENCOUNTER → 2023-01-26 09:16 | Outpatient (CLI) | payer MEDICARE, OTHER, SELFPAY ==
[2021-10-08 14:31] VITALS: BMI 24.7
--- NOTE | 2023-01-26 | DI.MRI.S_ITS ---
PROCEDURE: MR LUMBAR SPINE WO CON INDICATIONS: OSTEOPOROSIS/Sacroiliitis TECHNIQUE: Noncontrast sagittal T1 spin echo and T2 fast echo, sagittal STIR, and T2 fast spin echo through the lumbar spine. In cases with scoliosis, additional coronal T2 fast spin echo may be performed. COMPARISON: [facility], CT, CT ABDOMEN PELVIS W CON, 09/29/2021, 21:03. FINDINGS: Image quality: This examination is limited by involuntary motion artifact. Alignment and Curvature: Mild dextroconvex scoliotic curvature is seen. There is minimal anterolisthesis at T12-L1. Mild retrolisthesis is seen at L1-L2 and L2-L3. There is minimal retrolisthesis at L3-L4. Bone Marrow: Marrow is of normal overall signal. No acute vertebral body compression fractures. Spinal Cord: Conus medullaris terminates at the L1 level. Visualized cord demonstrates normal signal and size. Paraspinous Soft Tissues: No paravertebral masses. T12-L1: Moderate loss of disc height is seen. Loss of disc signal is seen. Reactive marrow endplate changes are seen which are hypointense on T1-weighted imaging and hyperintense on T2 weighted imaging, which is most consistent with edema (Modic type I changes). Moderate disc bulge is seen, which is eccentric to the right side. There is moderate to prominent right-sided and moderate left-sided facet hypertrophy. There is hypertrophy of the posterior elements seen on the right, which leads to moderate to severe central canal narrowing, as on series 7, image 4. A portion of this may be related to an irregular synovial cyst, although no significant T2 hyperintensity can be seen. There is at least moderate left-sided and moderate to severe right-sided neural foraminal narrowing. There is a degree of compression seen upon the exiting nerve roots. L1-L2: Moderate to severe loss of disc height and disc signal can be seen. Reactive marrow endplate changes are seen, which are hyperintense on T1-weighted and T2-weighted imaging and most consistent with fatty metaplasia (Modic type II changes). Moderate disc bulge is seen, which is eccentric to the left. There is a central disc osteophyte protrusion. Mild facet joint hypertrophy is seen. There is at least moderate left-sided and moderate to severe right-sided neural foraminal narrowing. There is a degree of compression seen upon the exiting nerve roots. Moderate central canal narrowing is seen. L2-L3: At least moderate loss of disc height and disc signal can be seen. Reactive marrow endplate changes are seen, which demonstrate mixed T1 weighted and T2-weighted signal, and are attributed to a combination of edema and fatty metaplasia (Modic type I and Modic type II changes). Moderate generalized disc bulge is seen. There is a central disc osteophyte protrusion. Mild to moderate facet hypertrophy is seen. There is moderate to severe bilateral neural foraminal narrowing seen, with an associated a degree of compression seen upon the exiting nerve roots. Moderate central canal narrowing is seen. L3-L4: Moderate to severe loss of disc height and disc signal can be seen. At least moderate disc bulge is seen, which is eccentric to the left. There is a superimposed central disc protrusion. Moderate to prominent facet hypertrophy is seen. There is moderate to severe bilateral neural foraminal narrowing seen, with an associated a degree of compression seen upon the exiting nerve roots. At least moderate central canal narrowing is seen. L4-L5: Dzuo-hn-vdhovoav loss of disc height and disc signal can be seen. Reactive marrow endplate changes are seen which are hypointense on T1-weighted imaging and hyperintense on T2 weighted imaging, which is most consistent with edema (Modic type I changes). At least moderate disc bulge is seen, with a central disc protrusion. There is at least moderate right-sided and moderate left-sided facet hypertrophy. There is moderate to severe right-sided and at least moderate left-sided neural foraminal narrowing. There is a degree of compression seen upon the exiting nerve roots. At least moderate central canal narrowing is seen. L5-S1: The disc height is well-preserved. Loss of disc signal is seen at this level. Mild generalized disc bulge is seen. At least moderate facet hypertrophy is seen. Moderate bilateral neural foraminal narrowing is seen. Moderate central canal narrowing is seen. IMPRESSION: Multiple levels of prominent lumbar spine degenerative change can be seen. Dictated by: Andre Hubbard M.D. on 01/26/2023 at 15:40 Approved by: Andre Hubbard M.D. on 01/26/2023 at 15:46
== END ==
PROVIDERS: PCP Family Medicine; Referring Provider Family Medicine; Visit Provider Family Medicine
DX: M47.817 Spondylosis without myelopathy or radiculopathy, lumbosacral region (principal); M47.816 Spondylosis without myelopathy or radiculopathy, lumbar region; M46.1 Sacroiliitis, not elsewhere classified; M81.0 Age-related osteoporosis without current pathological fracture
CPT/HCPCS: 72148

== ENCOUNTER → 2023-04-11 12:58 | Outpatient (CLI) | payer MEDICARE, OTHER, SELFPAY ==
[2021-10-08 14:31] VITALS: BMI 24.7
--- NOTE | 2023-04-11 13:01 | DI.MRI.S_ITS ---
PROCEDURE: MR LUMBAR SPINE WO CON INDICATIONS: Spinal stenosis, lumbar region TECHNIQUE: Noncontrast sagittal T1 spin echo and T2 fast echo, sagittal STIR, and T2 fast spin echo through the lumbar spine. In cases with scoliosis, additional coronal T2 fast spin echo may be performed. COMPARISON: [facility], MR, MR LUMBAR SPINE WO CON, 01/26/2023, 9:31. FINDINGS: Image quality: This examination is limited by involuntary motion artifact. Alignment and Curvature: Mhxc-dd-[id number] dextroconvex lumbar scoliosis is seen. Mild retrolisthesis can be seen at L1-L2, L2-L3, and L3-L4. Bone Marrow: Marrow is of normal overall signal. Fatty metaplasia can again be seen within the upper lumbar spine. No acute vertebral body compression fractures. Spinal Cord: Conus medullaris terminates at the L1 level. Visualized cord demonstrates normal signal and size. Paraspinous Soft Tissues: No paravertebral masses. T12-L1: Ocdn-mh-nnahtuqv loss of disc height and disc signal can be seen. Reactive marrow endplate changes are seen which are hypointense on T1-weighted imaging and hyperintense on T2 weighted imaging, which is most consistent with edema (Modic type I changes). At least moderate disc bulge is seen, which is eccentric to the right. At least moderate facet hypertrophy can be seen. Hypertrophy of the posterior elements can be seen on the right, as on series 7, image 3. There is at least moderate right-sided and moderate left-sided neural foraminal narrowing. Moderate to severe central canal narrowing is seen, as on series 7, image 3. When comparison is made with the prior images, these findings are similar. L1-L2: At least moderate loss of disc height and disc signal can be seen. Moderate generalized disc bulge is seen. There is a central disc osteophyte protrusion seen. There is moderate right-sided and at least moderate left-sided neural foraminal narrowing. Moderate central canal narrowing is seen. When comparison is made with the prior images, these findings are similar. L2-L3: At least moderate loss of disc height and disc signal can be seen. At least moderate disc osteophyte complex is seen, which is eccentric to the left. There is a central/left disc protrusion. At least moderate bilateral neural foraminal narrowing can be seen. A minimal degree of compression can be seen upon the exiting L2 nerve roots. Mild central canal narrowing is seen. When comparison is made with the prior images, these findings are similar. L3-L4: At least moderate loss of disc height and disc signal can be seen. At least moderate disc bulge is seen, which is eccentric to the left. At least moderate facet hypertrophy is seen. Associated hypertrophy of the ligamentum flavum can be seen. There is at least moderate right-sided and moderate to severe left-sided neural foraminal narrowing. There is a degree of compression seen upon the exiting nerve roots. Moderate central canal narrowing is seen. No significant change from the prior. L4-L5: Mild loss of disc height is seen. Loss of disc signal is seen. Moderate disc bulge is seen, which is eccentric to the right. Moderate facet joint hypertrophy is seen. Associated hypertrophy of the ligamentum flavum can be seen. There is moderate left-sided and moderate to severe right-sided neural foraminal narrowing. There is a degree of compression seen upon the exiting right L4 nerve root. Moderate central canal narrowing is seen. When comparison is made with the prior images, these findings are similar. L5-S1: The disc height and disk signal are relatively well-preserved. Mild generalized disc bulge is seen. At least moderate facet hypertrophy can be seen, right worse than left. Moderate bilateral neural foraminal narrowing is seen. Mild to moderate central canal narrowing is seen. When comparison is made with the prior images, these findings are similar. IMPRESSION: Multiple levels of lumbar spine degenerative change can again be seen, without significant progression compared to the prior MRI. Dictated by: Andre Hubbard M.D. on 04/11/2023 at 15:23 Approved by: Andre Hubbard M.D. on 04/11/2023 at 15:31
== END ==
PROVIDERS: PCP Family Medicine; Referring Provider Physical Medicine & Rehabilitation Pain Medicine; Visit Provider Physical Medicine & Rehabilitation Pain Medicine
DX: M48.062 Spinal stenosis, lumbar region with neurogenic claudication (principal); M47.816 Spondylosis without myelopathy or radiculopathy, lumbar region; M47.817 Spondylosis without myelopathy or radiculopathy, lumbosacral region
CPT/HCPCS: 72148

== ENCOUNTER → 2023-04-13 15:06 | Outpatient (CLI) | payer MEDICARE, OTHER, SELFPAY ==
[2021-10-08 14:31] VITALS: BMI 24.7
[2023-04-13 18:31] LABS: BUN Creatinine Ratio 20.5 (6-22); Blood Urea Nitrogen 17 mg/dL (7-17); Calcium 10.1 mg/dL (8.4-10.2); Carbon Dioxide 25 mmol/L (22-32); Chloride 98 mmol/L (98-107); Estimated Glomerular Filt Rate > 60 mL/min (>60); Glucose 107 mg/dL (80-110); HEMOLYSIS 16 (0-50); Potassium 4.2 mmol/L (3.4-5.1); Sodium 133 mmol/L (137-145)
[2023-04-13 18:36] LABS: Add Manual Diff / Slide Review NO; Basophils Absolute Auto 0 /uL (0-100); Basophils Percent Auto 0.5 % (0-2); Eosinophils Absolute Auto 100 /uL (0-450); Eosinophils Percent Auto 1.8 % (2-4); Hematocrit 38.1 % (36-46); Hemoglobin 13.1 g/dL (12.0-16.0); Lymphocytes Absolute Auto 2100 /uL (1100-4500); Lymphocytes Percent Auto 27.2 % (25-40); Mean Corpuscular HGB Conc 34.4 % (30-36); Mean Corpuscular Hemoglobin 30.3 PG (26-34); Mean Corpuscular Volume 88.3 fL (80-100); Monocytes Absolute Auto 600 /uL (0-900); Monocytes Percent Auto 7.5 % (3-14); Neutrophils Absolute Auto 5000 /uL (1500-7000); Platelet Count 334 X10^3/uL (150-400); Red Blood Cell Count 4.32 X10^6/uL (4.0-5.2); White Blood Cell Count 7.9 X10^3/uL (4.5-11.0)
== END ==
LOC: LAB 15:07
PROVIDERS: PCP Family Medicine; Referring Provider Orthopaedic Surgery Orthopaedic Surgery of the Spine; Visit Provider Orthopaedic Surgery Orthopaedic Surgery of the Spine
DX: Z01.818 Encounter for other preprocedural examination (principal); Z01.812 Encounter for preprocedural laboratory examination
CPT/HCPCS: 36415; 80048; 85025; 93005; 93010

== ENCOUNTER 2023-05-08 06:03 | Day surgery (SDC) | payer MEDICARE, OTHER, SELFPAY ==
[2021-10-08 14:31] VITALS: BMI 24.7
[2023-05-04 15:02] VITALS: BMI 22.8
[2023-05-08] VITALS (8 sets, daily range): BP systolic 132–148; BP diastolic 64–88; PULSE 88–117; RESP 12–22; TEMP 36.1–36.8; O2SAT 94–98; BMI 22.8
[2023-05-08] MEDS: LACTATED RINGERS 1,000 ML 84 ML IV ×2 (06:58→09:28)
--- NOTE | 2023-05-08 07:37 | SUR.OPER ---
Prone on spine table, head in foam head support, padded chest and pelvic supports, gel pad at knees, lower legs supported by pillows; nipples, genitalia and toes free of pressure, arms secured on foam padded arm boards at <90 degrees abduction. Tape over blanket at thigh secured to table.
--- NOTE | 2023-05-08 07:41 | PM.PREOP ---
Pre-operative Note Interval Note History & Physical reviewed/Exam performed by Physician: Yes Changes to H&P: No
[2023-05-08] MEDS: CEFAZOLIN 2 GM/100 ML PREMIX 100 ML IV (08:17)
[2023-05-08] MEDS: BUPIVACAINE 0.25% (PF) 30 ML, EPINEPHrine 0.15 MG INJ (08:23)
--- NOTE | 2023-05-08 09:18 | PM.OP.1 ---
Operative Date/Time/Diagnoses Date of procedure: 05/08/23 Time of procedure: 07:45 Pre-op diagnosis: 1. T12-L1 spinal stenosis Post-op diagnosis: same Procedure & Clinicians Procedure: 1. T12-L1 laminectomy with facetecomy 2. Utilization of microsurgical technique and operating microscope Same procedure as scheduled: Yes Indications: Patient has been having chronic back pain and worsening lumbar radiculopathy. Patient was found to severe T12-L1 spinal stenosis due to large right-sided T12-L1 facet cyst causing compression on the spinal cord. Patient failed multiple conservative management with worsening pain weakness and numbness in her right lower extremity. Patient has been having difficulty performing activity of daily living. After discussing risks benefits of treatment options, patient elected proceed with surgery. Surgeon: Camilo Mulligan Nematology Teacher: Karen Muller Click Yes if Unassisted: No Anesthesia Type: General Operative Notes Closure Type: primary Specimen(s): none sent Estimated Blood Loss (mL): 5 Blood products transfused: none Procedure in detail: Patient was seen in the preoperative area. Risks and benefits of the surgery was discussed with the patient. Informed consent was obtained from the patient and placed in the chart. Surgical site was marked. Patient was taken to the operative room. General anesthesia was administered. Prophylactic antibiotic was given to the patient less than 30 min before the incision was made. Patient was placed into a prone position on the Kevin table. Patient's back was then prepped and draped in the sterile fashion. Time-out was performed at this time. Using AP and lateral C-arm imaging the interval between T12-L1 was identified and marked on patient's back. A 1 inch incision 1 in from midline was made on the right side. The fascia was incised in line with skin incision. Globus MARS retractors was placed inside the incision and docked onto the T12 lamina. Using microsurgical technique and operating microscope, a T12 laminectomy was performed using a Kerrison rongeur. Liagamentum flavum was resected at the site of the laminotomy. Either side of the dura was exposed. Right sided facetecomy was performed to further decompress the lateral recess. In order to properly decompress the epidural space and removing the facet cyst more than 50% of the T12-L1 facet on the right side was resected during the process of decompression. After the laminectomy and facetectomy was completed, the area medial lateral superior and inferior to the area of the laminectomy was inspected and explored using a micro curette. No other impinging structure was identified. The wound was then irrigated with sterile normal saline. 40 mg Depo-Medrol was placed into the epidural space. The deep fascia was closed with 1-0 Vicryl. The subcutaneous tissue was closed with 2-0 Vicryl. The skin was closed with 4-0 Monocryl. Patient tolerated the procedure well. There were no complications. Patient was transferred recovery room in stable condition. EMG SSEP and motor evoked potential was used to monitor patient's neurological status which was stable through entire procedure. The Operation could not have been safely performed without compromising the technical result or length of the procedure, without the assistance of a skilled surgical physician assistant. The surgical physician assistant was medically necessary for proper positioning, retraction and manipulation of instruments, proper exposure, surgical preparation, and manipulation of tissue. Complications: none Post-operative Condition: stable Disposition: PACU Plan for aftercare: Discharge to home
--- NOTE | 2023-05-08 09:25 | DI.RAD.S_ITS ---
PROCEDURE: XR LUMBAR SPINE 2-3V INDICATIONS: T12-L1 MICRODISCECTOMY TECHNIQUE: 2 views of the lumbar spine were acquired. COMPARISON: [facility], , -SPINE 2-3 VIEWS, 09/16/2014, 11:03. Findings and impression: T12-L1 intraoperative images were taken. There are degenerative changes. Please see operative note for full details. Dictated by: Chevy Solano M.D. on 05/08/2023 at 13:04 Approved by: Chevy Solano M.D. on 05/08/2023 at 13:05
[2023-05-08] MEDS: OXYCODONE/ACETAMINOPHEN 5/325 TABLET 1 TAB PO ×2 (09:49→10:58)
== END 2023-05-08 11:02 | disposition home or self-care (01) ==
PROVIDERS: PCP Family Medicine; Referring Provider Physical Medicine & Rehabilitation; Visit Provider Orthopaedic Surgery Orthopaedic Surgery of the Spine
PROC: (CPT 63046; principal; 2023-05-08 07:45)
DX: M48.04 Spinal stenosis, thoracic region (principal); M54.16 Radiculopathy, lumbar region
CPT/HCPCS: 63046; 72100; 76000; J0171; J0330; J0690; J1100; J2405; J2704; J2919; J3010

== ENCOUNTER → 2023-12-14 07:51 | Outpatient (CLI) | payer MEDICARE, OTHER, SELFPAY ==
[2021-10-08 14:31] VITALS: BMI 24.7
--- NOTE | 2023-12-14 | DI.MG.S_ITS ---
BILATERAL DIGITAL SCREENING MAMMOGRAM 3D/2D WITH CAD: 12/14/2023 CLINICAL: Routine screening. Family history of breast cancer. Comparison is made to exams dated: 12/10/2022 mammogram, 12/09/2021 mammogram, and 11/28/2020 mammogram - [facility]. There are scattered areas of fibroglandular density (category b / 25%-50% glandular tissue). Current study was also evaluated with a Computer Aided Detection (CAD) system. There are benign calcifications in both breasts. No significant masses, calcifications, or other findings are seen in either breast. There has been no significant interval change. IMPRESSION: BENIGN There is no mammographic evidence of malignancy. A 1 year screening mammogram is recommended. Based on the Tyrer Cuzick model (a risk assessment model) the patient's lifetime risk is 1.6% and her 10 year risk is 0.0%. According to the ACR, ACS, and NCCN guidelines, an annual breast MRI exam along with mammogram is recommended if the patient's lifetime risk is 20% or greater. This exam was interpreted at Station ID: [id number]. NOTE: For mammograms, a report in lay terms will be sent to the patient. Approximately 15% of breast malignancies will not be visualized mammographically. In the management of a palpable breast mass, a negative mammogram must not discourage biopsy of a clinically suspicious lesion. Electronically Signed By: Dandre cloud/rommel:12/15/2023 20:35:42 letter sent: Normal Exam ACR BI-RADS Category 2: Benign
== END ==
PROVIDERS: PCP Family Medicine; Referring Provider Family Medicine; Visit Provider Family Medicine
DX: Z12.31 Encounter for screening mammogram for malignant neoplasm of breast (principal); Z80.3 Family history of malignant neoplasm of breast
CPT/HCPCS: 77063; 77067

== ENCOUNTER → 2024-01-02 16:54 | Outpatient (CLI) | payer MEDICARE, OTHER, SELFPAY ==
[2021-10-08 14:31] VITALS: BMI 24.7
--- NOTE | 2024-01-02 16:56 | DI.MRI.S_ITS ---
PROCEDURE: MR LUMBAR SPINE WO CON INDICATIONS: radiculopathy TECHNIQUE: Noncontrast sagittal T1 spin echo and T2 fast echo, sagittal STIR, and T2 fast spin echo through the lumbar spine. In cases with scoliosis, additional coronal T2 fast spin echo may be performed. COMPARISON: [facility], CR, XR LUMBAR SPINE 2-3V, 05/08/2023, 7:21. [facility], MR, MR LUMBAR SPINE WO CON, 04/11/2023, 13:12. [facility], MR, MR LUMBAR SPINE WO CON, 01/26/2023, 9:31. FINDINGS: Image quality: Excellent. Alignment and Curvature: Mild grade 1 anterolisthesis is seen at L1-L2. There is mild retrolisthesis at L1-L2 and L2-L3, with minimal retrolisthesis at L3-L4 and at L4-L5. Bone Marrow: Marrow is of normal overall signal. At the L1 level, there is mild anterior wedge deformity seen, which is new compared to the prior MRI, with 15% loss of height anteriorly. Associated bone marrow edema can be seen at the superior endplate of L1. Spinal Cord: Conus medullaris terminates at the L1 level. Visualized cord demonstrates normal signal and size. Paraspinous Soft Tissues: No paravertebral masses. T12-L1: At least moderate loss of disc height and disc signal can be seen. Reactive marrow endplate changes are seen which are hypointense on T1-weighted imaging and hyperintense on T2 weighted imaging, which is most consistent with edema (Modic type I changes). Moderate disc bulge is seen, which is eccentric to the right. There is a central/right disc protrusion seen. Moderate facet hypertrophy is seen, right worse than left. There is moderate to severe right-sided neural foraminal narrowing, with a degree of compression upon the right T12 nerve root. There is moderate left-sided neural foraminal narrowing. Moderate to severe central canal narrowing is seen, as on series 8, image 8. These imaging findings have progressed compared to the prior study. L1-L2: Moderate loss of disc height is seen. Loss of disc signal is seen. Reactive marrow endplate changes are seen, which are hyperintense on T1-weighted and T2-weighted imaging and most consistent with fatty metaplasia (Modic type II changes). Moderate disc bulge is seen. Posteriorly projected endplate osteophytes are seen. There is a disc protrusion within the left subarticular region. There is at least moderate left-sided neural foraminal narrowing, with a degree of compression upon the exiting left L1 nerve root. Moderate right-sided neural foraminal narrowing is seen. Moderate central canal narrowing is seen. These imaging findings have progressed compared to the prior study. L2-L3: At least moderate loss of disc height and disc signal can be seen. Reactive marrow endplate changes are seen, which are hyperintense on T1-weighted and T2-weighted imaging and most consistent with fatty metaplasia (Modic type II changes). Moderate generalized disc bulge is seen. Mild to moderate facet hypertrophy can be seen. There is moderate left-sided and at least moderate right-sided neural foraminal narrowing. There is a degree of compression seen upon the exiting right L2 nerve root. Moderate central canal narrowing is seen. When comparison is made with the prior images, these findings are similar. L3-L4: Moderate loss of disc height is seen. Loss of disc signal is seen. Reactive marrow endplate changes are seen, which are hyperintense on T1-weighted and T2-weighted imaging and most consistent with fatty metaplasia (Modic type II changes). At least moderate disc bulge is seen, which is eccentric to the left. Moderate to prominent facet hypertrophy can be seen. There is at least moderate right-sided and moderate to severe left-sided neural foraminal narrowing. There is a degree of compression upon the exiting left L3 nerve root. Moderate central canal narrowing is seen. No significant change from the prior. L4-L5: Moderate loss of disc height and disc signal can be seen on the right-side. At least moderate disc bulge is seen, which is eccentric to the right. Reactive marrow endplate changes are seen, which demonstrate mixed T1 weighted and T2-weighted signal, and are attributed to a combination of edema and fatty metaplasia (Modic type I and Modic type II changes). At least moderate right-sided and moderate left-sided facet hypertrophy is seen. There is moderate left-sided and at least moderate right-sided neural foraminal narrowing. At least moderate central canal narrowing is seen, as on series 8, image 26. When comparison is made with the prior images, these findings are similar. L5-S1: The disc height is well-preserved. Loss of disc signal is seen at this level. Mild to moderate disc bulge is seen, with a mild central disc protrusion. There is at least moderate bilateral facet hypertrophy, right worse than left. There is moderate left-sided and no right-sided neural foraminal narrowing. No significant central canal narrowing is seen. When comparison is made with the prior images, these findings are similar. IMPRESSION: There is interval mild compression deformity seen involving L1. Multiple levels of lumbar spine degenerative change can be seen, which have progressed at a few levels compared to the prior MRI. Dictated by: Andre Hubbard M.D. on 01/03/2024 at 10:10 Approved by: Andre Hubbard M.D. on 01/03/2024 at 10:20
== END ==
LOC: MRI 16:55
PROVIDERS: PCP Family Medicine; Referring Provider Family Medicine; Visit Provider Family Medicine
DX: M47.26 Other spondylosis with radiculopathy, lumbar region (principal); M47.27 Other spondylosis with radiculopathy, lumbosacral region; M43.8X6 Other specified deforming dorsopathies, lumbar region
CPT/HCPCS: 72148

== ENCOUNTER 2024-01-10 10:45 | Outpatient (RCR) | payer MEDICARE, OTHER, SELFPAY ==
[2021-10-08 14:31] VITALS: BMI 24.7
--- NOTE | 2023-10-10 10:30 | PT.OPPOC ---
Physical, Occupational & Speech Therapy At [facility] Current Diagnoses Stiffness of left hip, not elsewhere classified (10/10/23) Spinal stenosis, thoracic region (10/10/23) Visit Care Team Role Provider Type Ford Bello MD Primary Care Provider Physician Specialty: Family Practice Address: [address] [place] [address], [facility] [place], [address] Email: [email or web address] Camilo Mulligan MD Attending Provider Physician Referring Provider Specialty: Orthopedics Orthopedic Surgery Address: [address] [place] [address], [place], [address] Email: [email or web address] Plan Of Care PT-OP-B Current Condition Start: 10/10/23 17:54 Freq: Status: Active Protocol: Document 10/10/23 09:45 DCW (Rec: 10/11/23 16:21 DCW [id number]) Current Condition History of Current Condition Onset Date Five month history Current Complaints Right hip pain History of Current Condition Pt is a 77 year old female presenting to skilled therapy five months s/p T12 laminectomy. Pt reports she is in severe, constant pain, although thinks it might be improving. Pt experiences burning in her hip when walking more than a half block . Unable to right in a car further than a trip to [place]. Was previously experiencing some radicular pain, but that has gone away recently. Admits that bending causes pain that gets me right at the panty line. Has occasional severe discomfort in right calf, typically when trying to sleep. Has been having anxiety/depression about her recovery, was very hesitant with coming to PT, because she is worried about anyone touching her back. Treatment Goals Patient/Caregiver Goals I want to be able to walk good and to get through this pain, hopefully it will be gone someday. PT-OP-T Assessment and Plan Start: 10/10/23 17:54 Freq: Status: Active Protocol: Document 10/10/23 09:45 DCW (Rec: 10/11/23 16:21 DCW [id number]) Physical Therapy Assessment Rehab Potential Rehabilitation Potential Good Evaluation Complexity Number of Personal Factors/Comorbidities 3 or More Number of Body Systems Impaired 4 or More Clinical Presentation at Evaluation Evolving Impairments Impairments Activity Tolerance,Functional Activities,Functional Mobility ,Gait,Pain,ROM,Strength,Tone Goals Three Impairment Pt unable to sit in vehicle to drive farther than [facility] Goal (LTG) Pt to demonstrate reduced hip pain with extended sitting by tolerating a [address] without increased hip pain. LTG Duration 12/10/23 Two Impairment Pt unable to walk more than 1/ 2 block without increased right hip pain/burn Senior Care Goal (LTG) Pt to report ability to ambulate one mile around her neighborhood without increased hip pain in order to improve activity tolerance LTG Duration 12/10/23 One Impairment Pt does not have an appropriate home exercise program Short Term Goal (STG) Pt to be independent and compliant with an appropriate HEP STG Duration 11/11/23 Assessment Summary Assessment Pt presents with signs and symptoms consistent with referring diagnosis. Pt continues to experience pain five months s/p T12 laminectomy. Surgical incision site and laminectomy appear to be well healed, intact, and , per pt, not the area of the pain. Pt reports burning pain posterior hip with extended walking or sitting. Very tight with passive hip ROM into ER/ IR, increased tone along external rotators and glutes. Pt may benefit from skilled therapeutic intervention focusing on stretching/ flexibility, hip mobilization, strengthening of external rotators, and STM. Physical Therapy Plan Frequency and Duration Frequency of Treatment 2x/Week Plan of Care Start Date 10/10/23 Plan of Care End Date 12/10/23 Therapeutic Interventions Therapeutic Interventions Gait Training,Home Exercise Program,Joint Mobilizations, Manual Therapy,Neuromuscular Re-education,Patient/Caregiver Education,Self-Care/Home Management,Soft Tissue Mobilization,Therapeutic Activities,Therapeutic Exercises Next Visit Focus/Plan Next Note Type Treatment Note Next Visit Plan Stretching, hip STM, ER strengthening, increasing activity tolerance Plan of Care Dates Plan of Care Start Date 10/10/23 Plan of Care End Date 12/10/23 Electronically Signed by: Vern Ritter, PT 10/11/23 [id number] If you are in agreement with this Plan of Care, please return a signed and dated copy. I have reviewed this Plan of Care and certify that the skilled therapy services above are required to meet the patient?s needs. Physician Signature Date Printed Name and Credentials Clinical Instructor Signature Printed Name and Credentials
--- NOTE | 2023-10-10 10:30 | PT.OIE ---
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 Camilo Mulligan MD Attending Provider Physician Referring Provider Specialty: Orthopedics Orthopedic Surgery Address: [address] [place] [address], [phone] Email: [email or web address] [facility] Initial Evaluation PT-OP-A Visit Information Start: 10/10/23 17:54 Freq: Status: Active Protocol: Document 10/10/23 09:45 DCW (Rec: 10/10/23 18:05 DCW [id number]) Out-Patient Physical Therapy Visit Information Visit Information Visit Type Initial Evaluation Visit Start Time 09:45 Visit Stop Time 10:30 Visit Number 1 Number of PLATER HELPER Visits 0 Evaluation Information Evaluation Date 10/10/23 PT-OP-B Current Condition Start: 10/10/23 17:54 Freq: Status: Active Protocol: Document 10/10/23 09:45 DCW (Rec: 10/11/23 16:21 DCW [id number]) Current Condition History of Current Condition Onset Date Five month history Current Complaints Right hip pain History of Current Condition Pt is a 77 year old female presenting to skilled therapy five months s/p T12 laminectomy. Pt reports she is in severe, constant pain, although thinks it might be improving. Pt experiences burning in her hip when walking more than a half block . Unable to right in a car further than a trip to [place]. Was previously experiencing some radicular pain, but that has gone away recently. Admits that bending causes pain that gets me right at the panty line. Has occasional severe discomfort in right calf, typically when trying to sleep. Has been having anxiety/depression about her recovery, was very hesitant with coming to PT, because she is worried about anyone touching her back. Treatment Goals Patient/Caregiver Goals I want to be able to walk good and to get through this pain, hopefully it will be gone someday. PT-OP-C Subjective Start: 10/10/23 17:54 Freq: Status: Active Protocol: Document 10/10/23 09:45 DCW (Rec: 10/10/23 18:05 DCW [id number]) OP-PT Subjective Patient Comments Patient Comments I've had severe constant pain since surgery. It does seem like it's getting better. Patient Reported Progress Improving Patient Questionnaires Oswestry Low Back Index Oswestry Score 23/50 Oswestry Impairment 40 to 59% Impaired (Score 40- 59) OP-PT Pain Assessment Location Left Hip Intensity 7 Scale Used Numeric (0 - 10) PT-OP-K Range of Motion Start: 10/10/23 17:54 Freq: Status: Active Protocol: Document 10/10/23 09:45 DCW (Rec: 10/10/23 18:08 DCW [id number]) Lumbar Spine Range of Motion Lumbar Spine Active Degrees Testing Position Standing Flexion 50 Extension 30 Lateral Flexion Left 37 Lateral Flexion Right 37 Comments Lateral flexion measured incm from fingertips to floor PT-OP-L Special Tests Start: 10/10/23 17:54 Freq: Status: Active Protocol: Document 10/10/23 09:45 DCW (Rec: 10/10/23 18:08 DCW [id number]) Special Tests Lumbar Spine Special Tests Vertical Spine Loading Test Results Negative Compression Test Results Negative TATIANA Test Results Negative Straight Leg Raise Test Results Negative A-P Shearing Test Results Negative PT-OP-M Strength Start: 10/10/23 17:54 Freq: Status: Active Protocol: Document 10/10/23 09:45 DCW (Rec: 10/10/23 18:08 DCW [id number]) Hip Strength Hip Manual Muscle Testing Right Flexion (L2) 5 Normal Abduction 5 Normal Adduction 5 Normal External Rotation 4 Good Internal Rotation 5 Normal Left Flexion (L2) 5 Normal Abduction 5 Normal Adduction 5 Normal External Rotation 4 Good Internal Rotation 5 Normal PT-OP-Q Treatments Start: 10/10/23 17:54 Freq: Status: Active Protocol: Document 10/10/23 09:45 DCW (Rec: 10/10/23 18:05 DCW [id number]) Therapeutic Exercises Sitting Exercises Self-STM Sitting Exercise Name Tennis ball self-STM Piriformis Sitting Exercise Name Seated figure-4 stretch Side bilateral PT-OP-T Assessment and Plan Start: 10/10/23 17:54 Freq: Status: Active Protocol: Document 10/10/23 09:45 DCW (Rec: 10/11/23 16:21 DCW [id number]) Physical Therapy Assessment Rehab Potential Rehabilitation Potential Good Evaluation Complexity Number of Personal Factors/Comorbidities 3 or More Number of Body Systems Impaired 4 or More Clinical Presentation at Evaluation Evolving Impairments Impairments Activity Tolerance,Functional Activities,Functional Mobility ,Gait,Pain,ROM,Strength,Tone Goals Three Impairment Pt unable to sit in vehicle to drive farther than [place] Operator Goal (LTG) Pt to demonstrate reduced hip pain with extended sitting by tolerating a [address] without increased hip pain. LTG Duration 12/10/23 Two Impairment Pt unable to walk more than 1/ 2 block without increased right hip pain/burn Jail Goal (LTG) Pt to report ability to ambulate one mile around her neighborhood without increased hip pain in order to improve activity tolerance LTG Duration 12/10/23 One Impairment Pt does not have an appropriate home exercise program Short Term Goal (STG) Pt to be independent and compliant with an appropriate HEP STG Duration 11/11/23 Assessment Summary Assessment Pt presents with signs and symptoms consistent with referring diagnosis. Pt continues to experience pain five months s/p T12 laminectomy. Surgical incision site and laminectomy appear to be well healed, intact, and , per pt, not the area of the pain. Pt reports burning pain posterior hip with extended walking or sitting. Very tight with passive hip ROM into ER/ IR, increased tone along external rotators and glutes. Pt may benefit from skilled therapeutic intervention focusing on stretching/ flexibility, hip mobilization, strengthening of external rotators, and STM. Physical Therapy Plan Frequency and Duration Frequency of Treatment 2x/Week Plan of Care Start Date 10/10/23 Plan of Care End Date 12/10/23 Therapeutic Interventions Therapeutic Interventions Gait Training,Home Exercise Program,Joint Mobilizations, Manual Therapy,Neuromuscular Re-education,Patient/Caregiver Education,Self-Care/Home Management,Soft Tissue Mobilization,Therapeutic Activities,Therapeutic Exercises Next Visit Focus/Plan Next Note Type Treatment Note Next Visit Plan Stretching, hip STM, ER strengthening, increasing activity tolerance
--- NOTE | 2023-10-13 10:39 | PT.OTN ---
Current Diagnoses Stiffness of left hip, not elsewhere classified (10/13/23) Spinal stenosis, thoracic region (10/13/23) Physical Therapy Treatment Note PT-OP-A Visit Information Start: 10/10/23 17:54 Freq: Status: Active Protocol: Document 10/13/23 09:45 DCW (Rec: 10/13/23 10:39 DCW [id number]) Out-Patient Physical Therapy Visit Information Visit Information Visit Type Treatment Note Visit Start Time 09:45 Visit Stop Time 10:30 Visit Number 2 Number of OCEANOLOGY TEACHER Visits 0 Evaluation Information Evaluation Date 10/10/23 PT-OP-B Current Condition Start: 10/10/23 17:54 Freq: Status: Active Protocol: Document 10/10/23 09:45 DCW (Rec: 10/11/23 16:21 DCW [id number]) Current Condition History of Current Condition Onset Date Five month history Current Complaints Right hip pain History of Current Condition Pt is a 77 year old female presenting to skilled therapy five months s/p T12 laminectomy. Pt reports she is in severe, constant pain, although thinks it might be improving. Pt experiences burning iin her hip when walking more than a half block . Unable to right in a car further than a trip to [place]. Was previously experiencing some radicular pain, but that has gone away recently. Admits that bending causes pain that gets me right at the panty line. Has occasional severe discomfort in right calf, typically when trying to sleep. Has been having anxiety/depression about her recovery, was very hesitant with coming to PT, because she is worried about anyone touching her back. Treatment Goals Patient/Caregiver Goals I want to be able to walk good and to get through this pain, hopefully it will be gone someday. PT-OP-C Subjective Start: 10/10/23 17:54 Freq: Status: Active Protocol: Document 10/13/23 09:45 DCW (Rec: 10/13/23 10:39 DCW [id number]) OP-PT Subjective Patient Comments Patient Comments Pt admits that she has tried to do her stretches, but it felt different, and she wonders if she's doing it correctly. PT-OP-K Range of Motion Start: 10/10/23 17:54 Freq: Status: Active Protocol: Document 10/10/23 09:45 DCW (Rec: 10/10/23 18:08 DCW [id number]) Lumbar Spine Range of Motion Lumbar Spine Active Degrees Testing Position Standing Flexion 50 Extension 30 Lateral Flexion Left 37 Lateral Flexion Right 37 Comments Lateral flexion measured incm from fingertips to floor PT-OP-L Special Tests Start: 10/10/23 17:54 Freq: Status: Active Protocol: Document 10/10/23 09:45 DCW (Rec: 10/10/23 18:08 DCW [id number]) Special Tests Lumbar Spine Special Tests Vertical Spine Loading Test Results Negative Compression Test Results Negative TATIANA Test Results Negative Straight Leg Raise Test Results Negative A-P Shearing Test Results Negative PT-OP-M Strength Start: 10/10/23 17:54 Freq: Status: Active Protocol: Document 10/10/23 09:45 DCW (Rec: 10/10/23 18:08 DCW [id number]) Hip Strength Hip Manual Muscle Testing Right Flexion (L2) 5 Normal Abduction 5 Normal Adduction 5 Normal External Rotation 4 Good Internal Rotation 5 Normal Left Flexion (L2) 5 Normal Abduction 5 Normal Adduction 5 Normal External Rotation 4 Good Internal Rotation 5 Normal PT-OP-Q Treatments Start: 10/10/23 17:54 Freq: Status: Active Protocol: Document 10/13/23 09:45 DCW (Rec: 10/13/23 10:39 DCW [id number]) Gym Equipment Therapeutic Ball Trunk Extension Exercise Details Resisted trunk extension Ball Size/Color Green - 65 cm Lv 2 T-band Body Position Sitting Pelvic tilts Exercise Details Pelvic tilts/circles Ball Size/Color Green - 65 cm Body Position Sitting Therapeutic Exercises Sidelying Exercises Reverse Clamshell Sidelying Exercise Name Reverse Clamshell Side bilateral Resistance Lv 2 Clamshell Sidelying Exercise Name Clamshell Side bilateral Resistance Lv 2 Open Book Sidelying Exercise Name Open Book Side bilateral Sitting Exercises Trunk Flexion Sitting Exercise Name Seated trunk flexion stretch Piriformis Sitting Exercise Name Seated figure-4 stretch Side bilateral PT-OP-T Assessment and Plan Start: 10/10/23 17:54 Freq: Status: Active Protocol: Document 10/13/23 09:45 DCW (Rec: 10/13/23 10:39 DCW [id number]) Physical Therapy Assessment Impairments Impairments Activity Tolerance,Functional Activities,Functional Mobility ,Gait,Pain,ROM,Strength,Tone Goals Three Impairment Pt unable to sit in vehicle to drive farther than [place] Pharmacy Aide Goal (LTG) Pt to demonstrate reduced hip pain with extended sitting by tolerating a [address] without increased hip pain. LTG Duration 12/10/23 Two Impairment Pt unable to walk more than 1/ 2 block without increased right hip pain/burn Pharmacy Aide Goal (LTG) Pt to report ability to ambulate one mile around her neighborhood without increased hip pain in order to improve activity tolerance LTG Duration 12/10/23 One Impairment Pt does not have an appropriate home exercise program Short Term Goal (STG) Pt to be independent and compliant with an appropriate HEP STG Duration 11/11/23 Assessment Summary Assessment Very good response to treatment, pt happy with additions to HEP. Pt feeling much looser by end of session, did well with corrections to piriformis stretch technique. Physical Therapy Plan Frequency and Duration Frequency of Treatment 2x/Week Plan of Care Start Date 10/10/23 Plan of Care End Date 12/10/23 Therapeutic Interventions Therapeutic Interventions Gait Training,Home Exercise Program,Joint Mobilizations, Manual Therapy,Neuromuscular Re-education,Patient/Caregiver Education,Self-Care/Home Management,Soft Tissue Mobilization,Therapeutic Activities,Therapeutic Exercises Next Visit Focus/Plan Next Note Type Treatment Note Next Visit Plan Stretching, hip STM, ER strengthening, increasing activity tolerance
--- NOTE | 2023-10-17 10:29 | PT.OTN ---
Current Diagnoses Stiffness of left hip, not elsewhere classified (10/17/23) Spinal stenosis, thoracic region (10/17/23) Physical Therapy Treatment Note PT-OP-A Visit Information Start: 10/10/23 17:54 Freq: Status: Active Protocol: Document 10/17/23 09:45 DCW (Rec: 10/17/23 10:29 DCW [id number]) Out-Patient Physical Therapy Visit Information Visit Information Visit Type Treatment Note Visit Start Time 09:45 Visit Stop Time 10:30 Visit Number 3 Number of OPERATOR ELECTRONIC WARFARE Visits 0 Evaluation Information Evaluation Date 10/10/23 PT-OP-B Current Condition Start: 10/10/23 17:54 Freq: Status: Active Protocol: Document 10/10/23 09:45 DCW (Rec: 10/11/23 16:21 DCW [id number]) Current Condition History of Current Condition Onset Date Five month history Current Complaints Right hip pain History of Current Condition Pt is a 77 year old female presenting to skilled therapy five months s/p T12 laminectomy. Pt reports she is in severe, constant pain, although thinks it might be improving. Pt experiences burning iin her hip when walking more than a half block . Unable to right in a car further than a trip to [place]. Was previously experiencing some radicular pain, but that has gone away recently. Admits that bending causes pain that gets me right at the panty line. Has occasional severe discomfort in right calf, typically when trying to sleep. Has been having anxiety/depression about her recovery, was very hesitant with coming to PT, because she is worried about anyone touching her back. Treatment Goals Patient/Caregiver Goals I want to be able to walk good and to get through this pain, hopefully it will be gone someday. PT-OP-C Subjective Start: 10/10/23 17:54 Freq: Status: Active Protocol: Document 10/17/23 09:45 DCW (Rec: 10/17/23 10:29 DCW [id number]) OP-PT Subjective Patient Comments Patient Comments Pt notes she is pretty sore, but I can tell it's working. Pt notes she feels fine when walking, PT-OP-K Range of Motion Start: 10/10/23 17:54 Freq: Status: Active Protocol: Document 10/10/23 09:45 DCW (Rec: 10/10/23 18:08 DCW [id number]) Lumbar Spine Range of Motion Lumbar Spine Active Degrees Testing Position Standing Flexion 50 Extension 30 Lateral Flexion Left 37 Lateral Flexion Right 37 Comments Lateral flexion measured incm from fingertips to floor PT-OP-L Special Tests Start: 10/10/23 17:54 Freq: Status: Active Protocol: Document 10/10/23 09:45 DCW (Rec: 10/10/23 18:08 DCW [id number]) Special Tests Lumbar Spine Special Tests Vertical Spine Loading Test Results Negative Compression Test Results Negative TATIANA Test Results Negative Straight Leg Raise Test Results Negative A-P Shearing Test Results Negative PT-OP-M Strength Start: 10/10/23 17:54 Freq: Status: Active Protocol: Document 10/10/23 09:45 DCW (Rec: 10/10/23 18:08 DCW [id number]) Hip Strength Hip Manual Muscle Testing Right Flexion (L2) 5 Normal Abduction 5 Normal Adduction 5 Normal External Rotation 4 Good Internal Rotation 5 Normal Left Flexion (L2) 5 Normal Abduction 5 Normal Adduction 5 Normal External Rotation 4 Good Internal Rotation 5 Normal PT-OP-Q Treatments Start: 10/10/23 17:54 Freq: Status: Active Protocol: Document 10/17/23 09:45 DCW (Rec: 10/17/23 10:29 DCW [id number]) Gym Equipment Therapeutic Ball Hip Flexion Exercise Details Resisted hip/knee flexion Ball Size/Color Blue - 45 cm Lv 2 T-band Body Position Supine Bridging Exercise Details Bridging /c feet on ball Ball Size/Color Blue - 45 cm LTR Exercise Details LTR Ball Size/Color Blue - 45 cm Body Position Supine Therapeutic Exercises Supine Exercises Piriformis stretch Supine Exercise Name Knee to opposite shoulder Side bilateral Sitting Exercises Trunk Flexion Sitting Exercise Name Seated trunk flexion stretch Manual Therapy Treatment Consent Patient gave verbal consent for manual Yes treatment Soft Tissue Mobilization Piriformis Body Location B Piriformis Mobilization Type Strumming,Sustained Pressure Intensity/Depth Moderate Body Position Sidelying Lumbar Body Location Lumbar paraspinals Mobilization Type Strumming,Sustained Pressure Intensity/Depth Moderate Body Position Sidelying PT-OP-T Assessment and Plan Start: 10/10/23 17:54 Freq: Status: Active Protocol: Document 10/17/23 09:45 DCW (Rec: 10/17/23 10:29 DCW [id number]) Physical Therapy Assessment Impairments Impairments Activity Tolerance,Functional Activities,Functional Mobility ,Gait,Pain,ROM,Strength,Tone Goals Three Impairment Pt unable to sit in vehicle to drive farther than [place] Custodial Goal (LTG) Pt to demonstrate reduced hip pain with extended sitting by tolerating a [address] without increased hip pain. LTG Duration 12/10/23 Two Impairment Pt unable to walk more than 1/ 2 block without increased right hip pain/burn Custodial Goal (LTG) Pt to report ability to ambulate one mile around her neighborhood without increased hip pain in order to improve activity tolerance LTG Duration 12/10/23 One Impairment Pt does not have an appropriate home exercise program Short Term Goal (STG) Pt to be independent and compliant with an appropriate HEP STG Duration 11/11/23 Assessment Summary Assessment Pt compliant with HEP, doing well overall. Continues to have some tightness and muscle soreness, but good response overall to activity. Physical Therapy Plan Frequency and Duration Frequency of Treatment 2x/Week Plan of Care Start Date 10/10/23 Plan of Care End Date 12/10/23 Therapeutic Interventions Therapeutic Interventions Gait Training,Home Exercise Program,Joint Mobilizations, Manual Therapy,Neuromuscular Re-education,Patient/Caregiver Education,Self-Care/Home Management,Soft Tissue Mobilization,Therapeutic Activities,Therapeutic Exercises Next Visit Focus/Plan Next Note Type Treatment Note Next Visit Plan Stretching, hip STM, ER strengthening, increasing activity tolerance
--- NOTE | 2023-10-19 10:35 | PT.OTN ---
Current Diagnoses Stiffness of left hip, not elsewhere classified (10/19/23) Spinal stenosis, thoracic region (10/19/23) Physical Therapy Treatment Note PT-OP-A Visit Information Start: 10/10/23 17:54 Freq: Status: Active Protocol: Document 10/19/23 09:52 SP (Rec: 10/19/23 10:37 SP [id number]) Out-Patient Physical Therapy Visit Information Visit Information Visit Type Treatment Note Visit Note attended and assist cuing for carryover home Visit Start Time 09:52 Visit Stop Time 10:35 Visit Number 4 Number of COMMERCIAL CONSTRUCTION SUPERINTENDENT Visits 1 Evaluation Information Evaluation Date 10/10/23 PT-OP-B Current Condition Start: 10/10/23 17:54 Freq: Status: Active Protocol: Document 10/10/23 09:45 DCW (Rec: 10/11/23 16:21 DCW [id number]) Current Condition History of Current Condition Onset Date Five month history Current Complaints Right hip pain History of Current Condition Pt is a 77 year old female presenting to skilled therapy five months s/p T12 laminectomy. Pt reports she is in severe, constant pain, although thinks it might be improving. Pt experiences burning iin her hip when walking more than a half block . Unable to right in a car further than a trip to [place]. Was previously experiencing some radicular pain, but that has gone away recently. Admits that bending causes pain that gets me right at the panty line. Has occasional severe discomfort in right calf, typically when trying to sleep. Has been having anxiety/depression about her recovery, was very hesitant with coming to PT, because she is worried about anyone touching her back. Treatment Goals Patient/Caregiver Goals I want to be able to walk good and to get through this pain, hopefully it will be gone someday. PT-OP-C Subjective Start: 10/10/23 17:54 Freq: Status: Active Protocol: Document 10/19/23 09:52 SP (Rec: 10/19/23 10:37 SP [id number]) OP-PT Subjective Patient Comments Patient Comments Pt reports was pretty sore after last tx. Did alot manual and think still recoverying from it. PT-OP-K Range of Motion Start: 10/10/23 17:54 Freq: Status: Active Protocol: Document 10/10/23 09:45 DCW (Rec: 10/10/23 18:08 DCW [id number]) Lumbar Spine Range of Motion Lumbar Spine Active Degrees Testing Position Standing Flexion 50 Extension 30 Lateral Flexion Left 37 Lateral Flexion Right 37 Comments Lateral flexion measured incm from fingertips to floor PT-OP-L Special Tests Start: 10/10/23 17:54 Freq: Status: Active Protocol: Document 10/10/23 09:45 DCW (Rec: 10/10/23 18:08 DCW [id number]) Special Tests Lumbar Spine Special Tests Vertical Spine Loading Test Results Negative Compression Test Results Negative TATIANA Test Results Negative Straight Leg Raise Test Results Negative A-P Shearing Test Results Negative PT-OP-M Strength Start: 10/10/23 17:54 Freq: Status: Active Protocol: Document 10/10/23 09:45 DCW (Rec: 10/10/23 18:08 DCW [id number]) Hip Strength Hip Manual Muscle Testing Right Flexion (L2) 5 Normal Abduction 5 Normal Adduction 5 Normal External Rotation 4 Good Internal Rotation 5 Normal Left Flexion (L2) 5 Normal Abduction 5 Normal Adduction 5 Normal External Rotation 4 Good Internal Rotation 5 Normal PT-OP-Q Treatments Start: 10/10/23 17:54 Freq: Status: Active Protocol: Document 10/19/23 09:52 SP (Rec: 10/19/23 10:37 SP [id number]) Gym Equipment Therapeutic Ball Hip Flexion Exercise Details Resisted hip/knee flexion Ball Size/Color Blue - 55 cm Lv 2 T-band Body Position Supine Reps/Duration 2x10 Bridging Exercise Details Bridging /c feet on ball Ball Size/Color Blue - 55 cm Reps/Duration 2x10 LTR Exercise Details LTR Ball Size/Color Blue - 55 cm AROM Body Position Supine Therapeutic Exercises Supine Exercises Piriformis stretch Supine Exercise Name Knee to opposite shoulder- gave HO Side bilateral Reps/Minutes 30 sec x2 Comments Cued hold stretch 30 sec- good response Sidelying Exercises Reverse Clamshell Sidelying Exercise Name Reverse Clamshell- HEP has HO Side bilateral Resistance Lv 2 at ankle Reps/Minutes x15 (BID) Comments good muscle tiring Clamshell Sidelying Exercise Name Clamshell- HEP has HO Side bilateral Resistance Lv 2 at thighs Reps/Minutes x15 (home BID) Comments good muscle tiring Open Book Sidelying Exercise Name Open Book- HEP has HO Side bilateral Reps/Minutes x5 Comments cued slow painfree range Sitting Exercises Trunk Flexion Sitting Exercise Name Seated trunk flexion - HEP has HO Equipment Used mesh chair Reps/Minutes 2 SH hold x10 reps Comments cued keep back straight, painfree range- no round shoulders. Piriformis Sitting Exercise Name Seated figure-4 stretch Side bilateral Reps/Minutes 2SH pressure down, 5-10 reps if ok Comments good stretch painfree, cues not over pressure into pain Manual Therapy Treatment Soft Tissue Mobilization Piriformis Body Location B Piriformis & GLut med Mobilization Type Strumming,Sustained Pressure Intensity/Depth Moderate Body Position Sidelying Lumbar Body Location Lumbar paraspinals & QL Mobilization Type Strumming,Sustained Pressure Intensity/Depth Moderate Body Position Sidelying PT-OP-T Assessment and Plan Start: 10/10/23 17:54 Freq: Status: Active Protocol: Document 10/19/23 09:52 SP (Rec: 10/19/23 10:37 SP [id number]) Physical Therapy Assessment Goals Three Impairment Pt unable to sit in vehicle to drive farther than [place] Goal (LTG) Pt to demonstrate reduced hip pain with extended sitting by tolerating a [address] without increased hip pain. LTG Duration 12/10/23 Two Impairment Pt unable to walk more than 1/ 2 block without increased right hip pain/burn Intermediate Goal (LTG) Pt to report ability to ambulate one mile around her neighborhood without increased hip pain in order to improve activity tolerance LTG Duration 12/10/23 One Impairment Pt does not have an appropriate home exercise program Short Term Goal (STG) Pt to be independent and compliant with an appropriate HEP STG Duration 11/11/23 Assessment Summary Assessment Pt had good response less low back and glut muscles tension after manual. Reviewed HEP, instructed bring HOs with her to write cues given for improved carryover home performance. attended and good providing pt positioning corrections as well. Improved light gentle stretch vs anterior hip discomfort reported last tx. She performed in supine and seated with cues for set up and direction of knee provided HOs today. Cues for back straight with trunk flexion ROM range gentle stretch in LB . Physical Therapy Plan Frequency and Duration Frequency of Treatment 2x/Week Plan of Care Start Date 10/10/23 Plan of Care End Date 12/10/23 Therapeutic Interventions Therapeutic Interventions Gait Training,Home Exercise Program,Joint Mobilizations, Manual Therapy,Neuromuscular Re-education,Patient/Caregiver Education,Self-Care/Home Management,Soft Tissue Mobilization,Therapeutic Activities,Therapeutic Exercises Next Visit Focus/Plan Next Note Type Treatment Note Next Visit Plan Recheck HEP: Stretching LB and hip ER strengthening. Next tx incorporate shuttle recovery, STS, resisted side stepping. POC: hip STM, increasing activity tolerance
--- NOTE | 2023-10-24 10:31 | PT.OTN ---
Current Diagnoses Stiffness of left hip, not elsewhere classified (10/24/23) Spinal stenosis, thoracic region (10/24/23) Physical Therapy Treatment Note PT-OP-A Visit Information Start: 10/10/23 17:54 Freq: Status: Active Protocol: Document 10/24/23 09:45 DCW (Rec: 10/24/23 10:31 DCW [id number]) Out-Patient Physical Therapy Visit Information Visit Information Visit Type Treatment Note Visit Start Time 09:45 Visit Stop Time 10:30 Visit Number 5 Number of ADULT AND PEDIATRIC NEUROLOGIST Visits 0 Evaluation Information Evaluation Date 10/10/23 PT-OP-B Current Condition Start: 10/10/23 17:54 Freq: Status: Active Protocol: Document 10/10/23 09:45 DCW (Rec: 10/11/23 16:21 DCW [id number]) Current Condition History of Current Condition Onset Date Five month history Current Complaints Right hip pain History of Current Condition Pt is a 77 year old female presenting to skilled therapy five months s/p T12 laminectomy. Pt reports she is in severe, constant pain, although thinks it might be improving. Pt experiences burning iin her hip when walking more than a half block . Unable to right in a car further than a trip to [place]. Was previously experiencing some radicular pain, but that has gone away recently. Admits that bending causes pain that gets me right at the panty line. Has occasional severe discomfort in right calf, typically when trying to sleep. Has been having anxiety/depression about her recovery, was very hesitant with coming to PT, because she is worried about anyone touching her back. Treatment Goals Patient/Caregiver Goals I want to be able to walk good and to get through this pain, hopefully it will be gone someday. PT-OP-C Subjective Start: 10/10/23 17:54 Freq: Status: Active Protocol: Document 10/24/23 09:45 DCW (Rec: 10/24/23 10:31 DCW [id number]) OP-PT Subjective Patient Comments Patient Comments I think I'm getting better with these muscles getting loosened. Notes HEP has been going fairly well PT-OP-K Range of Motion Start: 10/10/23 17:54 Freq: Status: Active Protocol: Document 10/10/23 09:45 DCW (Rec: 10/10/23 18:08 DCW [id number]) Lumbar Spine Range of Motion Lumbar Spine Active Degrees Testing Position Standing Flexion 50 Extension 30 Lateral Flexion Left 37 Lateral Flexion Right 37 Comments Lateral flexion measured incm from fingertips to floor PT-OP-L Special Tests Start: 10/10/23 17:54 Freq: Status: Active Protocol: Document 10/10/23 09:45 DCW (Rec: 10/10/23 18:08 DCW [id number]) Special Tests Lumbar Spine Special Tests Vertical Spine Loading Test Results Negative Compression Test Results Negative TATIANA Test Results Negative Straight Leg Raise Test Results Negative A-P Shearing Test Results Negative PT-OP-M Strength Start: 10/10/23 17:54 Freq: Status: Active Protocol: Document 10/10/23 09:45 DCW (Rec: 10/10/23 18:08 DCW [id number]) Hip Strength Hip Manual Muscle Testing Right Flexion (L2) 5 Normal Abduction 5 Normal Adduction 5 Normal External Rotation 4 Good Internal Rotation 5 Normal Left Flexion (L2) 5 Normal Abduction 5 Normal Adduction 5 Normal External Rotation 4 Good Internal Rotation 5 Normal PT-OP-Q Treatments Start: 10/10/23 17:54 Freq: Status: Active Protocol: Document 10/24/23 09:45 DCW (Rec: 10/24/23 10:31 [facility] [id number]) Gym Equipment Shuttle Recovery Unilateral Squats Resistance 37#->25# Bilateral Squats Resistance 62# Therapeutic Ball Pelvic tilts Exercise Details Pelvic tilts/circles Ball Size/Color Green - 65 cm Body Position Sitting Therapeutic Exercises Supine Exercises Hamstring Stretch Supine Exercise Name Hamstring Stretch Side bilateral Piriformis stretch Supine Exercise Name Knee to opposite shoulder Side bilateral Standing Exercises Pallof Press Standing Exercise Name Pallof Press Side bilateral Resistance [place] Reps/Minutes x15 Manual Therapy Treatment Consent Patient gave verbal consent for manual Yes treatment Soft Tissue Mobilization Piriformis Body Location B Piriformis Mobilization Type Strumming,Sustained Pressure Intensity/Depth Moderate Body Position Sidelying Lumbar Body Location Lumbar paraspinals Mobilization Type Strumming,Sustained Pressure Intensity/Depth Moderate Body Position Sidelying PT-OP-T Assessment and Plan Start: 10/10/23 17:54 Freq: Status: Active Protocol: Document 10/24/23 09:45 DCW (Rec: 10/24/23 10:31 DCW [id number]) Physical Therapy Assessment Impairments Impairments Activity Tolerance,Functional Activities,Functional Mobility ,Gait,Pain,ROM,Strength,Tone Goals Three Impairment Pt unable to sit in vehicle to drive farther than [place] [employer] Fore[employer] Goal (LTG) Pt to demonstrate reduced hip pain with extended sitting by tolerating a [address] without increased hip pain. LTG Duration 12/10/23 Two Impairment Pt unable to walk more than 1/ 2 block without increased right hip pain/burn [facility] Goal (LTG) Pt to report ability to ambulate one mile around her neighborhood without increased hip pain in order to improve activity tolerance LTG Duration 12/10/23 One Impairment Pt does not have an appropriate home exercise program Short Term Goal (STG) Pt to be independent and compliant with an appropriate HEP STG Duration 11/11/23 Assessment Summary Assessment Pt showing improvement with tone and mobility. Working on trunk mobility, core strength , and tone management. Physical Therapy Plan Frequency and Duration Frequency of Treatment 2x/Week Plan of Care Start Date 10/10/23 Plan of Care End Date 12/10/23 Therapeutic Interventions Therapeutic Interventions Gait Training,Home Exercise Program,Joint Mobilizations, Manual Therapy,Neuromuscular Re-education,Patient/Caregiver Education,Self-Care/Home Management,Soft Tissue Mobilization,Therapeutic Activities,Therapeutic Exercises Next Visit Focus/Plan Next Note Type Treatment Note Next Visit Plan Recheck HEP: Stretching LB and hip ER strengthening. Next tx incorporate shuttle recovery, STS, resisted side stepping. POC: hip STM, increasing activity tolerance
--- NOTE | 2023-10-26 09:45 | PT.OTN ---
Current Diagnoses Stiffness of left hip, not elsewhere classified (10/26/23) Spinal stenosis, thoracic region (10/26/23) Physical Therapy Treatment Note PT-OP-A Visit Information Start: 10/10/23 17:54 Freq: Status: Active Protocol: Document 10/26/23 09:06 SP (Rec: 10/26/23 09:51 SP [id number]) Out-Patient Physical Therapy Visit Information Visit Information Visit Type Treatment Note Visit Start Time 09:06 Visit Stop Time 09:45 Visit Number 6 Number of WATER SYSTEM OPERATOR Visits 1 Evaluation Information Evaluation Date 10/10/23 PT-OP-B Current Condition Start: 10/10/23 17:54 Freq: Status: Active Protocol: Document 10/10/23 09:45 DCW (Rec: 10/11/23 16:21 DCW [id number]) Current Condition History of Current Condition Onset Date Five month history Current Complaints Right hip pain History of Current Condition Pt is a 77 year old female presenting to skilled therapy five months s/p T12 laminectomy. Pt reports she is in severe, constant pain, although thinks it might be improving. Pt experiences burning iin her hip when walking more than a half block . Unable to right in a car further than a trip to [place]. Was previously experiencing some radicular pain, but that has gone away recently. Admits that bending causes pain that gets me right at the panty line. Has occasional severe discomfort in right calf, typically when trying to sleep. Has been having anxiety/depression about her recovery, was very hesitant with coming to PT, because she is worried about anyone touching her back. Treatment Goals Patient/Caregiver Goals I want to be able to walk good and to get through this pain, hopefully it will be gone someday. PT-OP-C Subjective Start: 10/10/23 17:54 Freq: Status: Active Protocol: Document 10/26/23 09:06 SP (Rec: 10/26/23 09:51 SP [id number]) OP-PT Subjective Patient Comments Patient Comments Pt reports was reallly sore after last tx, thinks went to low bend on leg machine last tx. PT-OP-K Range of Motion Start: 10/10/23 17:54 Freq: Status: Active Protocol: Document 10/10/23 09:45 DCW (Rec: 10/10/23 18:08 DCW [id number]) Lumbar Spine Range of Motion Lumbar Spine Active Degrees Testing Position Standing Flexion 50 Extension 30 Lateral Flexion Left 37 Lateral Flexion Right 37 Comments Lateral flexion measured incm from fingertips to floor PT-OP-L Special Tests Start: 10/10/23 17:54 Freq: Status: Active Protocol: Document 10/10/23 09:45 DCW (Rec: 10/10/23 18:08 DCW [id number]) Special Tests Lumbar Spine Special Tests Vertical Spine Loading Test Results Negative Compression Test Results Negative TATIANA Test Results Negative Straight Leg Raise Test Results Negative A-P Shearing Test Results Negative PT-OP-M Strength Start: 10/10/23 17:54 Freq: Status: Active Protocol: Document 10/10/23 09:45 DCW (Rec: 10/10/23 18:08 DCW [id number]) Hip Strength Hip Manual Muscle Testing Right Flexion (L2) 5 Normal Abduction 5 Normal Adduction 5 Normal External Rotation 4 Good Internal Rotation 5 Normal Left Flexion (L2) 5 Normal Abduction 5 Normal Adduction 5 Normal External Rotation 4 Good Internal Rotation 5 Normal PT-OP-Q Treatments Start: 10/10/23 17:54 Freq: Status: Active Protocol: Document 10/26/23 09:06 SP (Rec: 10/26/23 09:51 SP [id number]) Gym Equipment Shuttle Recovery Unilateral Squats Resistance 25# ( 1 navy band)- next tx trial 37 Reps/Time x15 Bilateral Squats Details blocked 90 deg knees to decrease knee discomfort Resistance 62# (2 navy) Reps/Time x15 reps Therapeutic Ball Pelvic tilts Exercise Details Pelvic tilts/circles Ball Size/Color Green - 65 cm Body Position Sitting Comments better lateral, challenging fwd/bwd Max verbal and tactile cues for pelvic tilt performance. Therapeutic Exercises Supine Exercises Hamstring Stretch Supine Exercise Name Hamstring Stretch Side bilateral Equipment Used grasp behind thigh, Lower leg toward ceiling Sitting Exercises resisted side stepping Sitting Exercise Name trialed in PT Resistance TB #2 at ankles Equipment Used near rail not used Reps/Minutes 10 ft x2 laps Comments cued slower eccentric return BLEs and DF foot clearance Standing Exercises quadruped Standing Exercise Name 1. cat camel 2. child's pose / c SB Resistance yoga mat Reps/Minutes 1. 5 reps x2 2. 3 breath hold x3 each side Comments improved pelvic tilt in this position- good on/off floor- added to HEP /cHO PT-OP-T Assessment and Plan Start: 10/10/23 17:54 Freq: Status: Active Protocol: Document 10/26/23 09:06 SP (Rec: 10/26/23 09:51 SP [id number]) Physical Therapy Assessment Goals Three Impairment Pt unable to sit in vehicle to drive farther than [place] [facility] Goal (LTG) Pt to demonstrate reduced hip pain with extended sitting by tolerating a [address] without increased hip pain. LTG Duration 12/10/23 Two Impairment Pt unable to walk more than 1/ 2 block without increased right hip pain/burn [facility] Goal (LTG) Pt to report ability to ambulate one mile around her neighborhood without increased hip pain in order to improve activity tolerance LTG Duration 12/10/23 One Impairment Pt does not have an appropriate home exercise program Short Term Goal (STG) Pt to be independent and compliant with an appropriate HEP STG Duration 11/11/23 Assessment Summary Assessment Pt good demonstration getting on/off floor. She was challenged with seated anterior/posterior pelvic tilts today. Improved in quadruped cat/camel and QL sidebend stretch /c cues for breath. Tactile cues for motion. Pt reported mid and lower back felt alot better end tx. WATER SYSTEM OPERATOR sent message add more appts into Sept. Physical Therapy Plan Frequency and Duration Frequency of Treatment 2x/Week Plan of Care Start Date 10/10/23 Plan of Care End Date 12/10/23 Therapeutic Interventions Therapeutic Interventions Gait Training,Home Exercise Program,Joint Mobilizations, Manual Therapy,Neuromuscular Re-education,Patient/Caregiver Education,Self-Care/Home Management,Soft Tissue Mobilization,Therapeutic Activities,Therapeutic Exercises Next Visit Focus/Plan Next Note Type Treatment Note Next Visit Plan Recheck HEP: Stretching LB and hip ER strengthening. Next tx incorporate shuttle recovery, STS, resisted side stepping. POC: hip STM, increasing activity tolerance
--- NOTE | 2023-11-01 08:13 | PT.OTN ---
Current Diagnoses Stiffness of left hip, not elsewhere classified (11/01/23) Spinal stenosis, thoracic region (11/01/23) Physical Therapy Treatment Note PT-OP-A Visit Information Start: 10/10/23 17:54 Freq: Status: Active Protocol: Document 11/01/23 07:33 SP (Rec: 11/01/23 08:18 SP [id number]) Out-Patient Physical Therapy Visit Information Visit Information Visit Type Treatment Note Visit Note attends with pt. Visit Start Time 07:33 Visit Stop Time 08:13 Visit Number 7 Number of WHARF LABOURER Visits 2 Evaluation Information Evaluation Date 10/10/23 PT-OP-B Current Condition Start: 10/10/23 17:54 Freq: Status: Active Protocol: Document 10/10/23 09:45 DCW (Rec: 10/11/23 16:21 DCW [id number]) Current Condition History of Current Condition Onset Date Five month history Current Complaints Right hip pain History of Current Condition Pt is a 77 year old female presenting to skilled therapy five months s/p T12 laminectomy. Pt reports she is in severe, constant pain, although thinks it might be improving. Pt experiences burning iin her hip when walking more than a half block . Unable to right in a car further than a trip to [place]. Was previously experiencing some radicular pain, but that has gone away recently. Admits that bending causes pain that gets me right at the panty line. Has occasional severe discomfort in right calf, typically when trying to sleep. Has been having anxiety/depression about her recovery, was very hesitant with coming to PT, because she is worried about anyone touching her back. Treatment Goals Patient/Caregiver Goals I want to be able to walk good and to get through this pain, hopefully it will be gone someday. PT-OP-C Subjective Start: 10/10/23 17:54 Freq: Status: Active Protocol: Document 11/01/23 07:33 SP (Rec: 11/01/23 08:18 SP [id number]) OP-PT Subjective Patient Comments Patient Comments Pt arrives with her folder of exercise HOs to utilize she is doing things correctly. She reports is sore over posterior L hip/buttocks/proxmal hamstring region later in evening after PT tx. She states it lasted into the next day. Pt and concerned how pt is sore after each treatment and affects how much activity she can do as day goes on. She arrives soreness continuing. Is compliant with HEP 2x /day. Pt did report that thinks her tied the band around her ankle to tight because it bothered her hips when doing standing ex. PT-OP-K Range of Motion Start: 10/10/23 17:54 Freq: Status: Active Protocol: Document 10/10/23 09:45 DCW (Rec: 10/10/23 18:08 DCW [id number]) Lumbar Spine Range of Motion Lumbar Spine Active Degrees Testing Position Standing Flexion 50 Extension 30 Lateral Flexion Left 37 Lateral Flexion Right 37 Comments Lateral flexion measured incm from fingertips to floor PT-OP-L Special Tests Start: 10/10/23 17:54 Freq: Status: Active Protocol: Document 10/10/23 09:45 DCW (Rec: 10/10/23 18:08 DCW [id number]) Special Tests Lumbar Spine Special Tests Vertical Spine Loading Test Results Negative Compression Test Results Negative TATIANA Test Results Negative Straight Leg Raise Test Results Negative A-P Shearing Test Results Negative PT-OP-M Strength Start: 10/10/23 17:54 Freq: Status: Active Protocol: Document 10/10/23 09:45 DCW (Rec: 10/10/23 18:08 DCW [id number]) Hip Strength Hip Manual Muscle Testing Right Flexion (L2) 5 Normal Abduction 5 Normal Adduction 5 Normal External Rotation 4 Good Internal Rotation 5 Normal Left Flexion (L2) 5 Normal Abduction 5 Normal Adduction 5 Normal External Rotation 4 Good Internal Rotation 5 Normal PT-OP-Q Treatments Start: 10/10/23 17:54 Freq: Status: Active Protocol: Document 11/01/23 07:33 SP (Rec: 11/01/23 08:18 SP [id number]) Gym Equipment Shuttle Recovery Unilateral Squats Resistance 25# ( 1 navy band)- next tx trial 37 Reps/Time x15 Bilateral Squats Details blocked 90 deg knees to decrease knee discomfort Resistance 62# (2 navy) Reps/Time 2x15 reps Therapeutic Exercises Supine Exercises Piriformis stretch Supine Exercise Name DC'd pt states is painful, does seated Sidelying Exercises Reverse Clamshell Sidelying Exercise Name Reverse Clamshell- HEP has HO Side bilateral Resistance Lv 2 at feet Reps/Minutes x15 (updated QD 10/31) Comments good muscle tiring Clamshell Sidelying Exercise Name Clamshell- HEP has HO Side bilateral Resistance Lv 2 at thighs Reps/Minutes x15 (updated QD 10/31) Comments good muscle tiring Sitting Exercises Trunk Flexion Sitting Exercise Name Seated trunk flexion - HEP has HO Equipment Used mesh chair Reps/Minutes 2 SH hold x10 reps Comments cued keep back straight, painfree range- no round shoulders. Piriformis Sitting Exercise Name Seated figure-4 stretch Side bilateral Reps/Minutes 15-20 sec Comments good stretch painfree, cues not over pressure into pain Standing Exercises resisted side stepping Standing Exercise Name review in PT- added to HEP /c HO Resistance TB #2 at shins Equipment Used near rail, not needed Reps/Minutes 10 ft x2 laps Comments improved self foot and postural corrections, no pain quadruped Standing Exercise Name 1. cat camel 2. child's pose / c SB- Reviewed HEP /c her HO Resistance yoga mat Reps/Minutes 1. 5 reps 2. 3 breath hold x3 each side Comments improved pelvic tilt /c VC & tactile cue low back lift/ lower floor Manual Therapy Treatment Consent Patient gave verbal consent for manual Yes treatment Soft Tissue Mobilization Piriformis Body Location B Piriformis Mobilization Type Strumming,Sustained Pressure Intensity/Depth Moderate Body Position Sidelying Comments gentle light STMs Lumbar Body Location Lumbar paraspinals Mobilization Type Strumming,Sustained Pressure Intensity/Depth Moderate Body Position Sidelying Comments gentle light STMs PT-OP-T Assessment and Plan Start: 10/10/23 17:54 Freq: Status: Active Protocol: Document 11/01/23 07:33 SP (Rec: 11/01/23 08:18 SP [id number]) Physical Therapy Assessment Goals Three Impairment Pt unable to sit in vehicle to drive farther than [place] Overhead Crane Operator Goal (LTG) Pt to demonstrate reduced hip pain with extended sitting by tolerating a [address] without increased hip pain. LTG Duration 12/10/23 Two Impairment Pt unable to walk more than 1/ 2 block without increased right hip pain/burn Fpc Goal (LTG) Pt to report ability to ambulate one mile around her neighborhood without increased hip pain in order to improve activity tolerance LTG Duration 12/10/23 One Impairment Pt does not have an appropriate home exercise program Short Term Goal (STG) Pt to be independent and compliant with an appropriate HEP STG Duration 11/11/23 Assessment Summary Assessment Pt improved form during quadruped /c cues and carryover. She responded well to resisted HEP with Modified band placement and both pt and verbalized understanding reduction frequency of HEP from BID to QD to see if will respond with less soreness. Pt reports little muscle effort during tx but not pain. Physical Therapy Plan Frequency and Duration Frequency of Treatment 2x/Week Plan of Care Start Date 10/10/23 Plan of Care End Date 12/10/23 Therapeutic Interventions Therapeutic Interventions Gait Training,Home Exercise Program,Joint Mobilizations, Manual Therapy,Neuromuscular Re-education,Patient/Caregiver Education,Self-Care/Home Management,Soft Tissue Mobilization,Therapeutic Activities,Therapeutic Exercises Next Visit Focus/Plan Next Note Type Treatment Note Next Visit Plan Recheck HEP: Stretching LB and hip ER strengthening. Next tx incorporate STS, resisted side stepping. POC: hip STM, increasing activity tolerance
--- NOTE | 2023-11-03 13:48 | PT.OTN ---
Current Diagnoses Stiffness of left hip, not elsewhere classified (11/03/23) Spinal stenosis, thoracic region (11/03/23) Physical Therapy Treatment Note PT-OP-A Visit Information Start: 10/10/23 17:54 Freq: Status: Active Protocol: Document 11/03/23 13:03 SP (Rec: 11/03/23 13:49 SP [id number]) Out-Patient Physical Therapy Visit Information Visit Information Visit Type Treatment Note Visit Note attends with pt. Visit Start Time 13:03 Visit Stop Time 13:48 Visit Number 8 Number of EMBOSSING CALENDER OPERATOR Visits 3 Evaluation Information Evaluation Date 10/10/23 PT-OP-B Current Condition Start: 10/10/23 17:54 Freq: Status: Active Protocol: Document 10/10/23 09:45 DCW (Rec: 10/11/23 16:21 DCW [id number]) Current Condition History of Current Condition Onset Date Five month history Current Complaints Right hip pain History of Current Condition Pt is a 77 year old female presenting to skilled therapy five months s/p T12 laminectomy. Pt reports she is in severe, constant pain, although thinks it might be improving. Pt experiences burning iin her hip when walking more than a half block . Unable to right in a car further than a trip to [place]. Was previously experiencing some radicular pain, but that has gone away recently. Admits that bending causes pain that gets me right at the panty line. Has occasional severe discomfort in right calf, typically when trying to sleep. Has been having anxiety/depression about her recovery, was very hesitant with coming to PT, because she is worried about anyone touching her back. Treatment Goals Patient/Caregiver Goals I want to be able to walk good and to get through this pain, hopefully it will be gone someday. PT-OP-C Subjective Start: 10/10/23 17:54 Freq: Status: Active Protocol: Document 11/03/23 13:03 SP (Rec: 11/03/23 13:49 SP [id number]) OP-PT Subjective Patient Comments Patient Comments Pt reports was still same soreness after last tx. She reduced her HEP to 1x/day and only 3 HEP for am then pm split up. She reports 6/10 coming in today in R hip. She reports soreness can get to be 8/10. PT-OP-K Range of Motion Start: 10/10/23 17:54 Freq: Status: Active Protocol: Document 10/10/23 09:45 DCW (Rec: 10/10/23 18:08 DCW [id number]) Lumbar Spine Range of Motion Lumbar Spine Active Degrees Testing Position Standing Flexion 50 Extension 30 Lateral Flexion Left 37 Lateral Flexion Right 37 Comments Lateral flexion measured incm from fingertips to floor PT-OP-L Special Tests Start: 10/10/23 17:54 Freq: Status: Active Protocol: Document 10/10/23 09:45 DCW (Rec: 10/10/23 18:08 DCW [id number]) Special Tests Lumbar Spine Special Tests Vertical Spine Loading Test Results Negative Compression Test Results Negative TATIANA Test Results Negative Straight Leg Raise Test Results Negative A-P Shearing Test Results Negative PT-OP-M Strength Start: 10/10/23 17:54 Freq: Status: Active Protocol: Document 10/10/23 09:45 DCW (Rec: 10/10/23 18:08 DCW [id number]) Hip Strength Hip Manual Muscle Testing Right Flexion (L2) 5 Normal Abduction 5 Normal Adduction 5 Normal External Rotation 4 Good Internal Rotation 5 Normal Left Flexion (L2) 5 Normal Abduction 5 Normal Adduction 5 Normal External Rotation 4 Good Internal Rotation 5 Normal PT-OP-Q Treatments Start: 10/10/23 17:54 Freq: Status: Active Protocol: Document 11/03/23 13:03 SP (Rec: 11/03/23 13:49 SP [id number]) Therapeutic Exercises Supine Exercises Piriformis stretch Supine Exercise Name good feedback stretch if gentle ROOM Sidelying Exercises Reverse Clamshell Sidelying Exercise Name Reverse Clamshell- HEP has HO Side bilateral Resistance yellow band #3 (from home)- at thighs Reps/Minutes x15 (updated QD 9/) Comments good muscle tiring Clamshell Sidelying Exercise Name Clamshell- HEP has HO Side bilateral Resistance yellow band #3 (from home)- at thighs Reps/Minutes x15 (updated QD 9/4) Comments good muscle tiring Sitting Exercises Piriformis Sitting Exercise Name DC due to pain at home Standing Exercises resisted side stepping Standing Exercise Name review in PT-reviewed /c HO Resistance yellow band #3 (from home)- at shins Equipment Used near rail, not needed Reps/Minutes 10 ft x2 laps Comments improved self foot and postural corrections, no pain Gait Training Gait Activity stairs Description future Manual Therapy Treatment Soft Tissue Mobilization Piriformis Body Location B proximal HS, distal Piriformis at femur Mobilization Type Rolling Intensity/Depth Superficial Body Position Hooklying Comments (90/90- lower leg over therapist shld) gentle light STMs Joint Mobilizations R hip Joint anteromedial, inferior Comments gentle distraction femur- use strap- discomfort at laterl hip- stopped PT-OP-T Assessment and Plan Start: 10/10/23 17:54 Freq: Status: Active Protocol: Document 11/03/23 13:03 SP (Rec: 11/03/23 13:49 SP [id number]) Physical Therapy Assessment Goals Three Impairment Pt unable to sit in vehicle to drive farther than [place] [facility] Goal (LTG) Pt to demonstrate reduced hip pain with extended sitting by tolerating a [address] without increased hip pain. LTG Duration 12/10/23 Two Impairment Pt unable to walk more than 1/ 2 block without increased right hip pain/burn Ingot Caster Goal (LTG) Pt to report ability to ambulate one mile around her neighborhood without increased hip pain in order to improve activity tolerance LTG Duration 12/10/23 One Impairment Pt does not have an appropriate home exercise program Short Term Goal (STG) Pt to be independent and compliant with an appropriate HEP STG Duration 11/11/23 Assessment Summary Assessment Pt continues to experience soreness after PT. PRovides feedback for pressure tolerance during manual STMs, better tolerated when supine 90 /90 hip& knees. No reports but good muscle tiring during ther ex in PT. No significant reduction insoreness when instructed HEP exercises to 1/ day vs 2 to see if would provide relief. Pt resports soreness inhibits her from return to walking. Will assess this next tx. Physical Therapy Plan Frequency and Duration Frequency of Treatment 2x/Week Plan of Care Start Date 10/10/23 Plan of Care End Date 12/10/23 Therapeutic Interventions Therapeutic Interventions Gait Training,Home Exercise Program,Joint Mobilizations, Manual Therapy,Neuromuscular Re-education,Patient/Caregiver Education,Self-Care/Home Management,Soft Tissue Mobilization,Therapeutic Activities,Therapeutic Exercises Next Visit Focus/Plan Next Note Type Treatment Note Next Visit Plan Recheck HEP: Stretching LB and hip ER strengthening. Next tx incorporate STS, resisted side stepping. Assess distance gait for safety carryover home with , her personal goal. POC: hip STM, increasing activity tolerance
--- NOTE | 2023-11-07 09:47 | PT.OTN ---
Current Diagnoses Stiffness of left hip, not elsewhere classified (11/07/23) Spinal stenosis, thoracic region (11/07/23) Physical Therapy Treatment Note PT-OP-A Visit Information Start: 10/10/23 17:54 Freq: Status: Active Protocol: Document 11/07/23 09:07 SP (Rec: 11/07/23 09:51 SP [id number]) Out-Patient Physical Therapy Visit Information Visit Information Visit Type Treatment Note Visit Note attends with pt. Visit Start Time 09:07 Visit Stop Time 09:47 Visit Number 9 Number of AUTOMATIC LATHE OPERATOR Visits 4 Evaluation Information Evaluation Date 10/10/23 PT-OP-B Current Condition Start: 10/10/23 17:54 Freq: Status: Active Protocol: Document 10/10/23 09:45 DCW (Rec: 10/11/23 16:21 DCW [id number]) Current Condition History of Current Condition Onset Date Five month history Current Complaints Right hip pain History of Current Condition Pt is a 77 year old female presenting to skilled therapy five months s/p T12 laminectomy. Pt reports she is in severe, constant pain, although thinks it might be improving. Pt experiences burning iin her hip when walking more than a half block . Unable to right in a car further than a trip to [place]. Was previously experiencing some radicular pain, but that has gone away recently. Admits that bending causes pain that gets me right at the panty line. Has occasional severe discomfort in right calf, typically when trying to sleep. Has been having anxiety/depression about her recovery, was very hesitant with coming to PT, because she is worried about anyone touching her back. Treatment Goals Patient/Caregiver Goals I want to be able to walk good and to get through this pain, hopefully it will be gone someday. PT-OP-C Subjective Start: 10/10/23 17:54 Freq: Status: Active Protocol: Document 11/07/23 09:07 SP (Rec: 11/07/23 09:51 SP [id number]) OP-PT Subjective Patient Comments Patient Comments Pt reports still sore for 2 days after last tx but also did some walking with errands with since last tx. PT-OP-K Range of Motion Start: 10/10/23 17:54 Freq: Status: Active Protocol: Document 10/10/23 09:45 DCW (Rec: 10/10/23 18:08 DCW [id number]) Lumbar Spine Range of Motion Lumbar Spine Active Degrees Testing Position Standing Flexion 50 Extension 30 Lateral Flexion Left 37 Lateral Flexion Right 37 Comments Lateral flexion measured incm from fingertips to floor PT-OP-L Special Tests Start: 10/10/23 17:54 Freq: Status: Active Protocol: Document 10/10/23 09:45 DCW (Rec: 10/10/23 18:08 DCW [id number]) Special Tests Lumbar Spine Special Tests Vertical Spine Loading Test Results Negative Compression Test Results Negative TATIANA Test Results Negative Straight Leg Raise Test Results Negative A-P Shearing Test Results Negative PT-OP-M Strength Start: 10/10/23 17:54 Freq: Status: Active Protocol: Document 10/10/23 09:45 DCW (Rec: 10/10/23 18:08 DCW [id number]) Hip Strength Hip Manual Muscle Testing Right Flexion (L2) 5 Normal Abduction 5 Normal Adduction 5 Normal External Rotation 4 Good Internal Rotation 5 Normal Left Flexion (L2) 5 Normal Abduction 5 Normal Adduction 5 Normal External Rotation 4 Good Internal Rotation 5 Normal PT-OP-Q Treatments Start: 10/10/23 17:54 Freq: Status: Active Protocol: Document 11/07/23 09:07 SP (Rec: 11/07/23 09:51 SP [id number]) Cardio Equipment Recumbent Stepper (Sci-Fit) Duration (Minutes) 8 Resistance 2 Seat Position 8 Other LEs only 45-50 RPMs, 0.89 steps Gym Equipment Shuttle Recovery Unilateral Squats Resistance 25#> 37# ( 1 navy band) Reps/Time x12 Bilateral Squats Details blocked 90 deg knees to decrease knee discomfort Resistance 62# (2 navy) Reps/Time x20 reps Shuttle Balance red Details WBOS Comments wt shift f/b HTs Sport Cord green Exercise Details fwd, bwd, lateral, step up 4 fwd & lateral 5 reps each side Cord/Resistance green Reps/Duration 5 each direction Therapeutic Exercises Standing Exercises step ups Standing Exercise Name fwd up/back down Equipment Used 8 step up Reps/Minutes x10 each LE leading Comments muscle tiring no pain Neuro Re-Education Treatment Balance Activities SLS Equipment TM rail Comments 2 sec each LE PT-OP-T Assessment and Plan Start: 10/10/23 17:54 Freq: Status: Active Protocol: Document 11/07/23 09:07 SP (Rec: 11/07/23 09:51 SP [id number]) Physical Therapy Assessment Goals Three Impairment Pt unable to sit in vehicle to drive farther than [facility] Goal (LTG) Pt to demonstrate reduced hip pain with extended sitting by tolerating a [address] without increased hip pain. LTG Duration 12/10/23 Two Impairment Pt unable to walk more than 1/ 2 block without increased right hip pain/burn Senior Application Programmer Goal (LTG) Pt to report ability to ambulate one mile around her neighborhood without increased hip pain in order to improve activity tolerance LTG Duration 12/10/23 One Impairment Pt does not have an appropriate home exercise program Short Term Goal (STG) Pt to be independent and compliant with an appropriate HEP STG Duration 11/11/23 Assessment Summary Assessment Tx focused on strengthening and funcitonal mobility. Pt reported less soreness end tx. Improved ability to perform 8 step ups today without UE support and controlled stepping against resistance. She was able to progress uneven activity on shuttle balance with head turns no UE support WBOS. Pt demonstrated decreased SLs time when assessed end tx. Pt would benefit from progression funcitonal strengthening activities and uneven surface gait to progress toward self goal return to walking with on uneven roads incline/declines and not have to sit due to pain. Physical Therapy Plan Frequency and Duration Frequency of Treatment 2x/Week Plan of Care Start Date 10/10/23 Plan of Care End Date 12/10/23 Therapeutic Interventions Therapeutic Interventions Gait Training,Home Exercise Program,Joint Mobilizations, Manual Therapy,Neuromuscular Re-education,Patient/Caregiver Education,Self-Care/Home Management,Soft Tissue Mobilization,Therapeutic Activities,Therapeutic Exercises Next Visit Focus/Plan Next Note Type Progress Note Next Visit Plan 10th visit PN next tx. Assess pain/soreness L hip. If tolerated next tx: Inititate obstacle course , uneven stepping for return to community trail walking endurance. Recheck HEP: Stretching LB and hip ER strengthening. Next tx incorporate STS, resisted side stepping. Assess distance gait for safety carryover home with , her personal goal. POC: hip STM, increasing activity tolerance
--- NOTE | 2023-11-07 09:47 | PT.OTN ---
Current Diagnoses Stiffness of left hip, not elsewhere classified (11/07/23) Spinal stenosis, thoracic region (11/07/23) Physical Therapy Treatment Note PT-OP-A Visit Information Start: 10/10/23 17:54 Freq: Status: Active Protocol: Document 11/07/23 09:07 SP (Rec: 11/07/23 09:51 SP [id number]) Out-Patient Physical Therapy Visit Information Visit Information Visit Type Treatment Note Visit Note attends with pt. Visit Start Time 09:07 Visit Stop Time 09:47 Visit Number 9 Number of SOA ARCHITECT Visits 4 Evaluation Information Evaluation Date 10/10/23 PT-OP-B Current Condition Start: 10/10/23 17:54 Freq: Status: Active Protocol: Document 10/10/23 09:45 DCW (Rec: 10/11/23 16:21 DCW [id number]) Current Condition History of Current Condition Onset Date Five month history Current Complaints Right hip pain History of Current Condition Pt is a 77 year old female presenting to skilled therapy five months s/p T12 laminectomy. Pt reports she is in severe, constant pain, although thinks it might be improving. Pt experiences burning iin her hip when walking more than a half block . Unable to right in a car further than a trip to [place]. Was previously experiencing some radicular pain, but that has gone away recently. Admits that bending causes pain that gets me right at the panty line. Has occasional severe discomfort in right calf, typically when trying to sleep. Has been having anxiety/depression about her recovery, was very hesitant with coming to PT, because she is worried about anyone touching her back. Treatment Goals Patient/Caregiver Goals I want to be able to walk good and to get through this pain, hopefully it will be gone someday. PT-OP-C Subjective Start: 10/10/23 17:54 Freq: Status: Active Protocol: Document 11/07/23 09:07 SP (Rec: 11/07/23 09:51 SP [id number]) OP-PT Subjective Patient Comments Patient Comments Pt reports still sore for 2 days after last tx but also did some walking with errands with since last tx. PT-OP-K Range of Motion Start: 10/10/23 17:54 Freq: Status: Active Protocol: Document 10/10/23 09:45 DCW (Rec: 10/10/23 18:08 DCW [id number]) Lumbar Spine Range of Motion Lumbar Spine Active Degrees Testing Position Standing Flexion 50 Extension 30 Lateral Flexion Left 37 Lateral Flexion Right 37 Comments Lateral flexion measured incm from fingertips to floor PT-OP-L Special Tests Start: 10/10/23 17:54 Freq: Status: Active Protocol: Document 10/10/23 09:45 DCW (Rec: 10/10/23 18:08 DCW [id number]) Special Tests Lumbar Spine Special Tests Vertical Spine Loading Test Results Negative Compression Test Results Negative TATIANA Test Results Negative Straight Leg Raise Test Results Negative A-P Shearing Test Results Negative PT-OP-M Strength Start: 10/10/23 17:54 Freq: Status: Active Protocol: Document 10/10/23 09:45 DCW (Rec: 10/10/23 18:08 DCW [id number]) Hip Strength Hip Manual Muscle Testing Right Flexion (L2) 5 Normal Abduction 5 Normal Adduction 5 Normal External Rotation 4 Good Internal Rotation 5 Normal Left Flexion (L2) 5 Normal Abduction 5 Normal Adduction 5 Normal External Rotation 4 Good Internal Rotation 5 Normal PT-OP-Q Treatments Start: 10/10/23 17:54 Freq: Status: Active Protocol: Document 11/07/23 09:07 SP (Rec: 11/07/23 09:51 SP [id number]) Cardio Equipment Recumbent Stepper (Sci-Fit) Duration (Minutes) 8 Resistance 2 Seat Position 8 Other LEs only 45-50 RPMs, 0.89 steps Gym Equipment Shuttle Recovery Unilateral Squats Resistance 25#> 37# ( 1 navy band) Reps/Time x12 Bilateral Squats Details blocked 90 deg knees to decrease knee discomfort Resistance 62# (2 navy) Reps/Time x20 reps Shuttle Balance red Details WBOS Comments wt shift f/b HTs Sport Cord green Exercise Details fwd, bwd, lateral, step up 4 fwd & lateral 5 reps each side Cord/Resistance green Reps/Duration 5 each direction Therapeutic Exercises Standing Exercises step ups Standing Exercise Name fwd up/back down Equipment Used 8 step up Reps/Minutes x10 each LE leading Comments muscle tiring no pain Neuro Re-Education Treatment Balance Activities SLS Equipment TM rail Comments 2 sec each LE PT-OP-T Assessment and Plan Start: 10/10/23 17:54 Freq: Status: Active Protocol: Document 11/07/23 09:07 SP (Rec: 11/07/23 09:51 SP [id number]) Physical Therapy Assessment Goals Three Impairment Pt unable to sit in vehicle to drive farther than [facility] Goal (LTG) Pt to demonstrate reduced hip pain with extended sitting by tolerating a [address] without increased hip pain. LTG Duration 12/10/23 Two Impairment Pt unable to walk more than 1/ 2 block without increased right hip pain/burn Reservation Agent Goal (LTG) Pt to report ability to ambulate one mile around her neighborhood without increased hip pain in order to improve activity tolerance LTG Duration 12/10/23 One Impairment Pt does not have an appropriate home exercise program Short Term Goal (STG) Pt to be independent and compliant with an appropriate HEP STG Duration 11/11/23 Assessment Summary Assessment Tx focused on strengthening and funcitonal mobility. Pt reported less soreness end tx. Improved ability to perform 8 step ups today without UE support and controlled stepping against resistance. She was able to progress uneven activity on shuttle balance with head turns no UE support WBOS. Pt demonstrated decreased SLs time when assessed end tx. Pt would benefit from progression funcitonal strengthening activities and uneven surface gait to progress toward self goal return to walking with on uneven roads incline/declines and not have to sit due to pain. Physical Therapy Plan Frequency and Duration Frequency of Treatment 2x/Week Plan of Care Start Date 10/10/23 Plan of Care End Date 12/10/23 Therapeutic Interventions Therapeutic Interventions Gait Training,Home Exercise Program,Joint Mobilizations, Manual Therapy,Neuromuscular Re-education,Patient/Caregiver Education,Self-Care/Home Management,Soft Tissue Mobilization,Therapeutic Activities,Therapeutic Exercises Next Visit Focus/Plan Next Note Type Treatment Note Next Visit Plan Assess pain/soreness. If tolerated next tx: Inititate obstacle course , uneven stepping for return to community trail walking endurance. Recheck HEP: Stretching LB and hip ER strengthening. Next tx incorporate STS, resisted side stepping. Assess distance gait for safety carryover home with , her personal goal. POC: hip STM, increasing activity tolerance
--- NOTE | 2023-11-10 12:02 | PT.OTN ---
Current Diagnoses Stiffness of left hip, not elsewhere classified (11/10/23) Spinal stenosis, thoracic region (11/10/23) Physical Therapy Treatment Note PT-OP-A Visit Information Start: 10/10/23 17:54 Freq: Status: Active Protocol: Document 11/10/23 11:15 DCW (Rec: 11/10/23 12:02 DCW [id number]) Out-Patient Physical Therapy Visit Information Visit Information Visit Type Progress Note Visit Note attends with pt. Visit Start Time 11:15 Visit Stop Time 12:00 Visit Number 10 Number of UR COORDINATOR Visits 0 Evaluation Information Evaluation Date 10/10/23 PT-OP-B Current Condition Start: 10/10/23 17:54 Freq: Status: Active Protocol: Document 10/10/23 09:45 DCW (Rec: 10/11/23 16:21 DCW [id number]) Current Condition History of Current Condition Onset Date Five month history Current Complaints Right hip pain History of Current Condition Pt is a 77 year old female presenting to skilled therapy five months s/p T12 laminectomy. Pt reports she is in severe, constant pain, although thinks it might be improving. Pt experiences burning iin her hip when walking more than a half block . Unable to right in a car further than a trip to [place]. Was previously experiencing some radicular pain, but that has gone away recently. Admits that bending causes pain that gets me right at the panty line. Has occasional severe discomfort in right calf, typically when trying to sleep. Has been having anxiety/depression about her recovery, was very hesitant with coming to PT, because she is worried about anyone touching her back. Treatment Goals Patient/Caregiver Goals I want to be able to walk good and to get through this pain, hopefully it will be gone someday. PT-OP-C Subjective Start: 10/10/23 17:54 Freq: Status: Active Protocol: Document 11/10/23 11:15 DCW (Rec: 11/10/23 12:02 DCW [id number]) OP-PT Subjective Patient Comments Patient Comments Pt and concerned with continued level of pain after activity. Pt notes pain is not as severe and burning as it was before surgery, but continues to feel tightness and pain in right posterior hip and lateral leg. PT-OP-K Range of Motion Start: 10/10/23 17:54 Freq: Status: Active Protocol: Document 11/10/23 11:15 DCW (Rec: 11/10/23 12:02 DCW [id number]) Lumbar Spine Range of Motion Lumbar Spine Active Degrees Testing Position Standing Flexion 65 Extension 35 Lateral Flexion Left 38 Lateral Flexion Right 38 Comments Lateral flexion measured incm from fingertips to floor PT-OP-L Special Tests Start: 10/10/23 17:54 Freq: Status: Active Protocol: Document 10/10/23 09:45 DCW (Rec: 10/10/23 18:08 DCW [id number]) Special Tests Lumbar Spine Special Tests Vertical Spine Loading Test Results Negative Compression Test Results Negative TATIANA Test Results Negative Straight Leg Raise Test Results Negative A-P Shearing Test Results Negative PT-OP-M Strength Start: 10/10/23 17:54 Freq: Status: Active Protocol: Document 10/10/23 09:45 DCW (Rec: 10/10/23 18:08 DCW [id number]) Hip Strength Hip Manual Muscle Testing Right Flexion (L2) 5 Normal Abduction 5 Normal Adduction 5 Normal External Rotation 4 Good Internal Rotation 5 Normal Left Flexion (L2) 5 Normal Abduction 5 Normal Adduction 5 Normal External Rotation 4 Good Internal Rotation 5 Normal PT-OP-Q Treatments Start: 10/10/23 17:54 Freq: Status: Active Protocol: Document 11/10/23 11:15 DCW (Rec: 11/10/23 12:02 DCW [id number]) Manual Therapy Treatment Consent Patient gave verbal consent for manual Yes treatment Soft Tissue Mobilization Piriformis Body Location R HS, Piriformis, ITB/TFL Mobilization Type Rolling Intensity/Depth Superficial Body Position Hooklying Comments (90/90- lower leg over therapist shld) gentle light STMs Self-Care/Home Management Treatment Education Other Education A&P of hip, bursitis. Education on stretching technique, limiting forceful movements, working on performing HEP without pain. PT-OP-T Assessment and Plan Start: 10/10/23 17:54 Freq: Status: Active Protocol: Document 11/10/23 11:15 DCW (Rec: 11/10/23 12:02 DCW [id number]) Physical Therapy Assessment Impairments Impairments Activity Tolerance,Functional Activities,Functional Mobility ,Gait,Pain,ROM,Strength,Tone Goals Three Impairment Pt unable to sit in vehicle to drive farther than [facility] Goal (LTG) Pt to demonstrate reduced hip pain with extended sitting by tolerating a [address] without increased hip pain. 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 Focused on decreasing intensity of HEP, as well as speaking with PCP regarding next cortisone injection. Good response to STM today, able to get up and ambulate without antalgia. Physical Therapy Plan Frequency and Duration Frequency of Treatment 2x/Week Plan of Care Start Date 10/10/23 Plan of Care End Date 12/10/23 Therapeutic Interventions Therapeutic Interventions Gait Training,Home Exercise Program,Joint Mobilizations, Manual Therapy,Neuromuscular Re-education,Patient/Caregiver Education,Self-Care/Home Management,Soft Tissue Mobilization,Therapeutic Activities,Therapeutic Exercises Next Visit Focus/Plan Next Note Type Treatment Note Next Visit Plan Assess pain/soreness L hip. If tolerated next tx: Inititate obstacle course , uneven stepping for return to community trail walking endurance. Recheck HEP: Stretching LB and hip ER strengthening. Next tx incorporate STS, resisted side stepping. Assess distance gait for safety carryover home with , her personal goal. POC: hip STM, increasing activity tolerance
--- NOTE | 2023-11-17 08:58 | PT.OTN ---
Current Diagnoses Stiffness of left hip, not elsewhere classified (11/17/23) Spinal stenosis, thoracic region (11/17/23) Physical Therapy Treatment Note PT-OP-A Visit Information Start: 10/10/23 17:54 Freq: Status: Active Protocol: Document 11/17/23 08:17 SP (Rec: 11/17/23 09:02 SP [id number]) Out-Patient Physical Therapy Visit Information Visit Information Visit Type Treatment Note Visit Note 04/08 after PN Visit Start Time 08:17 Visit Stop Time 08:58 Visit Number 11 Number of MAIN ENTREE COOK AND CASHIER Visits 1 Evaluation Information Evaluation Date 10/10/23 PT-OP-B Current Condition Start: 10/10/23 17:54 Freq: Status: Active Protocol: Document 10/10/23 09:45 DCW (Rec: 10/11/23 16:21 DCW [id number]) Current Condition History of Current Condition Onset Date Five month history Current Complaints Right hip pain History of Current Condition Pt is a 77 year old female presenting to skilled therapy five months s/p T12 laminectomy. Pt reports she is in severe, constant pain, although thinks it might be improving. Pt experiences burning iin her hip when walking more than a half block . Unable to right in a car further than a trip to [place]. Was previously experiencing some radicular pain, but that has gone away recently. Admits that bending causes pain that gets me right at the panty line. Has occasional severe discomfort in right calf, typically when trying to sleep. Has been having anxiety/depression about her recovery, was very hesitant with coming to PT, because she is worried about anyone touching her back. Treatment Goals Patient/Caregiver Goals I want to be able to walk good and to get through this pain, hopefully it will be gone someday. PT-OP-C Subjective Start: 10/10/23 17:54 Freq: Status: Active Protocol: Document 11/17/23 08:17 SP (Rec: 11/17/23 09:02 SP [id number]) OP-PT Subjective Patient Comments Patient Comments Pt reports still little across both proximal HS but states has been less since stopped using theraband for side stepping. She was able to walk at [facility] on hard sand and was just little tired no pain . She has an appt with Dr Mulligan next week. Has a call into Dr Bello about potential injection in R hip due to PT stated last tx potential bursitis. She stated stopped using band with side stepping and not having pain. PT-OP-K Range of Motion Start: 10/10/23 17:54 Freq: Status: Active Protocol: Document 11/10/23 11:15 DCW (Rec: 11/10/23 12:02 DCW [id number]) Lumbar Spine Range of Motion Lumbar Spine Active Degrees Testing Position Standing Flexion 65 Extension 35 Lateral Flexion Left 38 Lateral Flexion Right 38 Comments Lateral flexion measured incm from fingertips to floor PT-OP-L Special Tests Start: 10/10/23 17:54 Freq: Status: Active Protocol: Document 10/10/23 09:45 DCW (Rec: 10/10/23 18:08 DCW [id number]) Special Tests Lumbar Spine Special Tests Vertical Spine Loading Test Results Negative Compression Test Results Negative TATIANA Test Results Negative Straight Leg Raise Test Results Negative A-P Shearing Test Results Negative PT-OP-M Strength Start: 10/10/23 17:54 Freq: Status: Active Protocol: Document 10/10/23 09:45 DCW (Rec: 10/10/23 18:08 DCW [id number]) Hip Strength Hip Manual Muscle Testing Right Flexion (L2) 5 Normal Abduction 5 Normal Adduction 5 Normal External Rotation 4 Good Internal Rotation 5 Normal Left Flexion (L2) 5 Normal Abduction 5 Normal Adduction 5 Normal External Rotation 4 Good Internal Rotation 5 Normal PT-OP-Q Treatments Start: 10/10/23 17:54 Freq: Status: Active Protocol: Document 11/17/23 08:17 SP (Rec: 11/17/23 09:02 SP [id number]) Gym Equipment Shuttle Balance red Details WBOS, stride stance Comments wt shift f/b HTs CG-5%A cues for self corrections for stability Therapeutic Exercises Supine Exercises Hamstring Stretch Supine Exercise Name Hamstring Stretch & /c AP Side bilateral Equipment Used grasp behind thigh, Lower leg toward ceiling Reps/Minutes x10 APs Comments good gentle HS stretch reported Piriformis stretch Supine Exercise Name HEP reviewed Side bilateral Reps/Minutes 20-25 SH Comments Good gentle stretch no painreported Standing Exercises resisted side stepping Standing Exercise Name review in PT-reviewed /c HO Resistance AROM (performing at home no TB - no pain better) Equipment Used near rail Reps/Minutes 15 ft x4 laps Comments no pain warm up before uneven activity Manual Therapy Treatment Consent Patient gave verbal consent for manual Yes treatment Soft Tissue Mobilization Piriformis Body Location R prox HS, Piriformis Mobilization Type Rolling Intensity/Depth Superficial Body Position Hooklying Comments foot on table gentle light STMs Neuro Re-Education Treatment Balance Activities hurdles Details fwd Equipment foam and hurdles x4 Comments CGA- cued rhomoid fac/tall posture- wt shift into advanced LE, slower pacing, watch karishma - Initiate foot caught karishma x1 5% A recovery support- improvd stability with reps. uneven obstacle course Details fwd, lateral Equipment mat over: discs, pods, bal board x3 laps then added hurdles Reps/Duration 4 laps fwd, 2 laps lateral Comments cued slower pacing, step to over hurdles look for clearing each LE. Cued tall posture and wt shift into advanced LE. PT-OP-T Assessment and Plan Start: 10/10/23 17:54 Freq: Status: Active Protocol: Document 11/17/23 08:17 SP (Rec: 11/17/23 09:02 SP [id number]) Physical Therapy Assessment Goals Three Impairment Pt unable to sit in vehicle to drive farther than [place] Goal (LTG) Pt to demonstrate reduced hip pain with extended sitting by tolerating a [address] without increased hip pain. LTG Duration 12/10/23 Two Impairment Pt unable to walk more than 1/ 2 block without increased right hip pain/burn Halfway Goal (LTG) Pt to report ability to ambulate one mile around her neighborhood without increased hip pain in order to improve activity tolerance LTG Duration 12/10/23 One Impairment Pt does not have an appropriate home exercise program Short Term Goal (STG) Pt to be independent and compliant with an appropriate HEP STG Duration 11/11/23 Assessment Summary Assessment Pt responded well to gentle massage to R hip/HS, tension reduction. REviewed self stretching which states is her go to and helpful. No adverse affects to AROM side stepping repeated laps. Initiated balance activities today with cues for taller posture over BAILEE withslower pacing and stability before stepping improved with less to no foot catching hurdles and able to progress over uneven mat. She reports no pain or soreness end tx. Physical Therapy Plan Frequency and Duration Frequency of Treatment 2x/Week Plan of Care Start Date 10/10/23 Plan of Care End Date 12/10/23 Therapeutic Interventions Therapeutic Interventions Gait Training,Home Exercise Program,Joint Mobilizations, Manual Therapy,Neuromuscular Re-education,Patient/Caregiver Education,Self-Care/Home Management,Soft Tissue Mobilization,Therapeutic Activities,Therapeutic Exercises Next Visit Focus/Plan Next Note Type Treatment Note Next Visit Plan Assess pain/soreness L hip. Assess last tx Inititate obstacle course and if tolerate continue, uneven stepping for return to community trail walking endurance. Recheck HEP: Stretching LB and hip ER strengthening. Next tx incorporate STS, resisted side stepping. Assess distance gait for safety carryover home with , her personal goal. POC: hip STM, increasing activity tolerance
--- NOTE | 2023-11-22 17:28 | PT.OTN ---
Current Diagnoses Stiffness of left hip, not elsewhere classified (11/22/23) Spinal stenosis, thoracic region (11/22/23) Physical Therapy Treatment Note PT-OP-A Visit Information Start: 10/10/23 17:54 Freq: Status: Active Protocol: Document 11/22/23 16:45 DCW (Rec: 11/22/23 17:28 DCW [id number]) Out-Patient Physical Therapy Visit Information Visit Information Visit Type Treatment Note Visit Note attends with pt. 05/06 after PN Visit Start Time 16:45 Visit Stop Time 17:30 Visit Number 12 Number of HAND SHOES SEWER Visits 0 Evaluation Information Evaluation Date 10/10/23 PT-OP-B Current Condition Start: 10/10/23 17:54 Freq: Status: Active Protocol: Document 10/10/23 09:45 DCW (Rec: 10/11/23 16:21 DCW [id number]) Current Condition History of Current Condition Onset Date Five month history Current Complaints Right hip pain History of Current Condition Pt is a 77 year old female presenting to skilled therapy five months s/p T12 laminectomy. Pt reports she is in severe, constant pain, although thinks it might be improving. Pt experiences burning iin her hip when walking more than a half block . Unable to right in a car further than a trip to [place]. Was previously experiencing some radicular pain, but that has gone away recently. Admits that bending causes pain that gets me right at the panty line. Has occasional severe discomfort in right calf, typically when trying to sleep. Has been having anxiety/depression about her recovery, was very hesitant with coming to PT, because she is worried about anyone touching her back. Treatment Goals Patient/Caregiver Goals I want to be able to walk good and to get through this pain, hopefully it will be gone someday. PT-OP-C Subjective Start: 10/10/23 17:54 Freq: Status: Active Protocol: Document 11/22/23 16:45 DCW (Rec: 11/22/23 17:28 DCW [id number]) OP-PT Subjective Patient Comments Patient Comments Saw surgeon yesterday, noted continuing nerve pain in the posterior hip, and has ongoing arthritis pain. Otherwise, feels things are going well, just still recovering from the surgery. Did get some hyrdocodine for PRN. None taken today. PT-OP-K Range of Motion Start: 10/10/23 17:54 Freq: Status: Active Protocol: Document 11/10/23 11:15 DCW (Rec: 11/10/23 12:02 DCW [id number]) Lumbar Spine Range of Motion Lumbar Spine Active Degrees Testing Position Standing Flexion 65 Extension 35 Lateral Flexion Left 38 Lateral Flexion Right 38 Comments Lateral flexion measured incm from fingertips to floor PT-OP-L Special Tests Start: 10/10/23 17:54 Freq: Status: Active Protocol: Document 10/10/23 09:45 DCW (Rec: 10/10/23 18:08 DCW [id number]) Special Tests Lumbar Spine Special Tests Vertical Spine Loading Test Results Negative Compression Test Results Negative TATIANA Test Results Negative Straight Leg Raise Test Results Negative A-P Shearing Test Results Negative PT-OP-M Strength Start: 10/10/23 17:54 Freq: Status: Active Protocol: Document 10/10/23 09:45 DCW (Rec: 10/10/23 18:08 DCW [id number]) Hip Strength Hip Manual Muscle Testing Right Flexion (L2) 5 Normal Abduction 5 Normal Adduction 5 Normal External Rotation 4 Good Internal Rotation 5 Normal Left Flexion (L2) 5 Normal Abduction 5 Normal Adduction 5 Normal External Rotation 4 Good Internal Rotation 5 Normal PT-OP-Q Treatments Start: 10/10/23 17:54 Freq: Status: Active Protocol: Document 11/22/23 16:45 DCW (Rec: 11/22/23 17:28 DCW [id number]) Therapeutic Exercises Standing Exercises Hip Hiking Standing Exercise Name Hip Hiking Side bilateral Equipment Used 5 step step ups Standing Exercise Name Lateral step-ups Side bilateral Equipment Used 5 step Reps/Minutes x10 each LE leading Comments muscle tiring no pain Manual Therapy Treatment Consent Patient gave verbal consent for manual Yes treatment Soft Tissue Mobilization Piriformis Body Location R HS, Piriformis, ITB/TFL Mobilization Type Strumming,Sustained Pressure, Trigger Point Release Intensity/Depth Superficial Body Position Hooklying Comments gentle light STMs Neuro Re-Education Treatment Balance Activities hurdles Details fwd, lateral Equipment foam and hurdles x6 Comments CGA- cued posture- wt shift into advanced LE, slower pacing, watch karishma SLS Details SLS Comments 5-10 seconds each foot PT-OP-T Assessment and Plan Start: 10/10/23 17:54 Freq: Status: Active Protocol: Document 11/22/23 16:45 DCW (Rec: 11/22/23 17:28 DCW [id number]) Physical Therapy Assessment Impairments Impairments Activity Tolerance,Functional Activities,Functional Mobility ,Gait,Pain,ROM,Strength,Tone Goals Three Impairment Pt unable to sit in vehicle to drive farther than [place] [employer] Goal (LTG) Pt to demonstrate reduced hip pain with extended sitting by tolerating a [address] without increased hip pain. LTG Duration 12/10/23 Two Impairment Pt unable to walk more than 1/ 2 block without increased right hip pain/burn [employer] Goal (LTG) Pt to report ability to ambulate one mile around her neighborhood without increased hip pain in order to improve activity tolerance LTG Duration 12/10/23 One Impairment Pt does not have an appropriate home exercise program Short Term Goal (STG) Pt to be independent and compliant with an appropriate HEP STG Duration 11/11/23 Assessment Summary Assessment Pt showing significant improvement with balance, able to maintain SLS for 12 seconds on each foot. Good response to STM, showing some improvement in mobility and tolerance to activity. Physical Therapy Plan Frequency and Duration Frequency of Treatment 2x/Week Plan of Care Start Date 10/10/23 Plan of Care End Date 12/10/23 Therapeutic Interventions Therapeutic Interventions Gait Training,Home Exercise Program,Joint Mobilizations, Manual Therapy,Neuromuscular Re-education,Patient/Caregiver Education,Self-Care/Home Management,Soft Tissue Mobilization,Therapeutic Activities,Therapeutic Exercises Next Visit Focus/Plan Next Note Type Treatment Note Next Visit Plan Assess pain/soreness L hip. Assess last tx Initiate obstacle course and if tolerate continue, uneven stepping for return to community trail walking endurance. Recheck HEP: Stretching LB and hip ER strengthening. Next tx incorporate STS, resisted side stepping. Assess distance gait for safety carryover home with , her personal goal. POC: hip STM, increasing activity tolerance
--- NOTE | 2023-11-24 15:13 | PT.OTN ---
Current Diagnoses Stiffness of left hip, not elsewhere classified (11/24/23) Spinal stenosis, thoracic region (11/24/23) Physical Therapy Treatment Note PT-OP-A Visit Information Start: 10/10/23 17:54 Freq: Status: Active Protocol: Document 11/24/23 14:33 SP (Rec: 11/24/23 15:34 SP [id number]) Out-Patient Physical Therapy Visit Information Visit Information Visit Type Treatment Note Visit Note attends with pt. 06/06 after PN Visit Start Time 14:33 Visit Stop Time 15:13 Visit Number 13 Number of DIRECTOR OF DIETARY Visits 2 Evaluation Information Evaluation Date 10/10/23 PT-OP-B Current Condition Start: 10/10/23 17:54 Freq: Status: Active Protocol: Document 10/10/23 09:45 DCW (Rec: 10/11/23 16:21 DCW [id number]) Current Condition History of Current Condition Onset Date Five month history Current Complaints Right hip pain History of Current Condition Pt is a 77 year old female presenting to skilled therapy five months s/p T12 laminectomy. Pt reports she is in severe, constant pain, although thinks it might be improving. Pt experiences burning iin her hip when walking more than a half block . Unable to right in a car further than a trip to [place]. Was previously experiencing some radicular pain, but that has gone away recently. Admits that bending causes pain that gets me right at the panty line. Has occasional severe discomfort in right calf, typically when trying to sleep. Has been having anxiety/depression about her recovery, was very hesitant with coming to PT, because she is worried about anyone touching her back. Treatment Goals Patient/Caregiver Goals I want to be able to walk good and to get through this pain, hopefully it will be gone someday. PT-OP-C Subjective Start: 10/10/23 17:54 Freq: Status: Active Protocol: Document 11/24/23 14:33 SP (Rec: 11/24/23 15:34 SP [id number]) OP-PT Subjective Patient Comments Patient Comments Pt stated was pleased with SLS could do 10 sec in PT but then later home could only do 3 sec. She reports still sore arrival and not as steady today. SHe reports understands better from discussion with Dr Mulligan last week. Pain havign could be from healing nerves and arthritis in back. PT-OP-K Range of Motion Start: 10/10/23 17:54 Freq: Status: Active Protocol: Document 11/10/23 11:15 DCW (Rec: 11/10/23 12:02 DCW [id number]) Lumbar Spine Range of Motion Lumbar Spine Active Degrees Testing Position Standing Flexion 65 Extension 35 Lateral Flexion Left 38 Lateral Flexion Right 38 Comments Lateral flexion measured incm from fingertips to floor PT-OP-L Special Tests Start: 10/10/23 17:54 Freq: Status: Active Protocol: Document 10/10/23 09:45 DCW (Rec: 10/10/23 18:08 DCW [id number]) Special Tests Lumbar Spine Special Tests Vertical Spine Loading Test Results Negative Compression Test Results Negative TATIANA Test Results Negative Straight Leg Raise Test Results Negative A-P Shearing Test Results Negative PT-OP-M Strength Start: 10/10/23 17:54 Freq: Status: Active Protocol: Document 10/10/23 09:45 DCW (Rec: 10/10/23 18:08 DCW [id number]) Hip Strength Hip Manual Muscle Testing Right Flexion (L2) 5 Normal Abduction 5 Normal Adduction 5 Normal External Rotation 4 Good Internal Rotation 5 Normal Left Flexion (L2) 5 Normal Abduction 5 Normal Adduction 5 Normal External Rotation 4 Good Internal Rotation 5 Normal PT-OP-Q Treatments Start: 10/10/23 17:54 Freq: Status: Active Protocol: Document 11/24/23 14:33 SP (Rec: 11/24/23 15:34 SP [id number]) Therapeutic Exercises Supine Exercises core Supine Exercise Name DL table top, alternating foot taps to table Side bilateral Resistance AROM Reps/Minutes x10 Comments no pain inLB, tiring muscles in BLEs reported- review next- add to HEP next DKTC Supine Exercise Name self Stretch review Side bilateral Reps/Minutes 30 SH Comments good feedback stretch in LB and hips Hamstring Stretch Supine Exercise Name 1. Hamstring Stretch 2. HS stretch /c AP Side bilateral Equipment Used grasp behind thigh, Lower leg toward ceiling Reps/Minutes 1. 30 SH stretch 2. x10 APs Comments good gentle HS stretch reported Piriformis stretch Supine Exercise Name HEP reviewed Side bilateral Reps/Minutes 30 SH Comments Good gentle stretch no pain reange reported Standing Exercises Hip Hiking Standing Exercise Name Hip Hiking Side bilateral Equipment Used 4 step, rail support Reps/Minutes x10 each side Comments tactile cues trunk QL lift, anterior stationary knee ext support no bend step ups Standing Exercise Name Lateral step-ups Side bilateral Equipment Used 6 step, light contact rail Reps/Minutes x10 each LE leading Comments cued tall, TKE and glut drive into WB into RLE, rail support, slower ecc. Neuro Re-Education Treatment Balance Activities balance beam Details Min> CGA Equipment long bal beam Reps/Duration x6 laps Comments cued slower pacing, tall /c scap fac and TA, foot centered on beam- improved CGA last 3 laps hurdles Details fwd Surface CG- 5%A Equipment hurdles x6, foam, pods, rocker board Comments Min>CGA cued posture- wt shift into advanced LE, slower pacing, balance stance LE before take step. Improved stabiltiy with reps PT-OP-T Assessment and Plan Start: 10/10/23 17:54 Freq: Status: Active Protocol: Document 11/24/23 14:33 SP (Rec: 11/24/23 15:34 SP [id number]) Physical Therapy Assessment Goals Three Impairment Pt unable to sit in vehicle to drive farther than [place] Alf Goal (LTG) Pt to demonstrate reduced hip pain with extended sitting by tolerating a [address] without increased hip pain. LTG Duration 12/10/23 Two Impairment Pt unable to walk more than 1/ 2 block without increased right hip pain/burn Alf Goal (LTG) Pt to report ability to ambulate one mile around her neighborhood without increased hip pain in order to improve activity tolerance LTG Duration 12/10/23 One Impairment Pt does not have an appropriate home exercise program Short Term Goal (STG) Pt to be independent and compliant with an appropriate HEP STG Duration 11/11/23 Assessment Summary Assessment Pt improved stability with more advanced balance activities uneven hurdles and balance beam today, improved with cues for elongated taller posture with scap complex and TA engagement with slower pacing into each LE stance time less Min> CGA at gait belt support provided. Pt challenge coordinating hip hike on step, tactile and VCs with feedback improved QL facilitation on moving side and glut med on stationary LE with light contact rail support for stability. Pt reports no pain or soreness end tx, I feel pretty good. Physical Therapy Plan Next Visit Focus/Plan Next Note Type Treatment Note Next Visit Plan Assess pain/soreness L hip. HEP and progress balance as tolerated. Obstacle course and uneven stepping for return to community trail walking endurance. Recheck HEP: Stretching LB and hip ER strengthening. Next tx incorporate STS, resisted side stepping. Assess distance gait for safety carryover home with , her personal goal. POC: hip STM, increasing activity tolerance
--- NOTE | 2023-11-24 15:13 | PT.OTN ---
Current Diagnoses Stiffness of left hip, not elsewhere classified (11/24/23) Spinal stenosis, thoracic region (11/24/23) Physical Therapy Treatment Note PT-OP-A Visit Information Start: 10/10/23 17:54 Freq: Status: Active Protocol: Document 11/24/23 14:33 SP (Rec: 11/24/23 15:34 SP [id number]) Out-Patient Physical Therapy Visit Information Visit Information Visit Type Treatment Note Visit Note attends with pt. 06/06 after PN Visit Start Time 14:33 Visit Stop Time 15:13 Visit Number 13 Number of INBOUND INGREDIENT LOGISTICS SPECIALIST Visits 2 Evaluation Information Evaluation Date 10/10/23 PT-OP-B Current Condition Start: 10/10/23 17:54 Freq: Status: Active Protocol: Document 10/10/23 09:45 DCW (Rec: 10/11/23 16:21 DCW [id number]) Current Condition History of Current Condition Onset Date Five month history Current Complaints Right hip pain History of Current Condition Pt is a 77 year old female presenting to skilled therapy five months s/p T12 laminectomy. Pt reports she is in severe, constant pain, although thinks it might be improving. Pt experiences burning iin her hip when walking more than a half block . Unable to right in a car further than a trip to [place]. Was previously experiencing some radicular pain, but that has gone away recently. Admits that bending causes pain that gets me right at the panty line. Has occasional severe discomfort in right calf, typically when trying to sleep. Has been having anxiety/depression about her recovery, was very hesitant with coming to PT, because she is worried about anyone touching her back. Treatment Goals Patient/Caregiver Goals I want to be able to walk good and to get through this pain, hopefully it will be gone someday. PT-OP-C Subjective Start: 10/10/23 17:54 Freq: Status: Active Protocol: Document 11/24/23 14:33 SP (Rec: 11/24/23 15:34 SP [id number]) OP-PT Subjective Patient Comments Patient Comments Pt stated was pleased with SLS could do 10 sec in PT but then later home could only do 3 sec. She reports still sore arrival and not as steady today. SHe reports understands better from discussion with Dr Mulligan last week. Pain havign could be from healing nerves and arthritis in back. PT-OP-K Range of Motion Start: 10/10/23 17:54 Freq: Status: Active Protocol: Document 11/10/23 11:15 DCW (Rec: 11/10/23 12:02 DCW [id number]) Lumbar Spine Range of Motion Lumbar Spine Active Degrees Testing Position Standing Flexion 65 Extension 35 Lateral Flexion Left 38 Lateral Flexion Right 38 Comments Lateral flexion measured incm from fingertips to floor PT-OP-L Special Tests Start: 10/10/23 17:54 Freq: Status: Active Protocol: Document 10/10/23 09:45 DCW (Rec: 10/10/23 18:08 DCW [id number]) Special Tests Lumbar Spine Special Tests Vertical Spine Loading Test Results Negative Compression Test Results Negative TATIANA Test Results Negative Straight Leg Raise Test Results Negative A-P Shearing Test Results Negative PT-OP-M Strength Start: 10/10/23 17:54 Freq: Status: Active Protocol: Document 10/10/23 09:45 DCW (Rec: 10/10/23 18:08 DCW [id number]) Hip Strength Hip Manual Muscle Testing Right Flexion (L2) 5 Normal Abduction 5 Normal Adduction 5 Normal External Rotation 4 Good Internal Rotation 5 Normal Left Flexion (L2) 5 Normal Abduction 5 Normal Adduction 5 Normal External Rotation 4 Good Internal Rotation 5 Normal PT-OP-Q Treatments Start: 10/10/23 17:54 Freq: Status: Active Protocol: Document 11/24/23 14:33 SP (Rec: 11/24/23 15:34 SP [id number]) Therapeutic Exercises Supine Exercises core Supine Exercise Name DL table top, alternating foot taps to table Side bilateral Resistance AROM Reps/Minutes x10 Comments no pain inLB, tiring muscles in BLEs reported- review next- add to HEP next DKTC Supine Exercise Name self Stretch review Side bilateral Reps/Minutes 30 SH Comments good feedback stretch in LB and hips Hamstring Stretch Supine Exercise Name 1. Hamstring Stretch 2. HS stretch /c AP Side bilateral Equipment Used grasp behind thigh, Lower leg toward ceiling Reps/Minutes 1. 30 SH stretch 2. x10 APs Comments good gentle HS stretch reported Piriformis stretch Supine Exercise Name HEP reviewed Side bilateral Reps/Minutes 30 SH Comments Good gentle stretch no pain reange reported Standing Exercises Hip Hiking Standing Exercise Name Hip Hiking Side bilateral Equipment Used 4 step, rail support Reps/Minutes x10 each side Comments tactile cues trunk QL lift, anterior stationary knee ext support no bend step ups Standing Exercise Name Lateral step-ups Side bilateral Equipment Used 6 step, light contact rail Reps/Minutes x10 each LE leading Comments cued tall, TKE and glut drive into WB into RLE, rail support, slower ecc. Neuro Re-Education Treatment Balance Activities balance beam Details Min> CGA Equipment long bal beam Reps/Duration x6 laps Comments cued slower pacing, tall /c scap fac and TA, foot centered on beam- improved CGA last 3 laps hurdles Details fwd Surface CG- 5%A Equipment hurdles x6, foam, pods, rocker board Comments Min>CGA cued posture- wt shift into advanced LE, slower pacing, balance stance LE before take step. Improved stabiltiy with reps Self-Care/Home Management Treatment Education Patient Education Home Exercise Program Other Education Short time discussion inquiry by pt and , suggest cardio equipment for home. INBOUND INGREDIENT LOGISTICS SPECIALIST discussed use of recubent bike: full revolution, stepper , elliptical- provided screen shot how can search online, do home work. Told them in clinic we have all 3 and all have slight differences that have benefit depending on resistance and PRM per person. PT-OP-T Assessment and Plan Start: 10/10/23 17:54 Freq: Status: Active Protocol: Document 11/24/23 14:33 SP (Rec: 11/24/23 15:34 SP [id number]) Physical Therapy Assessment Goals Three Impairment Pt unable to sit in vehicle to drive farther than [place] [employer] Goal (LTG) Pt to demonstrate reduced hip pain with extended sitting by tolerating a [address] without increased hip pain. LTG Duration 12/10/23 Two Impairment Pt unable to walk more than 1/ 2 block without increased right hip pain/burn Mcc Goal (LTG) Pt to report ability to ambulate one mile around her neighborhood without increased hip pain in order to improve activity tolerance LTG Duration 12/10/23 One Impairment Pt does not have an appropriate home exercise program Short Term Goal (STG) Pt to be independent and compliant with an appropriate HEP STG Duration 11/11/23 Assessment Summary Assessment Pt improved stability with more advanced balance activities uneven hurdles and balance beam today, improved with cues for elongated taller posture with scap complex and TA engagement with slower pacing into each LE stance time less Min> CGA at gait belt support provided. Pt challenge coordinating hip hike on step, tactile and VCs with feedback improved QL facilitation on moving side and glut med on stationary LE with light contact rail support for stability. Pt reports no pain or soreness end tx, I feel pretty good. Proviced info on recumbent bike can do research for home. Physical Therapy Plan Next Visit Focus/Plan Next Note Type Treatment Note Next Visit Plan Assess pain/soreness L hip. HEP and progress balance as tolerated. Obstacle course and uneven stepping for return to community trail walking endurance. Recheck HEP: Stretching LB and hip ER strengthening. Next tx incorporate STS, resisted side stepping. Assess distance gait for safety carryover home with , her personal goal. POC: hip STM, increasing activity tolerance
--- NOTE | 2023-11-27 08:15 | PT.OTN ---
Current Diagnoses Stiffness of left hip, not elsewhere classified (11/27/23) Spinal stenosis, thoracic region (11/27/23) Physical Therapy Treatment Note PT-OP-A Visit Information Start: 10/10/23 17:54 Freq: Status: Active Protocol: Document 11/27/23 07:30 SP (Rec: 11/27/23 08:19 SP [id number]) Out-Patient Physical Therapy Visit Information Visit Information Visit Type Treatment Note Visit Note attends with pt. 5/10 after PN Visit Start Time 07:30 Visit Stop Time 08:15 Visit Number 14 Number of SAMPLE STITCHER Visits 3 Evaluation Information Evaluation Date 10/10/23 PT-OP-B Current Condition Start: 10/10/23 17:54 Freq: Status: Active Protocol: Document 10/10/23 09:45 DCW (Rec: 10/11/23 16:21 DCW [id number]) Current Condition History of Current Condition Onset Date Five month history Current Complaints Right hip pain History of Current Condition Pt is a 77 year old female presenting to skilled therapy five months s/p T12 laminectomy. Pt reports she is in severe, constant pain, although thinks it might be improving. Pt experiences burning iin her hip when walking more than a half block . Unable to right in a car further than a trip to [place]. Was previously experiencing some radicular pain, but that has gone away recently. Admits that bending causes pain that gets me right at the panty line. Has occasional severe discomfort in right calf, typically when trying to sleep. Has been having anxiety/depression about her recovery, was very hesitant with coming to PT, because she is worried about anyone touching her back. Treatment Goals Patient/Caregiver Goals I want to be able to walk good and to get through this pain, hopefully it will be gone someday. PT-OP-C Subjective Start: 10/10/23 17:54 Freq: Status: Active Protocol: Document 11/27/23 07:30 SP (Rec: 11/27/23 08:19 SP [id number]) OP-PT Subjective Patient Comments Patient Comments Pt reports just has little normal nerve like burning sensation anterior hips at early arrival this am but otherwise feel pretty good. PT-OP-K Range of Motion Start: 10/10/23 17:54 Freq: Status: Active Protocol: Document 11/10/23 11:15 DCW (Rec: 11/10/23 12:02 DCW [id number]) Lumbar Spine Range of Motion Lumbar Spine Active Degrees Testing Position Standing Flexion 65 Extension 35 Lateral Flexion Left 38 Lateral Flexion Right 38 Comments Lateral flexion measured incm from fingertips to floor PT-OP-L Special Tests Start: 10/10/23 17:54 Freq: Status: Active Protocol: Document 10/10/23 09:45 DCW (Rec: 10/10/23 18:08 DCW [id number]) Special Tests Lumbar Spine Special Tests Vertical Spine Loading Test Results Negative Compression Test Results Negative TATIANA Test Results Negative Straight Leg Raise Test Results Negative A-P Shearing Test Results Negative PT-OP-M Strength Start: 10/10/23 17:54 Freq: Status: Active Protocol: Document 10/10/23 09:45 DCW (Rec: 10/10/23 18:08 DCW [id number]) Hip Strength Hip Manual Muscle Testing Right Flexion (L2) 5 Normal Abduction 5 Normal Adduction 5 Normal External Rotation 4 Good Internal Rotation 5 Normal Left Flexion (L2) 5 Normal Abduction 5 Normal Adduction 5 Normal External Rotation 4 Good Internal Rotation 5 Normal PT-OP-Q Treatments Start: 10/10/23 17:54 Freq: Status: Active Protocol: Document 11/27/23 07:30 SP (Rec: 11/27/23 08:19 SP [id number]) Cardio Equipment Recumbent Elliptical (Biodex) Duration (Minutes) 6 Resistance 3 Seat Position see 6 Other BUE/BLEs, 30 RPMs- just muscle tiring Gym Equipment Shuttle Recovery Unilateral Squats Resistance 37# ( 1 [employer] band) Reps/Time x15 Bilateral Squats Details blocked 90 deg knees to decrease knee discomfort Resistance 62# (2 navy) Reps/Time x15 reps Shuttle Balance red Details WBOS, stride stance wt shift & balloon volley Comments wt shift f/b HTs CG-10%A cues for self corrections for stability Gait Training Gait Activity 8MWT Description gym [facility] including 2 sets of stairs flights Device Used slight rail finger glide if needed descending. Level of Assistance S Distance/Duration ? Treatment Focus assess painfree, endurance Comments cued TA, core on stairs for midline stability without rail support, 1 sway to R ascending but recovered using rail Neuro Re-Education Treatment Balance Activities step taps & step up/back down Details trialed in PT Equipment 4# leg wts, near rail but not needed Reps/Duration x20 taps, x10 lead each Comments cued soft step, TA for no LB recruitment, improved less back tension PT-OP-T Assessment and Plan Start: 10/10/23 17:54 Freq: Status: Active Protocol: Document 11/27/23 07:30 SP (Rec: 11/27/23 08:19 SP [id number]) Physical Therapy Assessment Goals Three Impairment Pt unable to sit in vehicle to drive farther than [place] 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 11/27/23: MET GOAL: reports just little discomfort 1 hr ride to [place] and back. LTG Duration 12/10/23 MET GOAL: 11/27/23 Two Impairment Pt unable to walk more than 1/ 2 block without increased right hip pain/burn Senior Living Goal (LTG) Pt to report ability to ambulate one mile around her neighborhood without increased hip pain in order to improve activity tolerance LTG Duration 12/10/23 One Impairment Pt does not have an appropriate home exercise program Short Term Goal (STG) Pt to be independent and compliant with an appropriate HEP STG Duration 11/11/23 Assessment Summary Assessment Pt reports pnfree during gait (unmeasured but timed 8 minutes) throughout hospital including 2 flights of stairs ([facility] bld[address] 28, Inpatient center building 27), and stated felt loosened up. Cued TA and midline trunk stability when noted over wt shift receiprocal stepping with UE support ascending. Requires slight finger/hand glide on rail for balance support. Physical Therapy Plan Frequency and Duration Frequency of Treatment 2x/Week Plan of Care Start Date 10/10/23 Plan of Care End Date 12/10/23 Therapeutic Interventions Therapeutic Interventions Gait Training,Home Exercise Program,Joint Mobilizations, Manual Therapy,Neuromuscular Re-education,Patient/Caregiver Education,Self-Care/Home Management,Soft Tissue Mobilization,Therapeutic Activities,Therapeutic Exercises Next Visit Focus/Plan Next Note Type Treatment Note Next Visit Plan Assess response to longer distance gait and flights of stair mgt last tx. Check if need update POC or ready DC. Obstacle course and uneven stepping for return to community trail walking endurance. Recheck HEP: Stretching LB and hip ER strengthening. Next tx incorporate STS, resisted side stepping. Assess distance gait for safety carryover home with , her personal goal. POC: hip STM, increasing activity tolerance
--- NOTE | 2023-11-29 15:17 | PT.OTN ---
Current Diagnoses Stiffness of left hip, not elsewhere classified (11/29/23) Spinal stenosis, thoracic region (11/29/23) Physical Therapy Treatment Note PT-OP-A Visit Information Start: 10/10/23 17:54 Freq: Status: Active Protocol: Document 11/29/23 14:30 DCW (Rec: 11/29/23 15:17 DCW [id number]) Out-Patient Physical Therapy Visit Information Visit Information Visit Type Treatment Note Visit Note attends with pt. 08/06 after PN Visit Start Time 14:30 Visit Stop Time 15:15 Visit Number 15 Number of FED[employer]IATION COMMISSIONER Visits 0 Evaluation Information Evaluation Date 10/10/23 PT-OP-B Current Condition Start: 10/10/23 17:54 Freq: Status: Active Protocol: Document 10/10/23 09:45 DCW (Rec: 10/11/23 16:21 DCW [id number]) Current Condition History of Current Condition Onset Date Five month history Current Complaints Right hip pain History of Current Condition Pt is a 77 year old female presenting to skilled therapy five months s/p T12 laminectomy. Pt reports she is in severe, constant pain, although thinks it might be improving. Pt experiences burning iin her hip when walking more than a half block . Unable to right in a car further than a trip to [place]. Was previously experiencing some radicular pain, but that has gone away recently. Admits that bending causes pain that gets me right at the panty line. Has occasional severe discomfort in right calf, typically when trying to sleep. Has been having anxiety/depression about her recovery, was very hesitant with coming to PT, because she is worried about anyone touching her back. Treatment Goals Patient/Caregiver Goals I want to be able to walk good and to get through this pain, hopefully it will be gone someday. PT-OP-C Subjective Start: 10/10/23 17:54 Freq: Status: Active Protocol: Document 11/29/23 14:30 DCW (Rec: 11/29/23 15:17 DCW [id number]) OP-PT Subjective Patient Comments Patient Comments Pt notes she is feeling good, I know the PT is helping my back, does note some increased pain in her cervical spine recently, noticing more popping and cracking. PT-OP-K Range of Motion Start: 10/10/23 17:54 Freq: Status: Active Protocol: Document 11/10/23 11:15 DCW (Rec: 11/10/23 12:02 DCW [id number]) Lumbar Spine Range of Motion Lumbar Spine Active Degrees Testing Position Standing Flexion 65 Extension 35 Lateral Flexion Left 38 Lateral Flexion Right 38 Comments Lateral flexion measured incm from fingertips to floor PT-OP-L Special Tests Start: 10/10/23 17:54 Freq: Status: Active Protocol: Document 10/10/23 09:45 DCW (Rec: 10/10/23 18:08 DCW [id number]) Special Tests Lumbar Spine Special Tests Vertical Spine Loading Test Results Negative Compression Test Results Negative TATIANA Test Results Negative Straight Leg Raise Test Results Negative A-P Shearing Test Results Negative PT-OP-M Strength Start: 10/10/23 17:54 Freq: Status: Active Protocol: Document 10/10/23 09:45 DCW (Rec: 10/10/23 18:08 DCW [id number]) Hip Strength Hip Manual Muscle Testing Right Flexion (L2) 5 Normal Abduction 5 Normal Adduction 5 Normal External Rotation 4 Good Internal Rotation 5 Normal Left Flexion (L2) 5 Normal Abduction 5 Normal Adduction 5 Normal External Rotation 4 Good Internal Rotation 5 Normal PT-OP-Q Treatments Start: 10/10/23 17:54 Freq: Status: Active Protocol: Document 11/29/23 14:30 DCW (Rec: 11/29/23 15:17 DCW [id number]) Gym Equipment Shuttle Balance red Details WBOS, stride stance wt shift & balloon volley Comments wt shift f/b HTs CG-10%A cues for self corrections for stability Therapeutic Exercises Sitting Exercises Upper Trap Sitting Exercise Name UT stretch Side bilateral Standing Exercises Extension Standing Exercise Name Shoulder Extension Side bilateral Resistance Green Rows Standing Exercise Name Rows Side bilateral Resistance Green step ups Standing Exercise Name Lateral step-ups Side bilateral Equipment Used 6 step, light contact rail Reps/Minutes x10 each LE leading Comments cued tall, TKE and glut drive into WB into RLE, rail support, slower ecc. Neuro Re-Education Treatment Balance Activities Tandem Details Tandem Stance Comments // bars SLS Details SLS PT-OP-T Assessment and Plan Start: 10/10/23 17:54 Freq: Status: Active Protocol: Document 11/29/23 14:30 DCW (Rec: 11/29/23 15:17 DCW [id number]) Physical Therapy Assessment Impairments Impairments Activity Tolerance,Functional Activities,Functional Mobility ,Gait,Pain,ROM,Strength,Tone Goals Three Impairment Pt unable to sit in vehicle to drive farther than [place] Set Rider Goal (LTG) Pt to demonstrate reduced hip pain with extended sitting by tolerating a [address] without increased hip pain. 11/27/23: MET GOAL: reports just little discomfort 1 hr ride to [place] and back. LTG Duration 12/10/23 MET GOAL: 11/27/23 Two Impairment Pt unable to walk more than 1/ 2 block without increased right hip pain/burn Set Rider Goal (LTG) Pt to report ability to ambulate one mile around her neighborhood without increased hip pain in order to improve activity tolerance LTG Duration 12/10/23 One Impairment Pt does not have an appropriate home exercise program Short Term Goal (STG) Pt to be independent and compliant with an appropriate HEP STG Duration 11/11/23 Assessment Summary Assessment Pt noting that she is doing well, nearly met all goals. Improved activity tolerance, able to sit in vehicle for travel with no increased pain. Will likely be ready to discharge following next two visits, ensure pt has good understanding of HEP. Physical Therapy Plan Frequency and Duration Frequency of Treatment 2x/Week Plan of Care Start Date 10/10/23 Plan of Care End Date 12/10/23 Therapeutic Interventions Therapeutic Interventions Gait Training,Home Exercise Program,Joint Mobilizations, Manual Therapy,Neuromuscular Re-education,Patient/Caregiver Education,Self-Care/Home Management,Soft Tissue Mobilization,Therapeutic Activities,Therapeutic Exercises Next Visit Focus/Plan Next Note Type Treatment Note Next Visit Plan Assess response to longer distance gait and flights of stair mgt last tx. Check if need update POC or ready DC. Obstacle course and uneven stepping for return to community trail walking endurance. Recheck HEP: Stretching LB and hip ER strengthening. Next tx incorporate STS, resisted side stepping. Assess distance gait for safety carryover home with , her personal goal. POC: hip STM, increasing activity tolerance
--- NOTE | 2023-12-05 09:45 | PT.OTN ---
Current Diagnoses Stiffness of left hip, not elsewhere classified (12/05/23) Spinal stenosis, thoracic region (12/05/23) Physical Therapy Treatment Note PT-OP-A Visit Information Start: 10/10/23 17:54 Freq: Status: Active Protocol: Document 12/05/23 09:03 SP (Rec: 12/05/23 09:51 SP [id number]) Out-Patient Physical Therapy Visit Information Visit Information Visit Type Treatment Note Visit Note attends with pt. 10 after PN Visit Start Time 09:03 Visit Stop Time 09:45 Visit Number 16 Number of CITY SANITARIAN Visits 1 Evaluation Information Evaluation Date 10/10/23 PT-OP-B Current Condition Start: 10/10/23 17:54 Freq: Status: Active Protocol: Document 10/10/23 09:45 DCW (Rec: 10/11/23 16:21 DCW [id number]) Current Condition History of Current Condition Onset Date Five month history Current Complaints Right hip pain History of Current Condition Pt is a 77 year old female presenting to skilled therapy five months s/p T12 laminectomy. Pt reports she is in severe, constant pain, although thinks it might be improving. Pt experiences burning iin her hip when walking more than a half block . Unable to right in a car further than a trip to [place]. Was previously experiencing some radicular pain, but that has gone away recently. Admits that bending causes pain that gets me right at the panty line. Has occasional severe discomfort in right calf, typically when trying to sleep. Has been having anxiety/depression about her recovery, was very hesitant with coming to PT, because she is worried about anyone touching her back. Treatment Goals Patient/Caregiver Goals I want to be able to walk good and to get through this pain, hopefully it will be gone someday. PT-OP-C Subjective Start: 10/10/23 17:54 Freq: Status: Active Protocol: Document 12/05/23 09:03 SP (Rec: 12/05/23 09:51 SP [id number]) OP-PT Subjective Patient Comments Patient Comments Pt reports arrives with 9/10 pain in R posterolateral hip and states probably bursitis. PT-OP-K Range of Motion Start: 10/10/23 17:54 Freq: Status: Active Protocol: Document 11/10/23 11:15 DCW (Rec: 11/10/23 12:02 DCW [id number]) Lumbar Spine Range of Motion Lumbar Spine Active Degrees Testing Position Standing Flexion 65 Extension 35 Lateral Flexion Left 38 Lateral Flexion Right 38 Comments Lateral flexion measured incm from fingertips to floor PT-OP-L Special Tests Start: 10/10/23 17:54 Freq: Status: Active Protocol: Document 10/10/23 09:45 DCW (Rec: 10/10/23 18:08 DCW [id number]) Special Tests Lumbar Spine Special Tests Vertical Spine Loading Test Results Negative Compression Test Results Negative TATIANA Test Results Negative Straight Leg Raise Test Results Negative A-P Shearing Test Results Negative PT-OP-M Strength Start: 10/10/23 17:54 Freq: Status: Active Protocol: Document 10/10/23 09:45 DCW (Rec: 10/10/23 18:08 DCW [id number]) Hip Strength Hip Manual Muscle Testing Right Flexion (L2) 5 Normal Abduction 5 Normal Adduction 5 Normal External Rotation 4 Good Internal Rotation 5 Normal Left Flexion (L2) 5 Normal Abduction 5 Normal Adduction 5 Normal External Rotation 4 Good Internal Rotation 5 Normal PT-OP-Q Treatments Start: 10/10/23 17:54 Freq: Status: Active Protocol: Document 12/05/23 09:03 SP (Rec: 12/05/23 09:51 SP [id number]) Gym Equipment Shuttle Balance red Details WBOS, stride stance wt shift Comments wt shift f/b HTs CG-10%A cues for self corrections wt shift for stability Therapeutic Exercises Supine Exercises DKTC Supine Exercise Name Stretch review Side bilateral Reps/Minutes 30 SH Comments good feedback stretch in LB and hips Hamstring Stretch Supine Exercise Name 1. Hamstring Stretch 2. HS stretch /c AP Side bilateral Equipment Used grasp behind thigh, Lower leg toward ceiling Reps/Minutes 1. 30 SH stretch 2. x10 APs Comments good gentle HS stretch reported Piriformis stretch Supine Exercise Name HEP reviewed Side bilateral Reps/Minutes 30 SH Comments Good gentle stretch no pain reange reported Sitting Exercises Graciela Cross Applesauce Sitting Exercise Name libyan style positioning- self trial Side bilateral Equipment Used hands grasp shins support position Reps/Minutes 30 x2 Comments slight elevation knees but feels better Standing Exercises Extension Standing Exercise Name Shoulder Extension Side bilateral Resistance Tb #3 [place] Reps/Minutes 2 x15 Comments feet side by side, Rows Standing Exercise Name Rows Side bilateral Resistance Tb #3 [place] Reps/Minutes 2 x15 reps Comments cued slight split stance for trunk stability Neuro Re-Education Treatment Balance Activities SLS Comments LLE 25 sec RLE 2, 3, 4sec Challenged tall engaged core/ cap complex over stance RLe PT-OP-T Assessment and Plan Start: 10/10/23 17:54 Freq: Status: Active Protocol: Document 12/05/23 09:03 SP (Rec: 12/05/23 09:51 SP [id number]) Physical Therapy Assessment Goals Three Impairment Pt unable to sit in vehicle to drive farther than [place] De[employer] Goal (LTG) Pt to demonstrate reduced hip pain with extended sitting by tolerating a [address] without increased hip pain. 11/27/23: MET GOAL: reports just little discomfort 1 hr ride to [place] and [facility]. LTG Duration 12/10/23 MET GOAL: 11/27/23 Two Impairment Pt unable to walk more than 1/ 2 block without increased right hip pain/burn Deicer [employer] Goal (LTG) Pt to report ability to ambulate one mile around her neighborhood without increased hip pain in order to improve activity tolerance LTG Duration 12/10/23 One Impairment Pt does not have an appropriate home exercise program Short Term Goal (STG) Pt to be independent and compliant with an appropriate HEP STG Duration 11/11/23 Assessment Summary Assessment Intiated stretching review beginning of tx with reports pain reduction 11/06 to 08/06 and was able to perform graciela cross apple sauce BLe positioning on floor. Cues for proper posture and form with adjustment in stride stance during resisted UE/core exercise. Improved SLS time on LLE 25 sec but decreased stability on RLE. Pt reported hip pain felt alot better 2 / 10 end tx and more mobilty. I feel alot better, but my balance still isn't as good as would like. Encouraged continue stretching home and active stregnthening HEP for carryover functional mobility with pain reduction results worked today. Physical Therapy Plan Frequency and Duration Frequency of Treatment 2x/Week Plan of Care Start Date 10/10/23 Plan of Care End Date 12/10/23 Therapeutic Interventions Therapeutic Interventions Gait Training,Home Exercise Program,Joint Mobilizations, Manual Therapy,Neuromuscular Re-education,Patient/Caregiver Education,Self-Care/Home Management,Soft Tissue Mobilization,Therapeutic Activities,Therapeutic Exercises Next Visit Focus/Plan Next Note Type PRogress/POC Note Next Visit Plan Assess response to stretching and discussion continue home. Nex tx ask if needs more time with balance or ready for continue on own. Future continue osmin surfaces for return to community trail walking endurance. Recheck HEP: Stretching LB and hip ER strengthening. Next tx incorporate STS, resisted side stepping. Assess distance gait for safety carryover home with , her personal goal. POC: hip STM, increasing activity tolerance
--- NOTE | 2023-12-07 15:14 | PT.OTN ---
Current Diagnoses Stiffness of left hip, not elsewhere classified (12/07/23) Spinal stenosis, thoracic region (12/07/23) Physical Therapy Treatment Note PT-OP-A Visit Information Start: 10/10/23 17:54 Freq: Status: Active Protocol: Document 12/07/23 14:30 DCW (Rec: 12/07/23 15:14 DCW [id number]) Out-Patient Physical Therapy Visit Information Visit Information Visit Type Progress Note Visit Start Time 14:30 Visit Stop Time 15:03 Visit Number 17 Number of ARRANGING FUNERAL DIRECTOR Visits 0 Evaluation Information Evaluation Date 10/10/23 PT-OP-B Current Condition Start: 10/10/23 17:54 Freq: Status: Active Protocol: Document 10/10/23 09:45 DCW (Rec: 10/11/23 16:21 DCW [id number]) Current Condition History of Current Condition Onset Date Five month history Current Complaints Right hip pain History of Current Condition Pt is a 77 year old female presenting to skilled therapy five months s/p T12 laminectomy. Pt reports she is in severe, constant pain, although thinks it might be improving. Pt experiences burning iin her hip when walking more than a half block . Unable to right in a car further than a trip to [place]. Was previously experiencing some radicular pain, but that has gone away recently. Admits that bending causes pain that gets me right at the panty line. Has occasional severe discomfort in right calf, typically when trying to sleep. Has been having anxiety/depression about her recovery, was very hesitant with coming to PT, because she is worried about anyone touching her back. Treatment Goals Patient/Caregiver Goals I want to be able to walk good and to get through this pain, hopefully it will be gone someday. PT-OP-C Subjective Start: 10/10/23 17:54 Freq: Status: Active Protocol: Document 12/07/23 14:30 DCW (Rec: 12/07/23 15:14 DCW [id number]) OP-PT Subjective Patient Comments Patient Comments Pt feeling much more comfortable with her home exercises, does note she is still fatiguing quicker than she would like. PT-OP-K Range of Motion Start: 10/10/23 17:54 Freq: Status: Active Protocol: Document 12/07/23 14:30 DCW (Rec: 12/07/23 14:44 DCW [id number]) Lumbar Spine Range of Motion Lumbar Spine Active Degrees Testing Position Standing Flexion 65 Extension 40 Lateral Flexion Left 31 Lateral Flexion Right 31 Comments Lateral flexion measured in cm from fingertips to floor PT-OP-L Special Tests Start: 10/10/23 17:54 Freq: Status: Active Protocol: Document 10/10/23 09:45 DCW (Rec: 10/10/23 18:08 DCW [id number]) Special Tests Lumbar Spine Special Tests Vertical Spine Loading Test Results Negative Compression Test Results Negative TATIANA Test Results Negative Straight Leg Raise Test Results Negative A-P Shearing Test Results Negative PT-OP-M Strength Start: 10/10/23 17:54 Freq: Status: Active Protocol: Document 10/10/23 09:45 DCW (Rec: 10/10/23 18:08 DCW [id number]) Hip Strength Hip Manual Muscle Testing Right Flexion (L2) 5 Normal Abduction 5 Normal Adduction 5 Normal External Rotation 4 Good Internal Rotation 5 Normal Left Flexion (L2) 5 Normal Abduction 5 Normal Adduction 5 Normal External Rotation 4 Good Internal Rotation 5 Normal PT-OP-Q Treatments Start: 10/10/23 17:54 Freq: Status: Active Protocol: Document 12/07/23 14:30 DCW (Rec: 12/07/23 15:14 DCW [id number]) Manual Therapy Treatment Soft Tissue Mobilization Lumbar Body Location Lumbar paraspinals Mobilization Type Strumming,Sustained Pressure Intensity/Depth Moderate Body Position Sidelying Comments gentle light STMs PT-OP-T Assessment and Plan Start: 10/10/23 17:54 Freq: Status: Active Protocol: Document 12/07/23 14:30 DCW (Rec: 12/07/23 15:14 DCW [id number]) Physical Therapy Assessment Impairments Impairments Activity Tolerance,Functional Activities,Functional Mobility ,Gait,Pain,ROM,Strength,Tone Goals Three Impairment Pt unable to sit in vehicle to drive farther than [place] Financial Service Representative Goal (LTG) Pt to demonstrate reduced hip pain with extended sitting by tolerating a [address] without increased hip pain. 11/27/23: MET GOAL: reports just little discomfort 1 hr ride to [facility]. LTG Duration 12/10/23 MET GOAL: 11/27/23 Two Impairment Pt unable to walk more than 1/ 2 block without increased right hip pain/burn Retirement Goal (LTG) Pt to report ability to ambulate one mile around her neighborhood without increased hip pain in order to improve activity tolerance LTG Duration 01/19/24 One Impairment Pt does not have an appropriate home exercise program Short Term Goal (STG) Pt to be independent and compliant with an appropriate HEP STG Duration 01/07/24 Assessment Summary Assessment Pt demonstrating very good overall improvement. Lumbar mobility nearing WNL, pt slowly returning to prior functional levels. Pt does still note feeling like her legs are weaker than they used to be, and she continues to fatigue quickly. Therapist, patient, and her discussed plan going forward, at this point, all agreeable with plan of reducing frequency to 1x/week for 5-6 weeks, with goal of increasing activity tolerance and adjusting HEP to increase focus on LE and core strengthening. Physical Therapy Plan Frequency and Duration Frequency of Treatment 1x/Week Plan of Care Start Date 12/07/23 Plan of Care End Date 01/19/24 Therapeutic Interventions Therapeutic Interventions Gait Training,Home Exercise Program,Joint Mobilizations, Manual Therapy,Neuromuscular Re-education,Patient/Caregiver Education,Self-Care/Home Management,Soft Tissue Mobilization,Therapeutic Activities,Therapeutic Exercises Next Visit Focus/Plan Next Note Type Treatment Note Next Visit Plan Next tx ask if needs more time with balance or ready for continue on own. Future continue uneven surfaces for return to community trail walking endurance. Recheck HEP: Stretching LB and hip ER strengthening. Next tx incorporate STS, resisted side stepping. Assess distance gait for safety carryover home with , her personal goal. POC: hip STM, increasing activity tolerance
--- NOTE | 2023-12-13 17:29 | PT.OTN ---
Current Diagnoses Stiffness of left hip, not elsewhere classified (12/13/23) Spinal stenosis, thoracic region (12/13/23) Physical Therapy Treatment Note PT-OP-A Visit Information Start: 10/10/23 17:54 Freq: Status: Active Protocol: Document 12/13/23 16:45 DCW (Rec: 12/13/23 17:29 DCW [id number]) Out-Patient Physical Therapy Visit Information Visit Information Visit Type Treatment Note Visit Start Time 16:45 Visit Stop Time 17:30 Visit Number 18 PT-OP-B Current Condition Start: 10/10/23 17:54 Freq: Status: Active Protocol: Document 10/10/23 09:45 DCW (Rec: 10/11/23 16:21 DCW [id number]) Current Condition History of Current Condition Onset Date Five month history Current Complaints Right hip pain History of Current Condition Pt is a 77 year old female presenting to skilled therapy five months s/p T12 laminectomy. Pt reports she is in severe, constant pain, although thinks it might be improving. Pt experiences burning iin her hip when walking more than a half block . Unable to right in a car further than a trip to [place]. Was previously experiencing some radicular pain, but that has gone away recently. Admits that bending causes pain that gets me right at the panty line. Has occasional severe discomfort in right calf, typically when trying to sleep. Has been having anxiety/depression about her recovery, was very hesitant with coming to PT, because she is worried about anyone touching her back. Treatment Goals Patient/Caregiver Goals I want to be able to walk good and to get through this pain, hopefully it will be gone someday. PT-OP-C Subjective Start: 10/10/23 17:54 Freq: Status: Active Protocol: Document 12/13/23 16:45 DCW (Rec: 12/13/23 17:29 DCW [id number]) OP-PT Subjective Patient Comments Patient Comments We bought some ankle weights, but I didn't want to use them until I talked to you. PT-OP-K Range of Motion Start: 10/10/23 17:54 Freq: Status: Active Protocol: Document 12/07/23 14:30 DCW (Rec: 12/07/23 14:44 DCW [id number]) Lumbar Spine Range of Motion Lumbar Spine Active Degrees Testing Position Standing Flexion 65 Extension 40 Lateral Flexion Left 31 Lateral Flexion Right 31 Comments Lateral flexion measured in cm from fingertips to floor PT-OP-L Special Tests Start: 10/10/23 17:54 Freq: Status: Active Protocol: Document 10/10/23 09:45 DCW (Rec: 10/10/23 18:08 DCW [id number]) Special Tests Lumbar Spine Special Tests Vertical Spine Loading Test Results Negative Compression Test Results Negative TATIANA Test Results Negative Straight Leg Raise Test Results Negative A-P Shearing Test Results Negative PT-OP-M Strength Start: 10/10/23 17:54 Freq: Status: Active Protocol: Document 10/10/23 09:45 DCW (Rec: 10/10/23 18:08 DCW [id number]) Hip Strength Hip Manual Muscle Testing Right Flexion (L2) 5 Normal Abduction 5 Normal Adduction 5 Normal External Rotation 4 Good Internal Rotation 5 Normal Left Flexion (L2) 5 Normal Abduction 5 Normal Adduction 5 Normal External Rotation 4 Good Internal Rotation 5 Normal PT-OP-Q Treatments Start: 10/10/23 17:54 Freq: Status: Active Protocol: Document 12/13/23 16:45 DCW (Rec: 12/13/23 17:29 DCW [id number]) Gym Equipment Shuttle Recovery Unilateral Squats Resistance 37# Reps/Time x15 Bilateral Squats Resistance 75# Reps/Time x15 Therapeutic Exercises Supine Exercises SAQ Supine Exercise Name SAQ Side bilateral Resistance 2# SLR Supine Exercise Name SLR Side bilateral Resistance 2# Sidelying Exercises Hip Abduction Sidelying Exercise Name Hip Abduction Side bilateral Resistance 2# Sitting Exercises Marching Sitting Exercise Name Marching Side bilateral Resistance 2# LAQ Sitting Exercise Name LAQ Side bilateral Resistance 2# Standing Exercises Hamstring Curls Standing Exercise Name Hamstring Curls Side bilateral Resistance 2# Pallof Press Standing Exercise Name Pallof Press Side bilateral Resistance Green Reps/Minutes x15 PT-OP-T Assessment and Plan Start: 10/10/23 17:54 Freq: Status: Active Protocol: Document 12/13/23 16:45 DCW (Rec: 12/13/23 17:29 DCW [id number]) Physical Therapy Assessment Impairments Impairments Activity Tolerance,Functional Activities,Functional Mobility ,Gait,Pain,ROM,Strength,Tone Goals Three Impairment Pt unable to sit in vehicle to drive farther than [place] Wire 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 11/27/23: MET GOAL: reports just little discomfort 1 hr ride to [place] and back. 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 Did well with leg and core strengthening, adjust HEP as needed going forward. Physical Therapy Plan Frequency and Duration Frequency of Treatment 1x/Week Plan of Care Start Date 12/07/23 Plan of Care End Date 01/19/24 Therapeutic Interventions Therapeutic Interventions Gait Training,Home Exercise Program,Joint Mobilizations, Manual Therapy,Neuromuscular Re-education,Patient/Caregiver Education,Self-Care/Home Management,Soft Tissue Mobilization,Therapeutic Activities,Therapeutic Exercises Next Visit Focus/Plan Next Note Type Treatment Note Next Visit Plan Next tx ask if needs more time with balance or ready for continue on own. Future continue uneven surfaces for return to community trail walking endurance. Recheck HEP: Stretching LB and hip ER strengthening. Next tx incorporate STS, resisted side stepping. Assess distance gait for safety carryover home with , her personal goal. POC: hip STM, increasing activity tolerance
--- NOTE | 2023-12-20 10:27 | PT.OTN ---
Current Diagnoses Stiffness of left hip, not elsewhere classified (12/20/23) Spinal stenosis, thoracic region (12/20/23) Physical Therapy Treatment Note PT-OP-A Visit Information Start: 10/10/23 17:54 Freq: Status: Active Protocol: Document 12/20/23 09:47 SP (Rec: 12/20/23 10:37 SP [id number]) Out-Patient Physical Therapy Visit Information Visit Information Visit Type Treatment Note Visit Start Time 09:47 Visit Stop Time 10:27 Visit Number 19 Number of PRESIDENT AND CHIEF EXECUTIVE OFFICER Visits 1 Evaluation Information Evaluation Date 10/10/23 PT-OP-B Current Condition Start: 10/10/23 17:54 Freq: Status: Active Protocol: Document 10/10/23 09:45 DCW (Rec: 10/11/23 16:21 DCW [id number]) Current Condition History of Current Condition Onset Date Five month history Current Complaints Right hip pain History of Current Condition Pt is a 77 year old female presenting to skilled therapy five months s/p T12 laminectomy. Pt reports she is in severe, constant pain, although thinks it might be improving. Pt experiences burning iin her hip when walking more than a half block . Unable to right in a car further than a trip to [place]. Was previously experiencing some radicular pain, but that has gone away recently. Admits that bending causes pain that gets me right at the panty line. Has occasional severe discomfort in right calf, typically when trying to sleep. Has been having anxiety/depression about her recovery, was very hesitant with coming to PT, because she is worried about anyone touching her back. Treatment Goals Patient/Caregiver Goals I want to be able to walk good and to get through this pain, hopefully it will be gone someday. PT-OP-C Subjective Start: 10/10/23 17:54 Freq: Status: Active Protocol: Document 12/20/23 09:47 SP (Rec: 12/20/23 10:37 SP [id number]) OP-PT Subjective Patient Comments Patient Comments Pt reports felt good after lasttx. She reports stretching DKTC at home feels good but the other stretches are hurting her R hip afterwards now. PT-OP-K Range of Motion Start: 10/10/23 17:54 Freq: Status: Active Protocol: Document 12/07/23 14:30 DCW (Rec: 12/07/23 14:44 DCW [id number]) Lumbar Spine Range of Motion Lumbar Spine Active Degrees Testing Position Standing Flexion 65 Extension 40 Lateral Flexion Left 31 Lateral Flexion Right 31 Comments Lateral flexion measured in cm from fingertips to floor PT-OP-L Special Tests Start: 10/10/23 17:54 Freq: Status: Active Protocol: Document 10/10/23 09:45 DCW (Rec: 10/10/23 18:08 DCW [id number]) Special Tests Lumbar Spine Special Tests Vertical Spine Loading Test Results Negative Compression Test Results Negative TATIANA Test Results Negative Straight Leg Raise Test Results Negative A-P Shearing Test Results Negative PT-OP-M Strength Start: 10/10/23 17:54 Freq: Status: Active Protocol: Document 10/10/23 09:45 DCW (Rec: 10/10/23 18:08 DCW [id number]) Hip Strength Hip Manual Muscle Testing Right Flexion (L2) 5 Normal Abduction 5 Normal Adduction 5 Normal External Rotation 4 Good Internal Rotation 5 Normal Left Flexion (L2) 5 Normal Abduction 5 Normal Adduction 5 Normal External Rotation 4 Good Internal Rotation 5 Normal PT-OP-Q Treatments Start: 10/10/23 17:54 Freq: Status: Active Protocol: Document 12/20/23 09:47 SP (Rec: 12/20/23 10:37 SP [id number]) Gym Equipment Shuttle Recovery Unilateral Squats Resistance 37# 1 navy band Reps/Time x15 Bilateral Squats Details knee 90deg myles range Resistance 75# 3 navy bands Reps/Time x15 Therapeutic Exercises Supine Exercises SAQ Supine Exercise Name SAQ Side bilateral Resistance 2# leg wt Equipment Used foam roller under knee (large coffee can home) Reps/Minutes x15 Comments cued SLR Supine Exercise Name SLR Side bilateral Resistance 2# leg wt Reps/Minutes x15 Comments cued not higher than opp knee Sidelying Exercises Hip Abduction Sidelying Exercise Name Hip Abduction Side bilateral Resistance 2# leg wt Equipment Used cued stacked alignment on side lean fwd into top hand on table Reps/Minutes x15 Comments cued opp leg bent- reports tiring but no pain Sitting Exercises Marching Sitting Exercise Name Marching Side bilateral Resistance 2# leg wt Reps/Minutes x15 LAQ Sitting Exercise Name LAQ Side bilateral Resistance 2# leg wt Reps/Minutes x15 Standing Exercises Hamstring Curls Standing Exercise Name Hamstring Curls Side bilateral Resistance 2# leg wt Equipment Used rail support Reps/Minutes x15 Comments cued head up for posture Pallof Press Standing Exercise Name Pallof Press Side bilateral Resistance Green TB Reps/Minutes x15 Comments cued no [place] recruitment Self-Care/Home Management Treatment Education Patient Education Home Exercise Program Caregiver Education Discussed with pt and Desire for future activity at , provided flyer can call get on waiting list. PT-OP-T Assessment and Plan Start: 10/10/23 17:54 Freq: Status: Active Protocol: Document 12/20/23 09:47 SP (Rec: 12/20/23 10:37 SP [id number]) Physical Therapy Assessment Goals Three Impairment Pt unable to sit in vehicle to drive farther than [place] [employer] Goal (LTG) Pt to demonstrate reduced hip pain with extended sitting by tolerating a [address] without increased hip pain. 11/27/23: MET GOAL: reports just little discomfort 1 hr ride to [place] and [facility]. 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 Good cues from in attendance provides at home as well. Pt reports no pain and I feel really good like had a good work out with no pain end tx. PRESIDENT AND CHIEF EXECUTIVE OFFICER provided HO for [place] if her and wish to attend some time in future for active mobillity when done with PT. Physical Therapy Plan Frequency and Duration Frequency of Treatment 1x/Week Plan of Care Start Date 12/07/23 Plan of Care End Date 01/19/24 Therapeutic Interventions Therapeutic Interventions Gait Training,Home Exercise Program,Joint Mobilizations, Manual Therapy,Neuromuscular Re-education,Patient/Caregiver Education,Self-Care/Home Management,Soft Tissue Mobilization,Therapeutic Activities,Therapeutic Exercises Next Visit Focus/Plan Next Note Type Treatment Note Next Visit Plan KX Modifier next tx. Recheck resisted HEP and form. 1x/wk. Future continue uneven surfaces for return to community trail walking endurance. Recheck HEP: Stretching LB and hip ER strengthening. Next tx incorporate STS, resisted side stepping. Assess distance gait for safety carryover home with , her personal goal. POC: hip STM, increasing activity tolerance
--- NOTE | 2023-12-27 09:00 | PT.OTN ---
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 Pt reports she is in severe, constant pain, although thinks it might be improving. Pt experiences burning iin her hip when walking more than a half block . Unable to right in a car further than a trip to [place]. Was previously experiencing some radicular pain, but that has gone away recently. Admits that bending causes pain that gets me right at the panty line. Has occasional severe discomfort in right calf, typically when trying to sleep. Has been having anxiety/depression about her recovery, was very hesitant with coming to PT, because she is worried about anyone touching her back. Treatment Goals Patient/Caregiver Goals I want to be able to walk good and to get through this pain, hopefully it will be gone someday. PT-OP-C Subjective Start: 10/10/23 17:54 Freq: Status: Active Protocol: Document 12/27/23 08:19 SP (Rec: 12/27/23 09:04 SP [id number]) OP-PT Subjective Patient Comments Patient Comments Pt reports she felt great after last tx no pain. Then as always later in evening pain starts up in her R hip about 4 pm so she stated just gets up and moves around. Also took about 1/2 Oxycodone to help with pain control. She arrives with 9/10 pain reported in R hip. She has h PT-OP-K Range of Motion Start: 10/10/23 17:54 Freq: Status: Active Protocol: Document 12/07/23 14:30 DCW (Rec: 12/07/23 14:44 DCW [id number]) Lumbar Spine Range of Motion Lumbar Spine Active Degrees Testing Position Standing Flexion 65 Extension 40 Lateral Flexion Left 31 Lateral Flexion Right 31 Comments Lateral flexion measured in cm from fingertips to floor PT-OP-L Special Tests Start: 10/10/23 17:54 Freq: Status: Active Protocol: Document 10/10/23 09:45 DCW (Rec: 10/10/23 18:08 DCW [id number]) Special Tests Lumbar Spine Special Tests Vertical Spine Loading Test Results Negative Compression Test Results Negative TATIANA Test Results Negative Straight Leg Raise Test Results Negative A-P Shearing Test Results Negative PT-OP-M Strength Start: 10/10/23 17:54 Freq: Status: Active Protocol: Document 10/10/23 09:45 DCW (Rec: 10/10/23 18:08 DCW [id number]) Hip Strength Hip Manual Muscle Testing Right Flexion (L2) 5 Normal Abduction 5 Normal Adduction 5 Normal External Rotation 4 Good Internal Rotation 5 Normal Left Flexion (L2) 5 Normal Abduction 5 Normal Adduction 5 Normal External Rotation 4 Good Internal Rotation 5 Normal PT-OP-Q Treatments Start: 10/10/23 17:54 Freq: Status: Active Protocol: Document 12/27/23 08:19 SP (Rec: 12/27/23 09:04 SP [id number]) Cardio Equipment Bicycle (Upright) Duration (Minutes) 4 Resistance 7>6 Seat Position 4 Other cued upright posture, neutral pelvis and TA Gym Equipment Shuttle Recovery Bilateral Squats Details knee 90deg myles range Resistance 75# 3 navy bands Reps/Time x15 Therapeutic Exercises Supine Exercises SAQ Supine Exercise Name SAQ Side bilateral Resistance 2# leg wt Equipment Used foam roller under knee (large coffee can home) Reps/Minutes x15 Comments cued TA, good form pnfree DKTC Supine Exercise Name Stretch review Side bilateral Reps/Minutes 30 SH Comments good feedback stretch in LB and hips Standing Exercises Hamstring Curls Standing Exercise Name Hamstring Curls Side bilateral Resistance 2# leg wt Equipment Used rail support Reps/Minutes x15 Comments cued head up for posture Manual Therapy Treatment Consent Patient gave verbal consent for manual Yes treatment Soft Tissue Mobilization Piriformis Body Location R HS, Piriformis, ITB/TFL Mobilization Type Strumming,Sustained Pressure, Trigger Point Release Intensity/Depth Moderate Body Position Hooklying Comments gentle light STMs, good pnfree R hip Joint Mobilizations R hip Joint anteriomedial /c strap Comments MWM with hip ER- good pnfree R hip Neuro Re-Education Treatment Balance Activities hurdles Details fwd Surface CG- 5%A Equipment hurdles x6, foam, pods Comments CG-5%A cued posture- wt shift into advanced LE, slower pacing, balance stance LE before take step.. Improved psotural corrections for stabiltiy with reps Self-Care/Home Management Treatment Education Patient Education Joint Protection,Pain Management,Posture Other Education Discussed with pt and use of pillows between knees in sidelying and under thighs supine for pelvic/back and hip neutral support with good response supported during manual and ex today. Discussed if having pain with any exercise stop and only complete reps mucsle tiring work and not pain, verbalized better understanding. PT-OP-T Assessment and Plan Start: 10/10/23 17:54 Freq: Status: Active Protocol: Document 12/27/23 08:19 SP (Rec: 12/27/23 09:04 SP [id number]) Physical Therapy Assessment Goals Three Impairment Pt unable to sit in vehicle to drive farther than [place] [facility] Goal (LTG) Pt to demonstrate reduced hip pain with extended sitting by tolerating a [address] without increased hip pain. 11/27/23: MET GOAL: reports just little discomfort 1 hr ride to [facility]. 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 Reported little R hip and low back irritation trial upright bike, slight improvement with cues for elongated posture, neutral pelvis and TA facilitation. She demonstrates good form with resisted ther ex today. She responded well to manual therapy end tx for R hip pain 9/10 pain to 0/10 pain before left. Discussed use pillows between k nees when in sidelying and under legs for hip and back alignment support . Cues for posture, rhomboid and TA engagement and slower pacing, soft stepping wt shift into adanced LE improved stability. Physical Therapy Plan Frequency and Duration Frequency of Treatment 1x/Week Plan of Care Start Date 12/07/23 Plan of Care End Date 01/19/24 Therapeutic Interventions Therapeutic Interventions Gait Training,Home Exercise Program,Joint Mobilizations, Manual Therapy,Neuromuscular Re-education,Patient/Caregiver Education,Self-Care/Home Management,Soft Tissue Mobilization,Therapeutic Activities,Therapeutic Exercises Next Visit Focus/Plan Next Note Type Treatment Note Next Visit Plan KX Modifier. Recheck resisted HEP and form. 1x/wk. Continue uneven surfaces for return to community trail walking endurance. Recheck HEP: Stretching LB and hip ER strengthening. Future tx incorporate STS, resisted side stepping. Continue distance gait for progression with walks with POC: hip STM, increasing activity tolerance
--- NOTE | 2024-01-02 08:15 | PT.OTN ---
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 Pt reports she is in severe, constant pain, although thinks it might be improving. Pt experiences burning iin her hip when walking more than a half block . Unable to right in a car further than a trip to [place]. Was previously experiencing some radicular pain, but that has gone away recently. Admits that bending causes pain that gets me right at the panty line. Has occasional severe discomfort in right calf, typically when trying to sleep. Has been having anxiety/depression about her recovery, was very hesitant with coming to PT, because she is worried about anyone touching her back. Treatment Goals Patient/Caregiver Goals I want to be able to walk good and to get through this pain, hopefully it will be gone someday. PT-OP-C Subjective Start: 10/10/23 17:54 Freq: Status: Active Protocol: Document 01/02/24 07:39 SP (Rec: 01/02/24 08:17 SP [id number]) OP-PT Subjective Patient Comments Patient Comments Pt reports doing well with exercises, no pain. She states still has has the constant burning pain. She saw Dr Fenton and has ordered an MRI for her LS to see why still having burning across pelvis and glut area. She stated is pleased with her exercises because feels is getting stronger. PT-OP-K Range of Motion Start: 10/10/23 17:54 Freq: Status: Active Protocol: Document 12/07/23 14:30 DCW (Rec: 12/07/23 14:44 DCW [id number]) Lumbar Spine Range of Motion Lumbar Spine Active Degrees Testing Position Standing Flexion 65 Extension 40 Lateral Flexion Left 31 Lateral Flexion Right 31 Comments Lateral flexion measured in cm from fingertips to floor PT-OP-L Special Tests Start: 10/10/23 17:54 Freq: Status: Active Protocol: Document 10/10/23 09:45 DCW (Rec: 10/10/23 18:08 DCW [id number]) Special Tests Lumbar Spine Special Tests Vertical Spine Loading Test Results Negative Compression Test Results Negative TATIANA Test Results Negative Straight Leg Raise Test Results Negative A-P Shearing Test Results Negative PT-OP-M Strength Start: 10/10/23 17:54 Freq: Status: Active Protocol: Document 10/10/23 09:45 DCW (Rec: 10/10/23 18:08 DCW [id number]) Hip Strength Hip Manual Muscle Testing Right Flexion (L2) 5 Normal Abduction 5 Normal Adduction 5 Normal External Rotation 4 Good Internal Rotation 5 Normal Left Flexion (L2) 5 Normal Abduction 5 Normal Adduction 5 Normal External Rotation 4 Good Internal Rotation 5 Normal PT-OP-Q Treatments Start: 10/10/23 17:54 Freq: Status: Active Protocol: Document 01/02/24 07:39 SP (Rec: 01/02/24 08:17 SP [id number]) Gym Equipment Shuttle Recovery Bilateral Squats Details knee 90deg myles range Resistance 75# 3 navy bands Reps/Time 2x15 Therapeutic Exercises Supine Exercises pelvic realignment ex Supine Exercise Name 1. isometric adduction 2. pelvic lift single leg 3. hip ext isometric 90/9 Side bilateral Reps/Minutes 3 SH x5 reps Comments cued gentle activation SAQ Supine Exercise Name SAQ Side bilateral Resistance 2#>4# leg wt Equipment Used foam roller under knee (large coffee can home) Reps/Minutes 5 SH x15 Comments cued TA, good form pnfree core Supine Exercise Name DL table top, alternating foot taps to table Side bilateral Resistance AROM Reps/Minutes x10 Comments no pain inLB, tiring muscles in BLEs reported- review next- add to HEP next DKTC Supine Exercise Name Stretch review Side bilateral Reps/Minutes 30 SH, hold BLE flex ext knees Comments good feedback stretch in LB and hips Hamstring Stretch Supine Exercise Name HS stretch /c AP Side bilateral Equipment Used grasp behind thigh, Lower leg toward ceiling Reps/Minutes x10 APs Comments good gentle HS stretch reported, no burning Piriformis stretch Supine Exercise Name HEP reviewed Side bilateral Reps/Minutes 30 SH Comments Good gentle stretch no pain range reported Manual Therapy Treatment Consent Patient gave verbal consent for manual Yes treatment Soft Tissue Mobilization Piriformis Body Location R prox HS, Piriformis, ITB/TFL Mobilization Type Strumming,Sustained Pressure, Trigger Point Release Intensity/Depth Moderate Body Position Hooklying Comments gentle light STMs, good pnfree R hip CHIEF SAFETY OFFICER and instruction of for home carryover Lumbar Body Location R Lumbar QL and Paraspinal Mobilization Type Strumming,Sustained Pressure Intensity/Depth Moderate Body Position Sidelying Comments gentle light STMs CHIEF SAFETY OFFICER and instruction of for home carryover PT-OP-T Assessment and Plan Start: 10/10/23 17:54 Freq: Status: Active Protocol: Document 01/02/24 07:39 SP (Rec: 01/02/24 08:17 SP [id number]) Physical Therapy Assessment Goals Three Impairment Pt unable to sit in vehicle to drive farther than [place] 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 11/27/23: MET GOAL: reports just little discomfort 1 hr ride to [facility]. 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 Instruction to with feedback from pt on pressure response and direction massage for carryover home relief if needed. Discussed continue use of modalities: MHP, CP of which she does. Physical Therapy Plan Frequency and Duration Frequency of Treatment 1x/Week Plan of Care Start Date 12/07/23 Plan of Care End Date 01/19/24 Therapeutic Interventions Therapeutic Interventions Gait Training,Home Exercise Program,Joint Mobilizations, Manual Therapy,Neuromuscular Re-education,Patient/Caregiver Education,Self-Care/Home Management,Soft Tissue Mobilization,Therapeutic Activities,Therapeutic Exercises Next Visit Focus/Plan Next Note Type Treatment Note Next Visit Plan KX Modifier. Recheck resisted HEP and form. 1x/wk. Continue uneven surfaces for return to community trail walking endurance. Recheck HEP: Stretching LB and hip ER strengthening. Future tx incorporate STS, resisted side stepping. Continue distance gait for progression with walks with POC: hip STM, increasing activity tolerance
--- NOTE | 2024-01-05 12:12 | PT-OP ANOTE ---
Pt arrived early this am thinking her appt was at 730. Noted she confirmed today's appt at 1130 via [facility] on 01/01. Pt stated unable to come back for today's appt at 1130 due to other committment, cancelled appt <24 hrs.
--- NOTE | 2024-01-10 11:13 | PT.OTN ---
Current Diagnoses Stiffness of left hip, not elsewhere classified (01/10/24) Spinal stenosis, thoracic region (01/10/24) Physical Therapy Treatment Note PT-OP-A Visit Information Start: 10/10/23 17:54 Freq: Status: Active Protocol: Document 01/10/24 10:45 DCW (Rec: 01/10/24 11:13 DCW [id number]) Out-Patient Physical Therapy Visit Information Visit Information Visit Type Discharge Summary Visit Start Time 10:45 Visit Stop Time 11:05 Visit Number 22 Number of INSTITUTIONAL AIDE Visits 0 Evaluation Information Evaluation Date 10/10/23 PT-OP-B Current Condition Start: 10/10/23 17:54 Freq: Status: Active Protocol: Document 10/10/23 09:45 DCW (Rec: 10/11/23 16:21 DCW [id number]) Current Condition History of Current Condition Onset Date Five month history Current Complaints Right hip pain History of Current Condition Pt is a 77 year old female presenting to skilled therapy five months s/p T12 laminectomy. Pt reports she is in severe, constant pain, although thinks it might be improving. Pt experiences burning iin her hip when walking more than a half block . Unable to right in a car further than a trip to [place]. Was previously experiencing some radicular pain, but that has gone away recently. Admits that bending causes pain that gets me right at the panty line. Has occasional severe discomfort in right calf, typically when trying to sleep. Has been having anxiety/depression about her recovery, was very hesitant with coming to PT, because she is worried about anyone touching her back. Treatment Goals Patient/Caregiver Goals I want to be able to walk good and to get through this pain, hopefully it will be gone someday. PT-OP-C Subjective Start: 10/10/23 17:54 Freq: Status: Active Protocol: Document 01/10/24 10:45 DCW (Rec: 01/10/24 11:13 DCW [id number]) OP-PT Subjective Patient Comments Patient Comments Pt reports she had an increase in medication, which seems katie helping. Has a follow-up with her PCP to review recent MRI/ Pt reports she is planning on requesting a Cortisone shot. PT-OP-K Range of Motion Start: 10/10/23 17:54 Freq: Status: Active Protocol: Document 01/10/24 10:45 DCW (Rec: 01/10/24 11:08 DCW [id number]) Lumbar Spine Range of Motion Lumbar Spine Active Degrees Testing Position Standing Flexion 65 Extension 40 Lateral Flexion Left 31 Lateral Flexion Right 31 Comments Lateral flexion measured in cm from fingertips to floor PT-OP-L Special Tests Start: 10/10/23 17:54 Freq: Status: Active Protocol: Document 01/10/24 10:45 DCW (Rec: 01/10/24 11:08 DCW [id number]) Special Tests Lumbar Spine Special Tests Vertical Spine Loading Test Results Negative Compression Test Results Negative TATIANA Test Results Negative Straight Leg Raise Test Results Negative A-P Shearing Test Results Negative PT-OP-M Strength Start: 10/10/23 17:54 Freq: Status: Active Protocol: Document 01/10/24 10:45 DCW (Rec: 01/10/24 11:08 DCW [id number]) Hip Strength Hip Manual Muscle Testing Right Flexion (L2) 5 Normal Abduction 5 Normal Adduction 5 Normal External Rotation 5 Normal Internal Rotation 5 Normal Left Flexion (L2) 5 Normal Abduction 5 Normal Adduction 5 Normal External Rotation 4+ Good+ Internal Rotation 5 Normal PT-OP-Q Treatments Start: 10/10/23 17:54 Freq: Status: Active Protocol: Document 01/02/24 07:39 SP (Rec: 01/02/24 08:17 SP [id number]) Gym Equipment Shuttle Recovery Bilateral Squats Details knee 90deg myles range Resistance 75# 3 navy bands Reps/Time 2x15 Therapeutic Exercises Supine Exercises pelvic realignment ex Supine Exercise Name 1. isometric adduction 2. pelvic lift single leg 3. hip ext isometric 90/9 Side bilateral Reps/Minutes 3 SH x5 reps Comments cued gentle activation SAQ Supine Exercise Name SAQ Side bilateral Resistance 2#>4# leg wt Equipment Used foam roller under knee (large coffee can home) Reps/Minutes 5 SH x15 Comments cued TA, good form pnfree core Supine Exercise Name DL table top, alternating foot taps to table Side bilateral Resistance AROM Reps/Minutes x10 Comments no pain inLB, tiring muscles in BLEs reported- review next- add to HEP next DKTC Supine Exercise Name Stretch review Side bilateral Reps/Minutes 30 SH, hold BLE flex ext knees Comments good feedback stretch in LB and hips Hamstring Stretch Supine Exercise Name HS stretch /c AP Side bilateral Equipment Used grasp behind thigh, Lower leg toward ceiling Reps/Minutes x10 APs Comments good gentle HS stretch reported, no burning Piriformis stretch Supine Exercise Name HEP reviewed Side bilateral Reps/Minutes 30 SH Comments Good gentle stretch no pain range reported Manual Therapy Treatment Consent Patient gave verbal consent for manual Yes treatment Soft Tissue Mobilization Piriformis Body Location R prox HS, Piriformis, ITB/TFL Mobilization Type Strumming,Sustained Pressure, Trigger Point Release Intensity/Depth Moderate Body Position Hooklying Comments gentle light STMs, good pnfree R hip INSTITUTIONAL AIDE and instruction of for home carryover Lumbar Body Location R Lumbar QL and Paraspinal Mobilization Type Strumming,Sustained Pressure Intensity/Depth Moderate Body Position Sidelying Comments gentle light STMs INSTITUTIONAL AIDE and instruction of for home carryover PT-OP-T Assessment and Plan Start: 10/10/23 17:54 Freq: Status: Active Protocol: Document 01/10/24 10:45 DCW (Rec: 01/10/24 11:13 DCW [id number]) Physical Therapy Assessment Impairments Impairments Activity Tolerance,Functional Activities,Functional Mobility ,Gait,Pain,ROM,Strength,Tone Goals Three Impairment Pt unable to sit in vehicle to drive farther than [place] [facility] Goal (LTG) Pt to demonstrate reduced hip pain with extended sitting by tolerating a [address] without increased hip pain. 11/27/23: MET GOAL: reports just little discomfort 1 hr ride to [place] and [facility]. LTG Duration 12/10/23 MET GOAL: 11/27/23 Two Impairment Pt unable to walk more than 1/ 2 block without increased right hip pain/burn [employer] Goal (LTG) Pt to report ability to ambulate one mile around her neighborhood without increased hip pain in order to improve activity tolerance LTG Duration 01/19/24 One Impairment Pt does not have an appropriate home exercise program Short Term Goal (STG) Pt to be independent and compliant with an appropriate HEP STG Duration 01/07/24 Assessment Summary Assessment Testing unremarkable today, pt showing very good overall improvement since initial evaluation. Pt knowledgeable and compliant with HEP. Feels very happy with current level of function. Patient and therapist in agreement with discharge from skilled therapy at this time. Physical Therapy Plan Frequency and Duration Frequency of Treatment 1x/Week Plan of Care Start Date 12/07/23 Plan of Care End Date 01/19/24 Therapeutic Interventions Therapeutic Interventions Gait Training,Home Exercise Program,Joint Mobilizations, Manual Therapy,Neuromuscular Re-education,Patient/Caregiver Education,Self-Care/Home Management,Soft Tissue Mobilization,Therapeutic Activities,Therapeutic Exercises Discharge Physical Therapy Discharge Comments D/c to independent HEP Next Visit Focus/Plan Next Note Type Discharge Summary
--- NOTE | 2024-01-10 11:13 | PT.OPDS ---
Current Diagnoses Stiffness of left hip, not elsewhere classified (01/10/24) Spinal stenosis, thoracic region (01/10/24) Visit Care Team Role Provider Type Ford Bello MD Primary Care Provider Physician Specialty: Family Practice Address: [address] [place] [address], [place], [address] Email: [email or web address] Camilo Mulligan MD Attending Provider Physician Referring Provider Specialty: Orthopedics Orthopedic Surgery Address: [address] [place] [address], [place], [address] Email: [email or web address] Visit Number Visit Number 22 Discharge Summary PT-OP-B Current Condition Start: 10/10/23 17:54 Freq: Status: Active Protocol: Document 10/10/23 09:45 DCW (Rec: 10/11/23 16:21 DCW [id number]) Current Condition History of Current Condition Onset Date Five month history Current Complaints Right hip pain History of Current Condition Pt is a 77 year old female presenting to skilled therapy five months s/p T12 laminectomy. Pt reports she is in severe, constant pain, although thinks it might be improving. Pt experiences burning iin her hip when walking more than a half block . Unable to right in a car further than a trip to [place]. Was previously experiencing some radicular pain, but that has gone away recently. Admits that bending causes pain that gets me right at the panty line. Has occasional severe discomfort in right calf, typically when trying to sleep. Has been having anxiety/depression about her recovery, was very hesitant with coming to PT, because she is worried about anyone touching her back. Treatment Goals Patient/Caregiver Goals I want to be able to walk good and to get through this pain, hopefully it will be gone someday. PT-OP-C Subjective Start: 10/10/23 17:54 Freq: Status: Active Protocol: Document 01/10/24 10:45 DCW (Rec: 01/10/24 11:13 DCW [id number]) OP-PT Subjective Patient Comments Patient Comments Pt reports she had an increase in medication, which seems katie helping. Has a follow-up with her PCP to review recent MRI/ Pt reports she is planning on requesting a Cortisone shot. PT-OP-K Range of Motion Start: 10/10/23 17:54 Freq: Status: Active Protocol: Document 01/10/24 10:45 DCW (Rec: 01/10/24 11:08 DCW [id number]) Lumbar Spine Range of Motion Lumbar Spine Active Degrees Testing Position Standing Flexion 65 Extension 40 Lateral Flexion Left 31 Lateral Flexion Right 31 Comments Lateral flexion measured in cm from fingertips to floor PT-OP-L Special Tests Start: 10/10/23 17:54 Freq: Status: Active Protocol: Document 01/10/24 10:45 DCW (Rec: 01/10/24 11:08 DCW [id number]) Special Tests Lumbar Spine Special Tests Vertical Spine Loading Test Results Negative Compression Test Results Negative TATIANA Test Results Negative Straight Leg Raise Test Results Negative A-P Shearing Test Results Negative PT-OP-M Strength Start: 10/10/23 17:54 Freq: Status: Active Protocol: Document 01/10/24 10:45 DCW (Rec: 01/10/24 11:08 DCW [id number]) Hip Strength Hip Manual Muscle Testing Right Flexion (L2) 5 Normal Abduction 5 Normal Adduction 5 Normal External Rotation 5 Normal Internal Rotation 5 Normal Left Flexion (L2) 5 Normal Abduction 5 Normal Adduction 5 Normal External Rotation 4+ Good+ Internal Rotation 5 Normal PT-OP-T Assessment and Plan Start: 10/10/23 17:54 Freq: Status: Active Protocol: Document 01/10/24 10:45 DCW (Rec: 01/10/24 11:13 DCW [id number]) Physical Therapy Assessment Impairments Impairments Activity Tolerance,Functional Activities,Functional Mobility ,Gait,Pain,ROM,Strength,Tone Goals Three Impairment Pt unable to sit in vehicle to drive farther than [place] [facility] Goal (LTG) Pt to demonstrate reduced hip pain with extended sitting by tolerating a [address] without increased hip pain. 11/27/23: MET GOAL: reports just little discomfort 1 hr ride to [place] and back. LTG Duration 12/10/23 MET GOAL: 11/27/23 Two Impairment Pt unable to walk more than 1/ 2 block without increased right hip pain/burn [facility] Goal (LTG) Pt to report ability to ambulate one mile around her neighborhood without increased hip pain in order to improve activity tolerance LTG Duration 01/19/24 One Impairment Pt does not have an appropriate home exercise program Short Term Goal (STG) Pt to be independent and compliant with an appropriate HEP STG Duration 01/07/24 Assessment Summary Assessment Testing unremarkable today, pt showing very good overall improvement since initial evaluation. Pt knowledgeable and compliant with HEP. Feels very happy with current level of function. Patient and therapist in agreement with discharge from skilled therapy at this time. Physical Therapy Plan Frequency and Duration Frequency of Treatment 1x/Week Plan of Care Start Date 12/07/23 Plan of Care End Date 01/19/24 Therapeutic Interventions Therapeutic Interventions Gait Training,Home Exercise Program,Joint Mobilizations, Manual Therapy,Neuromuscular Re-education,Patient/Caregiver Education,Self-Care/Home Management,Soft Tissue Mobilization,Therapeutic Activities,Therapeutic Exercises Discharge Physical Therapy Discharge Comments D/c to independent HEP Next Visit Focus/Plan Next Note Type Discharge Summary
== END 2024-01-31 10:04 | disposition home or self-care (01) ==
LOC: PHYS 10:45
PROVIDERS: PCP Family Medicine; Referring Provider Orthopaedic Surgery Orthopaedic Surgery of the Spine; Visit Provider Orthopaedic Surgery Orthopaedic Surgery of the Spine
DX: M48.04 Spinal stenosis, thoracic region (principal); M25.652 Stiffness of left hip, not elsewhere classified
CPT/HCPCS: 97110; 97112; 97116; 97140; 97162; 97535

== ENCOUNTER → 2024-04-15 10:43 | Outpatient (CLI) | payer MEDICARE, OTHER, SELFPAY ==
[2021-10-08 14:31] VITALS: BMI 24.7
--- NOTE | 2024-04-15 10:45 | DI.CT.S_ITS ---
PROCEDURE: CT THORACIC SPINE WO CON INDICATIONS: THORACOLUMBAR STENOSIS TECHNIQUE: Noncontrast 3 mm thick sections acquired through the region of interest in the thoracic spine. 0.8 mm images axial are reconstructed. Sagittal and coronal reformats were then constructed. For radiation dose reduction, the following was used: automated exposure control. COMPARISON: [facility], CT, CT LUMBAR SPINE WO CON, 04/15/2024, 11:00. FINDINGS: Image quality: Excellent. Bones: No acute vertebral body compression fractures. No suspicious sclerotic or lytic bony lesions. Accentuated thoracic kyphosis is seen. There is moderate disc space narrowing seen at T9-T10, with at least moderate disc space narrowing seen at T10-T11. At T10-T11, there is mild retrolisthesis seen. At T10-T11, there is at least moderate bilateral neural foraminal narrowing. At T12-L1, there is moderate to severe disc space narrowing. Grade 1 anterolisthesis is seen at T12-L1. There is moderate disc bulge seen, with moderate bilateral neural foraminal narrowing and moderate central canal narrowing. Milder degenerative changes are seen elsewhere. Soft tissues: No paravertebral masses or hematomas. Visualized posteromedial lungs appear clear. Atherosclerotic calcification is noted. IMPRESSION: Imaging performed for operative localization. Multiple levels of degenerative change can be seen within the thoracolumbar junction. Dictated by: Andre Hubbard M.D. on 04/15/2024 at 17:13 Approved by: Andre Hubbard M.D. on 04/15/2024 at 17:16
--- NOTE | 2024-04-15 10:45 | DI.CT.S_ITS ---
PROCEDURE: CT LUMBAR SPINE WO CON INDICATIONS: THORACOLUMBAR STENOSIS TECHNIQUE: Noncontrast 3 mm thick sections acquired from the T12 level to the sacrum. Sagittal and coronal reformats were constructed. Additional 0.8 mm axial images are reformatted. For radiation dose reduction, the following was used: automated exposure control. COMPARISON: [facility], CT, CT THORACIC SPINE WO CON, 04/15/2024, 11:00. [facility], MR, MR LUMBAR SPINE WO CON, 01/02/2024, 17:35. [facility], CR, XR LUMBAR SPINE 2-3V, 05/08/2023, 7:21. [facility], MR, MR LUMBAR SPINE WO CON, 04/11/2023, 13:12. [facility], CT, CT ABDOMEN PELVIS W CON, 09/29/2021, 21:03. FINDINGS: Image quality: Excellent. Bones: No acute vertebral body compression fractures. No suspicious lytic or blastic bony lesions. No pars defects. [id number] dextroconvex lumbar scoliosis is seen. Minimal anterolisthesis is seen at T12-L1. Minimal retrolisthesis is seen at L1-L2 and L2-L3. T12-L1: Endplate irregularity and sclerosis can be seen. Moderate disc bulge is seen, which is eccentric to the right. There is moderate left-sided and mild right-sided neural foraminal narrowing. At least moderate central canal narrowing is seen L1-L2: Moderate to severe loss of disc height is seen. Endplate irregularity and sclerosis can be seen. Vacuum disc phenomenon is seen at this level. Moderate generalized disc bulge is seen. There is a central disc osteophyte protrusion. There is moderate right-sided and at least moderate left-sided neural foraminal narrowing. Mild to moderate central canal narrowing is seen. L2-L3: At least moderate loss of disc height is seen. Endplate irregularity and sclerosis can be seen. Vacuum disc phenomenon is seen at this level. Moderate generalized disc bulge is seen. There is a central disc osteophyte protrusion. There is at least moderate bilateral neural foraminal narrowing seen, right worse than left. Moderate central canal narrowing is seen. L3-L4: Moderate to severe loss of disc height is seen on the left side. Endplate irregularity and sclerosis can be seen. Partially bridging endplate osteophytes can be seen on the left, as on series 5, image 15. Vacuum disc phenomenon is seen at this level. Moderate facet joint hypertrophy is seen. There is at least moderate right-sided and moderate to severe left-sided neural foraminal narrowing. At least moderate central canal narrowing is seen. L4-L5: Ueod-vc-[id number] loss of disc height is seen on the right-side. Mac row vacuum Moderate generalized disc bulge is seen. There is a central/left disc protrusion. Moderate facet joint hypertrophy is seen. There is moderate to severe right-sided and at least moderate left-sided neural foraminal narrowing. Moderate central canal narrowing is seen. L5-S1: The disc height is relatively well preserved. Mild generalized disc bulge is seen. At least moderate facet hypertrophy is seen. Moderate bilateral neural foraminal narrowing is seen. Mild central canal narrowing is seen. Soft tissues: No retroperitoneal masses or hematomas. Visualized aorta is normal in caliber. IMPRESSION: Imaging performed for operative planning. Multiple levels of significant lumbar spine degenerative change can be seen. Gusr-[id number]-nsdzjyfh dextroconvex scoliosis. Dictated by: Andre Hubbard M.D. on 04/15/2024 at 17:35 Approved by: Andre Hubbard M.D. on 04/15/2024 at 17:41
== END ==
PROVIDERS: PCP Family Medicine; Referring Provider Neurological Surgery; Visit Provider Neurological Surgery
DX: M48.05 Spinal stenosis, thoracolumbar region (principal); M47.815 Spondylosis without myelopathy or radiculopathy, thoracolumbar region; M43.15 Spondylolisthesis, thoracolumbar region; M41.9 Scoliosis, unspecified; M47.816 Spondylosis without myelopathy or radiculopathy, lumbar region; M48.17 Ankylosing hyperostosis [Forestier], lumbosacral region
CPT/HCPCS: 72128; 72131

== ENCOUNTER → 2024-06-21 16:46 | Outpatient (ROUT) | payer MEDICARE, OTHER, SELFPAY ==
[2021-10-08 14:31] VITALS: BMI 24.7
[2024-06-21 16:55] LABS: Appearance Urine UA CLOUDY; Bilirubin Urine UA NEGATIVE (NEGATIVE); Color Urine UA YELLOW; Glucose Urine UA NEGATIVE (Negative); Ketones Urine UA NEGATIVE (NEGATIVE); Leukocyte Esterase Urine UA 3+ (NEGATIVE); Nitrite Urine UA NEGATIVE (Negative); Occult Blood Urine UA TRACE-INTACT (Negative); Protein Urine UA NEGATIVE (Negative); Urobilinogen Urine UA 0.2 E.U./dL (0.2)
[2024-06-21 17:08] LABS: Bacteria Urine Many (>30); Culture Indicated Urine Specimen Cultured; RBC Urine None Seen (0-5/HPF); Squamous Epithelial Cell Urine None Seen (0-5/HPF); Urine Volume 10mL (spun); WBC Urine >100/HPF (0-5/HPF)
== END ==
LOC: LAB 16:47
PROVIDERS: PCP Family Medicine; Visit Provider Urology
DX: R39.9 Unspecified symptoms and signs involving the genitourinary system (principal)
CPT/HCPCS: 81001; 87077; 87086; 87186

== ENCOUNTER → 2024-07-10 11:24 | Outpatient (CLI) | payer MEDICARE, OTHER, SELFPAY ==
[2021-10-08 14:31] VITALS: BMI 24.7
== END ==
PROVIDERS: PCP Family Medicine; Visit Provider Urology
DX: R33.9 Retention of urine, unspecified (principal)
CPT/HCPCS: 87077; 87086; 87186

== ENCOUNTER → 2024-08-26 12:37 | Outpatient (CLI) | payer MEDICARE, OTHER, SELFPAY ==
[2021-10-08 14:31] VITALS: BMI 24.7
[2024-08-26 12:45] LABS: Appearance Urine UA CLEAR; Bilirubin Urine UA NEGATIVE (NEGATIVE); Color Urine UA YELLOW; Glucose Urine UA NEGATIVE (Negative); Ketones Urine UA NEGATIVE (NEGATIVE); Leukocyte Esterase Urine UA 3+ (NEGATIVE); Nitrite Urine UA NEGATIVE (Negative); Occult Blood Urine UA 1+ (Negative); Protein Urine UA TRACE (Negative); Urobilinogen Urine UA 0.2 E.U./dL (0.2)
[2024-08-26 12:46] LABS: pH Urine UA 8.5 (4.5-8.0)
[2024-08-26 12:48] LABS: Urine Volume Low Vol <10mL (spun)
[2024-08-26 12:49] LABS: Bacteria Urine Many (>30); Culture Indicated Urine Specimen Cultured; RBC Urine 5-10/HPF (0-5/HPF); Squamous Epithelial Cell Urine None Seen (0-5/HPF); WBC Urine 30-100/HPF (0-5/HPF)
== END ==
PROVIDERS: PCP Family Medicine; Visit Provider Urology
DX: R39.9 Unspecified symptoms and signs involving the genitourinary system (principal)
CPT/HCPCS: 81001; 87077; 87086

== ENCOUNTER → 2024-08-28 12:45 | Outpatient (CLI) | payer MEDICARE, OTHER, SELFPAY ==
[2021-10-08 14:31] VITALS: BMI 24.7
--- NOTE | 2024-08-28 12:46 | DI.RAD.S_ITS ---
PROCEDURE: XR DEXA AXIAL SKELETON INDICATIONS: osteoporosis COMPARISON: [facility], , XR DEXA AXIAL SKELETON, 08/17/2022, 9:46. FINDINGS: Left Forearm: Bone mineral density 0.603 g/cm2, T score -1.5, compared to -1.9 Fracture Risk Calculation (when applicable): Mild applicable (T score greater or equal to -1.0 to: NORMAL) (T score from -1.1 to -2.4: OSTEOPENIA) (T score less than or equal to -2.5: OSTEOPOROSIS) IMPRESSION: Mild osteopenia improved by approximately 4% compared to exam Follow-up guidelines as follows: Osteoporosis: Consider a repeat DEXA and Vertebral Fracture Assessment (VFA) exam in 2 years or sooner if medically necessary, to reassess this patient's status. Osteopenia: Consider a repeat DEXA in 2-3 years to reassess this patient's status, or if there is a new clinical indication. Normal: Consider a repeat DEXA in 5 years or sooner, or if there is a new clinical indication. All treatment decisions require clinical judgment and consideration of individual patient factors, including patient preferences, comorbidities, previous drug use, risk factors not captured in the FRAX model (e.g., frailty, falls, vitamin D deficiency, increased bone turnover, interval significant decline in bone density ) and possible under- or over-estimation of fracture risk by FRAX. In addition, the NOF Guide recommends that FDA-approved medical therapies be considered in postmenopausal women and men age >= 50 years with a: * Hip or vertebral (clinical or morphometric) fracture * T-score of <=-2.5 at the spine or hip * Ten-year fracture probability by FRAX of >= 3% for hip fracture or >=20% for major osteoporotic fracture. Dictated by: Chloé Davis M.D. on 08/28/2024 at 19:42 Approved by: Chloé Davis M.D. on 08/28/2024 at 19:43
== END ==
LOC: RAD 12:46
PROVIDERS: PCP Family Medicine; Referring Provider Family Medicine; Visit Provider Family Medicine
DX: M81.0 Age-related osteoporosis without current pathological fracture (principal); M85.832 Other specified disorders of bone density and structure, left forearm
CPT/HCPCS: 77080

== ENCOUNTER → 2024-11-25 13:58 | Outpatient (CLI) | payer MEDICARE, OTHER, SELFPAY ==
[2021-10-08 14:31] VITALS: BMI 24.7
[2024-11-25 14:06] LABS: Appearance Urine UA CLEAR; Bilirubin Urine UA NEGATIVE (NEGATIVE); Color Urine UA YELLOW; Glucose Urine UA NEGATIVE (Negative); Ketones Urine UA NEGATIVE (NEGATIVE); Leukocyte Esterase Urine UA NEGATIVE (NEGATIVE); Nitrite Urine UA NEGATIVE (Negative); Occult Blood Urine UA TRACE-INTACT (Negative); Protein Urine UA NEGATIVE (Negative); Specific Gravity Urine UA 1.010 (1.000-1.035); Urobilinogen Urine UA 0.2 E.U./dL (0.2)
[2024-11-25 14:21] LABS: pH Urine UA 8.0 (4.5-8.0)
[2024-11-25 14:31] LABS: Culture Indicated Urine Cult Not Indicated
== END ==
PROVIDERS: PCP Family Medicine; Visit Provider Urology
DX: R33.9 Retention of urine, unspecified (principal); R39.9 Unspecified symptoms and signs involving the genitourinary system
CPT/HCPCS: 51798; 81001; 99213

== ENCOUNTER → 2025-01-14 13:47 | Outpatient (CLI) | payer MEDICARE, OTHER, SELFPAY ==
[2021-10-08 14:31] VITALS: BMI 24.7
--- NOTE | 2025-01-14 13:48 | DI.MG.S_ITS ---
MM screening mammo BI: 01/14/2025. BI-RADS: 2 CLINICAL: 79-year old female for bilateral screening mammogram. Tyrer-Cuzick lifetime risk of 1.1%. No personal or first-degree family history of breast cancer. Current reported family history of breast cancer: maternal aunt. PRIOR EXAMS 12/14/2023, 12/10/2022, 12/09/2021, 11/28/2020, MAMMOGRAPHY TECHNIQUE: 2D and 3D (tomosynthesis) digital mammographic views obtained, with additional images as needed for full coverage. Current study was also evaluated with a Computer Aided Detection (CAD) system. DENSITY B. There are scattered areas of fibroglandular density. MAMMOGRAPHY FINDINGS Bilateral: Typically-benign vascular calcifications noted. IMPRESSION: * No evidence of malignancy with benign findings. RECOMMENDATIONS Bilateral * Annual screening mammography. OVERALL ASSESSMENT CATEGORY BI-RADS-2: Benign. The [employer] recommends annual screening mammography beginning at age 40 for women with average risk of breast cancer. ELECTRONICALLY SIGNED: Dandre Ledezma M.D. on 01/15/2025 at 07:21:13 AM PT Interpreting Station ID: [id number]
== END ==
LOC: MAMMO 13:47
PROVIDERS: PCP Family Medicine; Referring Provider Family Medicine; Visit Provider Family Medicine
DX: Z12.31 Encounter for screening mammogram for malignant neoplasm of breast (principal); R92.1 Mammographic calcification found on diagnostic imaging of breast; Z80.3 Family history of malignant neoplasm of breast
CPT/HCPCS: 77063; 77067